=== PATIENT | male | born 1970 | race Caucasian/White ===

== ENCOUNTER → 2020-09-23 07:47 | Outpatient (BNVA) | payer SELFPAY | PROVIDERS: PCP Nurse Practitioner Family; Visit Provider Internal Medicine | DX: Z02.79 Encounter for issue of other medical certificate (principal) ==

== ENCOUNTER 2020-10-25 13:27 | Emergency (ER) | payer OTHER, SELFPAY ==
--- NOTE | ~2020-10-25 | CT_ITS ---
EXAMINATION: CT FACIAL BONES WITH CONTRAST CLINICAL INFORMATION: Right facial swelling. Evaluate for dental abscess. COMPARISON: None TECHNIQUE: Diffuse axial CT images of the facial bones were performed following the administration of 85 mL Omnipaque 350 contrast. Sagittal and coronal reformats were provided and reviewed. This CT examination was performed using dose optimization techniques as appropriate, variously including the following: *Automated exposure control. *Adjustment of mA and/or kV according to patient size (this includes techniques or standardized protocols for targeted exams where dose is matched to indication/reason for exam; i.e. extremities or head). *Use of iterative reconstruction technique. DLP: 421 mGy-cm FINDINGS: There is no acute maxillofacial fracture. The pterygoid plates are intact. The zygomatic arches are intact. The lamina papyracea are intact. The orbital rims are intact. Mucoperiosteal thickening of the right maxillary sinus, consistent with chronic sinusitis. No air-fluid levels are seen. There is no significant deviation of the nasal septum. The ostiomeatal complexes are clear. The lamina papyracea are intact. The ethmoid roofs are symmetric. The carotid canals are normally covered by bone. Adjacent to the roots of the right maxillary first premolar, there is mild lucency, which could indicate an early periapical abscess. There is mild adjacent soft tissue swelling/stranding within the overlying soft tissues which measures up to 1.3 cm in greatest axial dimension. This may represent a reactive lymph node versus phlegmonous change. No abscess formation. The mastoid air cells and visualized middle ear cavities are well aerated. The orbits are normal. The TMJs are unremarkable. The imaged portions of the brain demonstrate no acute abnormality. CT/CT facial bones w con IMPRESSION: 1. Lucency adjacent to the roots of the right maxillary first premolar which could indicate an early periapical abscess. Adjacent soft tissue swelling/stranding indicating phlegmonous change versus a reactive lymph node. No soft tissue abscess formation. 2. Mild chronic sinusitis of the right maxillary sinus.
[2020-10-25 14:11] VITALS: BP 143/98; PULSE 94; RESP 18; TEMP 37; O2SAT 96; BMI 31.4
[2020-10-25 16:42] LABS: MANUAL DIFF FLAG NO
[2020-10-25 16:43] LABS: Basophils Percent Auto 0.4 % (0-2); Eosinophils Absolute Auto 0.1 X10*3/uL (0.0-0.4); Eosinophils Percent Auto 0.8 % (0-4); Hematocrit 42.5 % (42-52); Hemoglobin 13.9 g/dl (14.0-18.0); Imm Gran Abs Auto 0.02 X10*3/uL (0.00-0.03); Imm Gran Pct Auto 0.2 % (0.0-0.4); Lymphocytes Absolute Auto 1.7 X10*3/uL (1.2-4.9); Lymphocytes Percent Auto 16.9 % (20-40); Mean Corpuscular HGB Conc 32.7 g/dl (31.0-36.0); Mean Corpuscular Hemoglobin 30.5 pg (27.0-33.0); Mean Corpuscular Volume 93.2 fL (80-98); Mean Platelet Volume 9.7 fL (9.4-12.4); Monocytes Absolute Auto 0.8 X10*3/uL (0.1-1.2); Monocytes Percent Auto 8.4 % (2-11); Neutrophils Absolute Auto 7.2 X10*3/uL (2.0-8.3); Neutrophils Percent Auto 73.3 % (45-73); Platelet Count 303 X10*3/uL (160-400); Red Blood Count 4.56 X10*6/uL (4.60-5.80); Red Cell Distribution Width 12.1 % (11.0-16.0); White Blood Count 9.8 X10*3/uL (4.8-10.8)
[2020-10-25 17:04] LABS: Lactic Acid 1.9 mmol/L (0.5-2.0)
[2020-10-25 17:07] LABS: Anion Gap 17 (12-20); Blood Urea Nitrogen 7 mg/dL (9-16); Calcium 9.9 mg/dL (8.4-10.2); Carbon Dioxide 29 mmol/L (22-29); Chloride 103 mmol/L (96-108); Creatinine Clr Calc Pharmacy 130.1; Estimated Glomerular Filt Rate > 60; Glucose Random 104 mg/dL (60-115); Potassium 4.6 mmol/L (3.3-5.1); Sodium 144 mmol/L (135-145)
[2020-10-25] MEDS: Clindamycin Phosphate/D5W 600 MG/50 ML PIGGYBACK 100 MG IV (17:10)
[2020-10-25] MEDS: Ketorolac Tromethamine 15 MG/ML VIAL IVPUSH (17:10)
[2020-10-25] MEDS: iohexoL 350 MG/ML 100 ML INFUS..BTL IV (17:55)
--- NOTE | 2020-10-25 17:59 | ED_ITS ---
HPI - Dental/Oral General Chief complaint: Dental/Oral Stated complaint: Abcess Time Seen by Provider: 10/25/20 16:13 Source: patient Mode of arrival: ambulatory History of Present Illness HPI Narrative: 50-year-old male with past medical history of hypertension presenting to the ED complaining of right-sided facial swelling and pain x2 d ays, concern for dental abscess. admits has had broken tooth times years. Denies drainage from area, fever, chills, ear pain, sore throat, swelling or pus drainage, dental trauma or injury Related Data Previous Rx's Medication Instructions Recorded clindamycin HCl 450 mg PO Q8H 7 Days #32 cap 10/25/20 hydrocodone-acetaminophen 1 tab PO Q8H PRN 3 Days #9 tab 10/25/20 ibuprofen 800 mg PO Q8H PRN #14 tab 10/25/20 Allergies Allergy/AdvReac Type Severity Reaction Status Date / Time No Known Allergies Allergy Verified 10/25/20 14:11 Review of Systems Review of Systems: Constitutional: No Fever, No Chills ENT/Mouth: No Ear Pain, No Nasal Congestion, No Sinus Pain, No sore throat, No Swallowing Difficulty, + Dental pain, +facial swelling Cardiovascular: No Chest Pain, No SOB Respiratory: No Cough Gastrointestinal: No Nausea, No Vomiting Musculoskeletal: No joint pain Skin: No Skin Lesions, No rash Yes all other systems are reviewed and are negative [facility] [place] Past Medical History Attestation statement: The following information was validated with the patient. Medical History (Updated 10/25/20 @ 18:06 by NEYDA Jose) HTN (hypertension) Social History Social History Advance Directives: No Advance Directives Information Provided: No Physical Exam Vital Signs: Vital Signs: Last Vital Signs Temp 98.6 F 10/25/20 14:11 Pulse 94 10/25/20 14:11 Resp 18 10/25/20 14:11 BP 143/98 H 10/25/20 14:11 Pulse Ox 96 10/25/20 14:11 Body Mass Index 31.4 Const: General: cooperative, healthy appearing and no acute distress Orientation/consciousness: patient oriented x3 Limitations: no limitations HENMT: Other: right-sided facial swelling noted with tenderness to palpation. No cellulitis. Right upper 5th tooth broken chronically with surrounding gingival swelling, no fluctuance, no drainage/ hospice. Tender to palpation. No appreciable intraoral abscess. Head: Yes normal to inspection Ears: hearing grossly normal bilaterally and TM's normal bilaterally General nose exam: Normal external nose present Mouth: Normal oral and palatal mucosa present Throat: Yes tonsils normal and Yes uvula midline Eyes: General: appearance normal, both eyes and all related structures EOM: EOMs intact bilaterally Neck: Neck: Yes normal visual inspection, Yes no lymphadenopathy and Yes no meningeal signs Resp: Effort & Inspection: normal respiratory effort, not labored, no nasal flaring and no stridor Cardio: Rate: regular rate Skin: Rashes: no rashes Wounds: no wounds Neuro: General: patient oriented x3 and no meningeal signs Gait exam (Neuro): Normal gait present Extrem: General: Yes normal to inspection Course Course Course Narrative: - no leukocytosis, labs otherwise unremarkable, lactic negative patient received 1st dose of IV clindamycin in the ED -1800-- ED care transferred to [facility] pending CT results MDM - Dental/Oral MDM Narrative Medical decision making narrative: 50-year-old male with past medical history of hypertension presenting to the ED complaining of right-sided facial swelling and pain x2 days, concern for dental abscess. admits has had broken tooth times years. On exam vital signs stable, NAD, physical exam as above. Concern for dental abscess. No appreciable intraoral or drainable collection at this time plan: Labs, CT, IV antibiotics, reassess Medical Records Attestation: I reviewed the patient's medical records. Lab Data Attestation: I reviewed the patient's lab results. Result diagrams: 10/25/20 16:35 10/25/20 16:35 Labs: Lab Results 10/25/20 10/25/20 10/25/20 Range/Units 16:35 16:35 16:35 WBC 9.8 (4.8-10.8) X10*3/uL RBC 4.56 L (4.60-5.80) X10*6/uL Hgb 13.9 L (14.0-18.0) g/dl Hct 42.5 (42-52) % MCV 93.2 (80-98) fL MCH 30.5 (27.0-33.0) pg MCHC 32.7 (31.0-36.0) g/dl RDW 12.1 (11.0-16.0) % Plt Count 303 (160-400) X10*3/uL MPV 9.7 (9.4-12.4) fL Immature Gran % (Auto) 0.2 (0.0-0.4) % Neut % (Auto) 73.3 H (45-73) % Lymph % (Auto) 16.9 L (20-40) % [place] % (Auto) 8.4 (2-11) % Eos % (Auto) 0.8 (0-4) % Baso % (Auto) 0.4 (0-2) % Lymph # (Auto) 1.7 (1.2-4.9) X10*3/uL [place] # (Auto) 0.8 (0.1-1.2) X10*3/uL Eos # (Auto) 0.1 (0.0-0.4) X10*3/uL Baso # (Auto) 0.0 (0.0-0.2) X10*3/uL Abs Immat Gran (auto) 0.02 (0.00-0.03) X10*3/uL Absolute Neuts (auto) 7.2 (2.0-8.3) X10*3/uL Absolute Nucleated RBC 0.000 (0.0-0.012) X10*3/uL Nucleated RBC % (auto) 0.0 (0.0-0.2) /100WBC Sodium 144 (135-145) mmol/L Potassium 4.6 (3.3-5.1) mmol/L Chloride 103 (96-108) mmol/L Carbon Dioxide 29 (22-29) mmol/L Anion Gap 17 (12-20) BUN 7 L (9-16) mg/dL Creatinine 0.77 (0.5-1.4) mg/dL Estim Creat Clear Calc 130.1 Estimated GFR > 60 Random Glucose 104 (60-115) mg/dL Lactic Acid 1.9 (0.5-2.0) mmol/L Calcium 9.9 (8.4-10.2) mg/dL Discharge Plan Discharge Clinical Impression: Dental abscess Additional Instructions: clindamycin as an antibiotic, take as prescribed [place] with no opiate pain medication, take only when pain is severe for the next 3 days, in addition take ibuprofen you need to follow-up with a dentist deidra Prescriptions: New clindamycin HCl 300 mg capsule 450 mg PO Q8H 7 Days Qty: 32 RF: 0 hydrocodone-acetaminophen 5-325 mg tablet 1 tab PO Q8H PRN (Reason: pain, severe) 3 Days Qty: 9 RF: 0 ibuprofen 800 mg tablet 800 mg PO Q8H PRN (Reason: pain) Qty: 14 RF: 0 Referrals: Anusha Morgan DMD [Dentist] - 2 days Arley Bond DDS [Physician] - 2 days
[2020-10-25] MEDS: 0.9 % Sodium Chloride 1,000 ML 999 ML IVCONT (18:14)
[2020-10-25] MEDS: Lidocaine HCl 2 % MPF 5 ML VIAL SUBCUT (19:46)
--- NOTE | 2020-10-25 20:54 | PC.NURSE ---
[facility] BOJORQUEZRICKY ATTEMPTED TO DRAIN ABSCESS WITH NO EFFECT LIDO APPLIED TO THE AREA.
== END 2020-10-25 20:55 | disposition home or self-care (01) ==
PROVIDERS: Physician Assistant; Emergency Provider Emergency Medicine Emergency Medical Services; PCP Nurse Practitioner Family
DX: K04.7 Periapical abscess without sinus (principal); I10 Essential (primary) hypertension
CPT/HCPCS: 36415; 70487; 80048; 83605; 85025; 87040; 96361; 96365; 96372; 96375; 99284; J1885; Q9967

== ENCOUNTER 2024-08-17 16:24 | Emergency (ER) | payer OTHER, SELFPAY ==
--- NOTE | ~2024-08-17 | CT_ITS ---
CLINICAL HISTORY: CP, SOB, tachycardia CT angiography chest with contrast. 3D Postprocessing. Comparison: CR - XR CHEST 2V - 08/17/24 16:56 EDT Findings: The heart size is normal. RV/LV ratio is normal. Unremarkable thoracic aorta and great vessels. No aneurysm. No pulmonary artery filling defects. The visualized thyroid and mediastinum are unremarkable. A 5.5 x 4.6 x 4.2 cm right hilar well-circumscribed lesion measuring simple fluid density. Lungs are clear. The upper abdomen is unremarkable. The bones are intact. IMPRESSION: 1. No pulmonary embolus. No acute aortic syndrome. Lungs are clear. 2. A 5.5 cm right hilar cystic lesion. Differentials include forgut duplication cyst, or cystic lymphadenopathy. Correlate with prior imaging if available or short-term follow-up is recommended. This document has been electronically signed by: Donna Toribio MD on 08/17/2024 22:42:17
--- NOTE | ~2024-08-17 | XR_ITS ---
CLINICAL HISTORY: chest pain 2 views of the chest. Findings: Heart size is normal. There is no consolidation. No pleural effusion is seen. Impression: No consolidation. There is mild prominence of the right hilum that is indeterminate. Recommend comparison to previous or consider follow-up CT to exclude an underlying abnormality. This document has been electronically signed by: Keanu Del Cid MD on 08/17/2024 17:18:56
--- NOTE | ~2024-08-17 | US_ITS ---
CLINICAL HISTORY: calf pain, SOB, CP Right lower extremity venous ultrasound. Findings: The deep venous system is normally compressible. There is color Doppler flow with augmentation. Impression: No DVT is identified. This document has been electronically signed by: Keanu Del Cid MD on 08/17/2024 21:08:09
--- NOTE | 2024-08-17 16:26 | ECG_ITS ---
Test Reason : chest pain Blood Pressure : */* mmHG Vent. Rate : 113 BPM Atrial Rate : 113 BPM P-R Int : 130 ms QRS Dur : 70 ms QT Int : 300 ms P-R-T Axes : 46 -9 31 degrees QTcB Int : 411 ms Sinus tachycardia Otherwise normal ECG No previous ECGs available Referred By: Nicole Gilbert Electronically Signed By: REYMUNDO RICKS
--- NOTE | 2024-08-17 16:31 | ED.GENADULT ---
HPI - General Adult General Chief complaint: Chest Pain Stated complaint: chest pain Time Seen by Provider: 08/17/24 19:44 Source: patient Mode of arrival: ambulatory Limitations: no limitations History of Present Illness ED Provider: jero longo np HPI narrative: Patient is a 54-year-old male who presents emergency department for evaluation. He reports 3 days ago; 08/15/2024 at 04:00 he awoke from sleep with a diffuse anterior chest pain described as a pressure. Since its onset the pain has been constant with a varying intensity. Feels it radiate down the bilateral arms. Pain is at times exacerbated when lying in a side-lying position. He also endorses having shortness of breath noticeably on exertion or when going upstairs which is atypical for him. When asked, he does admit to having right lateral calf pain over the past couple of months, gets worse with excessive walking, has noticed a mild increase in the pain recently. He denies history of VTE/malignancy. He previously was a cigarette smoker but has quit approximately 8 years ago. Related Data Previous Rx's ?Medication ?Instructions ?Recorded clindamycin HCl 300 mg capsule 450 mg (1.5 x 300 mg) PO Q8H 7 10/25/20 days #32 caps hydrocodone 5 mg-acetaminophen 325 1 tab PO Q8H PRN pain, severe 3 10/25/20 mg tablet days #9 tabs ibuprofen 800 mg tablet 800 mg PO Q8H PRN pain #14 tabs 10/25/20 Allergies Allergy/AdvReac Type Severity Reaction Status Date / Time No Known Allergies Allergy Verified 08/17/24 16:35 Review of Systems Review of Systems: Yes all other systems are reviewed and are negative PMFSH Past Medical History Attestation statement: The following information was validated with the patient. Source: old records reviewed Medical History HTN (hypertension) Social History Social History Smoked in Last 30 Days: No Use of substances other than those prescribed or required for medical reasons: No Advance Directives: No Advance Directives Information Provided: Yes Physical Exam ED Vital Signs: Vital Signs - 24 hr 08/17/24 16:32 08/17/24 18:00 08/17/24 20:00 Temperature 100.2 F 98.3 F 98.3 F Pulse Rate 113 H 96 96 Respiratory Rate 16 16 16 Blood Pressure 129/83 140/85 H 139/92 H Pulse Oximetry 97 100 99 Oxygen Delivery Method Room Air Room Air Room Air 08/17/24 21:11 08/17/24 22:00 Temperature 99.6 F 98.3 F Pulse Rate 93 76 Respiratory Rate 19 16 Blood Pressure 126/88 128/77 Pulse Oximetry 96 98 Oxygen Delivery Method Room Air Room Air BMI result Body Mass Index 28.5 Appearance: Alert.?Oriented to person, place and time. No acute distress.?Normal affect. Eyes: Pupils equal, round and reactive to light.? ENT: Pharynx normal.?? Neck: Normal inspection.? Neck supple.??No JVD. CVS: Heart sounds normal. Normal heart rate and rhythm.? Pulses normal.?? Respiratory: No respiratory distress.? Lung sounds clear to auscultation bilaterally?? Abdomen: Soft and non-tender. Normoactive bowel sounds. No pulsatile mass.?? Skin: Skin warm and dry.? Normal skin color.? ?? Extremities: No lower extremity edema.? No calf ttp? Neuro: Moves all extremities spontaneously. Sensation intact bilaterally. CN II-XII intact. No focal neuro deficits. Ambulates with normal steady gait. Course Course Course Narrative: This is a rapid medical exam performed by Rubina Gilbert NP: Additional HPI, ROS, PE not included below will be deferred to primary provider. Patient is a 54-year-old male presenting with complaint of chest pain since 4am Saturday, has been constant since that time. Rates 8/10. Associated dyspnea, worse with exertion. Pain radiates down both arms. Denies pmhx but has not been to a doctor in some time. Plan: EKG, labs, CXR Reevaluation(s) Reevaluation #1: CT angio of the chest is without evidence of pulmonary embolism, no consolidation reports rate to suggest pneumonia. There is a 5.5 cm right hilar cystic lesion, reviewed this finding with patient, recommend outpatient follow-up with pulmonology I provided contact information. Delta troponin is flat not consistent with ACS. Reviewed possibly musculoskeletal etiology versus viral inflammatory condition. Conservative treatment, outpatient follow-up with PCP and strict return precautions. IMPRESSION: 1. No pulmonary embolus. No acute aortic syndrome. Lungs are clear. 2. A 5.5 cm right hilar cystic lesion. Differentials include forgut duplication cyst, or cystic lymphadenopathy. Correlate with prior imaging if available or short-term follow-up is recommended. Medications Administered Discontinued Medications Generic Name Dose Route Start Last Admin Trade Name Ellen PRN Reason Stop Dose Admin Acetaminophen 975 mg 08/17/24 21:41 08/17/24 21:57 Acetaminophen 325 Mg Tablet PO 08/17/24 21:42 975 mg ONCE ONE Administration Sodium Chloride 1,000 mls @ 999 mls/hr 08/17/24 20:00 08/17/24 20:16 Ns IV 08/17/24 21:00 999 mls/hr .Q1H1M JEB Administration Iohexol 65 ml 08/17/24 22:02 08/17/24 22:03 Iohexol 350 Mg/Ml 100 Ml Infus..Btl IV 08/17/24 22:03 65 ml ONCE ONE Administration Medical Decision Making Medical Decision Making [facility] Narrative: Patient is a 54 year past medical history of hypertension not currently medicated as blood pressure was maintained s/p weight loss 2 years ago who presents to the emergency department for evaluation with complaint of chest pain, shortness of breath constant in nature and varying intensity over the past 3 days as per HPI in addition to right lateral calf pain over the past few months. No evidence of volume overload or shock on exam. EKG without signs of acute ischemia, without evidence of STEMI revealing a sinus tachycardia with ventricular rate of 113, QTC 411. Low suspicion for pneumothorax, thoracic aortic dissection, cardiac effusion / tamponade. No recent trauma or injury, no tracheal deviation, unlikely tension pneumothorax. No recent URI symptoms to suggest viral illness, pneumonia, costochondritis. Given his associated right calf pain, will obtain CT angio of the chest to exclude pulmonary embolism in addition to venous duplex ultrasound of the right lower extremity. No abdominal tenderness upon palpation, negative Kidd sign, unlikely acute cholecystitis, choledocholithiasis, no fever or jaundice to suggest acute cholangitis, may possibly be biliary colic secondary to cholelithiasis. Denies associated acid reflux, no tenderness upon palpation over the epigastrium or left upper quadrant to suggest gastritis, no recent hematemesis history less likely to suggest PUD. Denies excessive alcohol consumption, history of diabetes, lower suspicion acute pancreatitis. Differential Diagnosis Differential Diagnoses: The differential diagnosis associated with the presentation includes (See narrative above) Admission/Observation Consideration of admission/observation: Escalation of care including admission/observation considered (See narrative above and course narrative for further detail) Lab Data MDM Lab Attestation statement: I reviewed the patient's lab results. CBC reveals a mild leukocytosis 11,600, mild normocytic anemia that does not meet transfusion criteria, no thrombocytopenia. No electrolyte derangement. No NATAN. LFTs unremarkable. High sensitive troponin negative x2. Viral serologies are negative. 08/17/24 16:37 08/17/24 16:37 Labs: Lab Results 08/17/24 Range/Units 16:37 WBC 11.6 H (4.8-10.8) X10*3/uL RBC 4.24 L (4.60-5.80) X10*6/uL Hgb 13.3 L (14.0-18.0) g/dl Hct 38.3 L (42.0-52.0) % MCV 90.3 (80.0-98.0) fL MCH 31.4 (27.0-33.0) pg MCHC 34.7 (31.0-36.0) g/dl RDW 11.7 (11.0-16.0) % Plt Count 297 (160-400) X10*3/uL MPV 9.7 (9.4-12.4) fL Immature Gran % (Auto) 0.3 (0.0-0.4) % Neut % (Auto) 83.2 H (45-73) % Lymph % (Auto) 6.8 L (20-40) % [place] % (Auto) 8.9 (2-11) % Eos % (Auto) 0.3 (0-4) % Baso % (Auto) 0.5 (0-2) % Lymph # (Auto) 0.8 L (1.2-4.9) X10*3/uL [place] # (Auto) 1.0 (0.1-1.2) X10*3/uL Eos # (Auto) 0.0 (0.0-0.4) X10*3/uL Baso # (Auto) 0.1 (0.0-0.2) X10*3/uL Abs Immat Gran (auto) 0.04 H (0.00-0.03) X10*3/uL Absolute Neuts (auto) 9.6 H (2.0-8.3) x10*3/uL Absolute Nucleated RBC 0.000 (0.0-0.012) X10*3/uL Nucleated RBC % (auto) 0.0 (0.0-0.2) /100WBC Sodium 137 (135-145) mmol/L Potassium 3.8 (3.3-5.1) mmol/L Chloride 101 (96-108) mmol/L Carbon Dioxide 24 (22-29) mmol/L Anion Gap 16 (12-20) BUN 10 (9-16) mg/dL Creatinine 0.81 (0.5-1.4) mg/dL Estim Creat Clear Calc 112.7 Estimated GFR > 60 Random Glucose 115 (60-115) mg/dL Calcium 9.7 (8.4-10.2) mg/dL Magnesium 2.1 (1.6-2.6) mg/dL Total Bilirubin 0.4 (0.0-1.0) mg/dL AST 36 (5-37) U/L ALT 19 (0-40) U/L Alkaline Phosphatase 75 (39-117) U/L Troponin I High Sens < 2.7 (<3.5-35.0) ng/L Total Protein 7.7 (6.5-8.0) g/dL Albumin 4.2 (3.5-5.0) g/dL Influenza Type A (PCR) NEGATIVE (Negative) Influenza Type B (PCR) NEGATIVE (Negative) RSV RNA Qual (PCR) NEGATIVE (Negative) SARS-CoV-2 RNA (RT-PCR) NEGATIVE (Negative) Independent Interpretation I performed an independent interpretation of an: EKG (See narrative above) and Plain X-Ray (No notable consolidation or infiltrate) Radiology Impression Discussion of test interpretation with radiology: I have reviewed the radiologist's reading. Radiologist Impression: 2 views of the chest. Findings: Heart size is normal. There is no consolidation. No pleural effusion is seen. Impression: No consolidation. There is mild prominence of the right hilum that is indeterminate. Recommend comparison to previous or consider follow-up CT to exclude an underlying abnormality. CT angiography chest with contrast. 3D Postprocessing. Comparison: CR - XR CHEST 2V - 08/17/24 16:56 EDT Findings: The heart size is normal. RV/LV ratio is normal. Unremarkable thoracic aorta and great vessels. No aneurysm. No pulmonary artery filling defects. The visualized thyroid and mediastinum are unremarkable. A 5.5 x 4.6 x 4.2 cm right hilar well-circumscribed lesion measuring simple fluid density. Lungs are clear. The upper abdomen is unremarkable. The bones are intact. IMPRESSION: 1. No pulmonary embolus. No acute aortic syndrome. Lungs are clear. 2. A 5.5 cm right hilar cystic lesion. Differentials include forgut duplication cyst, or cystic lymphadenopathy. Correlate with prior imaging if available or short-term follow-up is recommended. Independent Historian Clinical information obtained from an independent historian. History obtained from or confirmed by: Spouse Chronic Conditions Patient?s care impacted by: Other (See narrative above) Discharge Plan Discharge Clinical Impression: Chest pain, Lesion of lung Patient Disposition: Home, Self-Care Instructions: Chest Pain (ED) Additional Instructions: Ultrasound of your right leg today does not show evidence of a blood clot which is very reassuring. The CT scan obtained of your chest does not show evidence of pneumonia, or a blood clot in the lungs. There was an incidental finding of a cystic lesion in the right lung. This is nonspecific and likely not the reason for your symptoms today. However it should be followed up outpatient with pulmonology. I provided contact information for the pulmonology office associated with our hospital. EKG and blood work does not favor a heart attack as the cause for your symptoms. Your pain may be secondary to an inflammatory viral condition versus musculoskeletal pain Be sure to rest over the next few days, You can take ibuprofen 200 mg, 3 tablets (600mg) every 6-8 hours as needed for pain, in addition to Tylenol 500 mg, 2 tablets (1,000mg) every 4-6 hours as needed for pain, but not to exceed 3 doses daily (3,000mg).? I have sent an albuterol inhaler prescription to your pharmacy to use as needed for shortness of breath 2 puffs every 4-6 hours. IMPRESSION: CT angio chest 1. No pulmonary embolus. No acute aortic syndrome. Lungs are clear. 2. A 5.5 cm right hilar cystic lesion. Differentials include forgut duplication cyst, or cystic lymphadenopathy. Correlate with prior imaging if available or short-term follow-up is recommended. Prescriptions: No Action clindamycin HCl 300 mg capsule 450 mg PO Q8H 7 Days Qty: 32 0RF hydrocodone-acetaminophen 5-325 mg tablet 1 tab PO Q8H PRN (Reason: pain, severe) 3 Days Qty: 9 0RF ibuprofen 800 mg tablet 800 mg PO Q8H PRN (Reason: pain) Qty: 14 0RF Referrals: Jp Grider MD [Physician] - Cruzito Keller MD [Physician] - Print Language: Armenian
[2024-08-17 16:32] VITALS: BP 129/83; PULSE 113; RESP 16; TEMP 37.9; O2SAT 97; BMI 28.5
[2024-08-17 16:49] LABS: MANUAL DIFF FLAG NO
[2024-08-17 16:53] LABS: Basophils Absolute Auto 0.1 X10*3/uL (0.0-0.2); Basophils Percent Auto 0.5 % (0-2); Eosinophils Percent Auto 0.3 % (0-4); Hematocrit 38.3 % (42.0-52.0); Hemoglobin 13.3 g/dl (14.0-18.0); Imm Gran Abs Auto 0.04 X10*3/uL (0.00-0.03); Imm Gran Pct Auto 0.3 % (0.0-0.4); Lymphocytes Absolute Auto 0.8 X10*3/uL (1.2-4.9); Lymphocytes Percent Auto 6.8 % (20-40); Mean Corpuscular HGB Conc 34.7 g/dl (31.0-36.0); Mean Corpuscular Hemoglobin 31.4 pg (27.0-33.0); Mean Corpuscular Volume 90.3 fL (80.0-98.0); Mean Platelet Volume 9.7 fL (9.4-12.4); Monocytes Percent Auto 8.9 % (2-11); Neutrophils Absolute Auto 9.6 x10*3/uL (2.0-8.3); Neutrophils Percent Auto 83.2 % (45-73); Platelet Count 297 X10*3/uL (160-400); Red Blood Count 4.24 X10*6/uL (4.60-5.80); Red Cell Distribution Width 11.7 % (11.0-16.0); White Blood Count 11.6 X10*3/uL (4.8-10.8)
[2024-08-17 17:07] LABS: Alanine Aminotransferase 19 U/L (0-40); Albumin Level 4.2 g/dL (3.5-5.0); Alkaline Phosphatase 75 U/L (39-117); Anion Gap 16 (12-20); Aspartate Amino Transferase 36 U/L (5-37); Bilirubin Total 0.4 mg/dL (0.0-1.0); Blood Urea Nitrogen 10 mg/dL (9-16); Calcium 9.7 mg/dL (8.4-10.2); Carbon Dioxide 24 mmol/L (22-29); Chloride 101 mmol/L (96-108); Creatinine Clr Calc Pharmacy 112.7; Estimated Glomerular Filt Rate > 60; Glucose Random 115 mg/dL (60-115); Magnesium 2.1 mg/dL (1.6-2.6); Potassium 3.8 mmol/L (3.3-5.1); Sodium 137 mmol/L (135-145); Total Protein 7.7 g/dL (6.5-8.0)
[2024-08-17 17:14] LABS: Troponin-I High Sensitivity < 2.7 ng/L (<3.5-35.0)
[2024-08-17 17:31] LABS: Influenza A PCR NEGATIVE (Negative); Influenza B PCR NEGATIVE (Negative); Resp Syncy Virus RNA Qual PCR NEGATIVE (Negative); SARS COV2 PCR INHOUSE NEGATIVE (Negative)
[2024-08-17 18:00] VITALS: BP 140/85; PULSE 96; RESP 16; TEMP 36.8; O2SAT 100
[2024-08-17 20:00] VITALS: BP 139/92; PULSE 96; RESP 16; TEMP 36.8; O2SAT 99
[2024-08-17] MEDS: 0.9 % Sodium Chloride 1,000 ML 999 ML IV (20:16)
[2024-08-17 21:11] VITALS: BP 126/88; PULSE 93; RESP 19; TEMP 37.6; O2SAT 96
[2024-08-17] MEDS: Acetaminophen 325 MG TABLET 975 MG PO (21:57)
[2024-08-17 22:00] VITALS: BP 128/77; PULSE 76; RESP 16; TEMP 36.8; O2SAT 98
[2024-08-17] MEDS: iohexoL 350 MG/ML 100 ML INFUS..BTL 65 ML IV (22:03)
[2024-08-18 00:05] LABS: Troponin-I High Sensitivity < 2.7 ng/L (<3.5-35.0)
[2024-08-18 00:28] VITALS: BP 128/77; PULSE 76; RESP 16; TEMP 36.8; O2SAT 98
== END 2024-08-18 00:28 | disposition home or self-care (01) ==
PROVIDERS: Registered Nurse Emergency; Emergency Provider Emergency Medicine Emergency Medical Services
DX: R07.89 Other chest pain (principal); R60.0 Localized edema; R06.02 Shortness of breath; R00.0 Tachycardia, unspecified; Z79.899 Other long term (current) drug therapy; Z03.818 Encounter for observation for suspected exposure to other biological agents ruled out
CPT/HCPCS: 0241U; 36415; 71046; 71275; 80053; 83735; 84484; 85025; 93005; 93971; 99284; 99285; Q9967

== ENCOUNTER → 2024-08-17 16:26 | Outpatient (BNV) | payer OTHER, SELFPAY | PROVIDERS: Emergency Provider Emergency Medicine Emergency Medical Services; Visit Provider Internal Medicine | DX: R00.0 Tachycardia, unspecified (principal) | CPT/HCPCS: 93010 ==

== ENCOUNTER → 2024-08-17 16:34 | Outpatient (BNV) | payer OTHER, SELFPAY | PROVIDERS: PCP Surgery Plastic and Reconstructive Surgery; Visit Provider Radiology Diagnostic Radiology | DX: R07.9 Chest pain, unspecified (principal); M79.661 Pain in right lower leg | CPT/HCPCS: 71046; 71275; 93971 ==

== ENCOUNTER 2024-08-27 14:34 | Outpatient (AMB) | payer OTHER, SELFPAY ==
[2024-08-27 14:35] VITALS: BP 114/70; PULSE 88; O2SAT 97; BMI 28.3
--- NOTE | 2024-08-27 14:35 | MHC.OFFVIS ---
Vital Signs 08/27/24 14:35 Height 5 ft 9 in Weight 191 lb 12.835 oz BMI 28.3 BP 114/70 Blood Pressure Location Lt brachial Position Sitting Pulse 88 Pulse Oximetry (%) 97 Oxygen Delivery Method Room Air Intake Visit Reasons: Abnormal CT scan Customer Greeter Required: No Accompanied by: Self / Same As Patient Allergies No Known Allergies Allergy (Verified 08/27/24 14:39) HPI Comments Details: The patient is here for pulmonary evaluation. The patient is a 54-year-old gentleman found to have an abnormal hilar masslike density CAT scan. Apparently the patient was in his usual state health until back around [facility] when he started developing sudden onset chest discomfort. It was severe in nature. He has never had anything like this before. He was taken to the [facility] ED for further evaluation. He had blood work. He had a slight elevation in the white count. Viral testing was negative. He did undergo a CTA to rule out blood clots. No evidence of any thromboembolic disease. Although he appeared to have a masslike density. Based on the Hounsfield units seems to be more like fluid filled although is not 100% it looks irregular hilar and is pressing on the right upper airway airway causing some narrowing and also of the bronchus intermedius. The areas large which is involved. No other involvement in the lungs. We did personally review the images together. The patient does not have any previous imaging to compare. We did talk about the options. One option would be to do an endobronchial ultrasound with transbronchial needle aspirations which I believe will be the best option to see what this density is all about. CAT scans are not so good at looking at fluid densities was hard to know if is necrotic mass or if is actually fluid filled. In addition to that a PET scan would be reasonable. Although would not differentiate so much from an infectious versus malignant process. The patient is agreeable to undergoing the endobronchial ultrasound bronchoscopy. In view of the size in the concerns will go ahead and plan for the procedure next week. The patient is aware he is going to be NPO after midnight and he does not take any blood thinners or any GLP inhibitors. [facility] Medical History (Updated 08/27/24 @ 21:50 by Dutch Rm MD) Hilar mass HTN (hypertension) Social History (Updated 08/27/24 @ 14:40 by Luann Sky CMA) Alcohol intake: current Alcohol intake frequency: a few times a week Alcohol type: beer Patient Tobacco Use Status: Former Tobacco user Review of Systems Const Denies chills, Denies daytime sleepiness, Denies fatigue, Denies fever(s), Denies poor appetite, Denies snoring, Denies stops breathing during sleep, Denies weakness and Reports weight loss Eyes Denies loss of vision ENT Denies dizziness and Denies hearing loss Card Denies chest pain, Denies irregular heart rhythm, Denies claudication, Denies leg edema, Denies lightheadedness, Denies palpitations, Denies dyspnea on exertion and Denies orthopnea Resp Denies cough, Denies excessive phlegm production, Denies dyspnea on exertion, Denies snoring and Denies wheezing GI Denies abdominal pain, Denies hematochezia, Denies change in bowel habits, Denies nausea and Denies vomiting Denies dysuria and Denies urinary frequency Musc Denies arthralgias, Denies muscle weakness, Denies numbness and Denies other Skin/Breast Denies nail changes and Denies rash Neuro Denies Abnormal speech present, Denies dizziness, Denies loss of vision, Denies memory loss, Denies numbness and Denies weakness Psych Denies depression and Denies memory loss Endo Denies fatigue and Denies palpitations Lester/Lymph Denies easy bruising Aller/Immun Denies wheezing Physical Exam Vital Signs: Last Vital Signs Pulse 88 08/27/24 14:35 BP 114/70 08/27/24 14:35 Pulse Ox 97 08/27/24 14:35 Oxygen Delivery Method Room Air 08/27/24 14:35 BMI result Body Mass Index 28.3 Const General: comfortable HEENT Head: Yes normocephalic Neck Neck: Yes no lymphadenopathy and Yes supple Chest Chest palpation & inspection: normal inspection of the chest Breast/axilla inspection: normal inspection of the axillae Resp Effort & Inspection: normal respiratory effort Auscultation: clear to auscultation bilaterally Cardio Rate: regular rate Heart sounds: S1 normal heart sound present and S2 normal heart sound present GI Palpation (GI): Soft to palpation Skin General skin exam: no rashes or lesions noted Neuro Speech: No Abnormal speech present Extrem General: Yes no clubbing, cyanosis or edema Assessment & Plan Assessment & Plan (1) Hilar mass: Code(s): R91.8 - Other nonspecific abnormal finding of lung field Category: Medical Plan EBUS bronchoscopy to assess right hilar mass/cystic lesion. Scheduled for 09/03 at 11am Medications: Discontinued clindamycin HCl Discontinued Reason: Patient no longer taking 450 mg (1.5 x 300 mg) PO Q8H 7 days 32 caps 0RF hydrocodone-acetaminophen 5-325 mg Discontinued Reason: Patient no longer taking 1 tab PO Q8H 3 days PRN 9 tabs 0RF pain, severe ibuprofen Discontinued Reason: Patient no longer taking 800 mg PO Q8H PRN 14 tabs 0RF pain Coding Level of Care Code New Pt Level 5 (27984) Diagnoses Hilar mass R91.8 Time Spent (min) 60
--- OUTSIDE RECORDS SUMMARY | 2024-08-27 16:37 | XMS_ITS | Clinical Summary ---
Author Organization [facility] it Address [address] [place] [address] Care Team Providers Care Presser Hand Name Role Phone Unavailable Primary Care Provider Unavailabl e Social History Tobacco Use Types Packs/Day Years Used Date Smoking Tobacco: Never Assessed Sex and Gender Information Value Date Recorded Sex Assigned at Not on file Legal Sex Male 4:57 PM EST Gender Identity Not on file Sexual Orientation Not on file Plan of Treatment Health Maintenance Due Date Last Done Comments DTaP,Tdap,and Td Vaccines (1 - Tdap) 1988 Hepatitis B Vaccines (1 of 3 - 19+ 3-dose series) 1988 Pneumococcal Vaccine: 50+ Ye ars (1 of 1 - PCV) 07/30/2019 Zoster Vaccines (1 of 2) 07/30/2019 COVID-19 Vaccine (1 - 2023-2 5 season) 2023 Influenza Vaccine (Season Ended) 2024 HIB Vaccines Aged Out No longer eligi ble based on patient's age to complete this topic HPV Vaccines Aged Out No longer eligi ble based on patient's age to complete this topic Hepatitis A Vaccines Aged Out No long er eligible based on patient's age to complete this topic IPV Vaccines Aged Out No longer eligi ble based on patient's age to complete this topic MMR Vaccines Aged Out No longer eligi ble based on patient's age to complete this topic Meningococcal ACWY Vaccine Aged Out N o longer eligible based on patient's age to complete this topic Meningococcal B Vaccine Aged Out No l onger eligible based on patient's age to complete this topic Pneumococcal Vaccine: Pediat rics (0 to 5 Years) and At-Risk Patients (6 to 64 Years) Aged Out No longer eligible b ased on patient's age to complete this topic RSV Immunization Patients Un julito 20 months Aged Out No longer eligible b ased on patient's age to complete this topic Varicella Vaccines Aged Out No longer eligible based on patient's age to complete this topic
== END 2024-08-27 15:23 | disposition home or self-care (01) ==
LOC: HO.HPS 14:34
PROVIDERS: PCP Nurse Practitioner Primary Care; Referring Provider Registered Nurse Emergency; Visit Provider Hospitalist
DX: R91.8 Other nonspecific abnormal finding of lung field (principal)
CPT/HCPCS: 99205

== ENCOUNTER → 2024-08-27 14:34 | Outpatient (BNVA) | payer OTHER, SELFPAY | PROVIDERS: PCP Nurse Practitioner Primary Care; Referring Provider Registered Nurse Emergency; Visit Provider Hospitalist ==

== ENCOUNTER 2024-09-03 09:21 | Day surgery (SDC) | payer OTHER, SELFPAY ==
--- NOTE | 2024-09-01 13:57 | P.CONAN_ITS ---
Documented by User: Daniela Muniz NP 09/01/24 13:59 HPI - Anesthesia Eval Consult details Narrative: 54yo M for Endoscopic Bronchial Ultrasound PMFSH Active Problems Active Problems: All Active Problems Hilar mass (Acute) Past Medical History Medical History Hilar mass HTN (hypertension) Social History Social History Alcohol intake: current Alcohol intake frequency: a few times a week Alcohol type: beer Patient Tobacco Use Status: Former Tobacco user Use of substances other than those prescribed or required for medical reasons: No Are you DNR?: No Advance Directives: No Advance Directives Information Provided: Yes Meds Allergies Allergy/AdvReac Type Severity Reaction Status Date / Time No Known Allergies Allergy Verified 08/27/24 14:39 Home Medications ?Medication ?Instructions ?Recorded ?Confirmed ?Last Taken ?Type tadalafil 20 mg tablet 20 mg PO PRN erectile disfunction 09/03/24 09/03/24 Unknown History Exam Pertinent Lab Results Pertinent Lab Results: Laboratory Tests 08/17/24 16:37 WBC 11.6 H Hgb 13.3 L Hct 38.3 L Plt Count 297 Sodium 137 Potassium 3.8 Chloride 101 Carbon Dioxide 24 BUN 10 Creatinine 0.81 Narrative Narrative: EKG 07/2024 Vent. Rate : 113 BPM Atrial Rate : 113 BPM P-R Int : 130 ms QRS Dur : 70 ms QT Int : 300 ms P-R-T Axes : 46 -9 31 degrees QTcB Int : 411 ms Sinus tachycardia Otherwise normal ECG No previous ECGs available Chest CTA 07/2024 IMPRESSION: 1. No pulmonary embolus. No acute aortic syndrome. Lungs are clear. 2. A 5.5 cm right hilar cystic lesion. Differentials include forgut duplication cyst, or cystic lymphadenopathy. Correlate with prior imaging if available or short-term follow-up is recommended. Assessment and Plan Assessment Anesthesia Assessment: Chart Reviewed Documented by User: Vaishali Koroma MD 09/03/24 13:02 [facility] Past Medical History Medical History Hilar mass HTN (hypertension) Surgical History History of Problems with Anesthesia: No Social History Social History Alcohol intake: current Alcohol intake frequency: a few times a week Alcohol type: beer Patient Tobacco Use Status: Former Tobacco user Use of substances other than those prescribed or required for medical reasons: No Are you DNR?: No Advance Directives: No Advance Directives Information Provided: Yes Meds Allergies Allergy/AdvReac Type Severity Reaction Status Date / Time No Known Allergies Allergy Verified 08/27/24 14:39 Home Medications ?Medication ?Instructions ?Recorded ?Confirmed ?Last Taken ?Type tadalafil 20 mg tablet 20 mg PO PRN erectile disfunction 09/03/24 09/03/24 Unknown History Exam Airway Mallampati Class: II TM Dist: >3cm Neck ROM: Full Loose/Missing/Broken Teeth: No Heart: RRR Lungs: CTA Assessment and Plan Assessment Anesthesia Assessment: Anesthesia Plan Discussed Final Anesthetic Review History of Problems with Anesthesia: No NPO: Yes ASA Class: II and III Final Preanesthetic Review: Meds/Allgs Chart Reviewed, Consent Obtained/Reviewed and Anes Risks/Benef Reviewed Patient Risk: Low Procedure Risk: Intermediate Anesthetic Plan Anesthetic Plan: GA Disposition: Standard PACU
--- NOTE | ~2024-09-03 | XR_ITS ---
EXAMINATION: XR CHEST CLINICAL INFORMATION: post bronch COMPARISON: August 17, 2024 TECHNIQUE: Frontal view of the chest was obtained. FINDINGS: Soft tissue opacity superior aspect of the right pulmonary hilum. No pleural effusion. No pneumothorax. Heart silhouette size is normal. Multilevel thoracic spondylosis. XR/XR chest 1V IMPRESSION: Stable chest without gross pneumothorax. Mass, right pulmonary hilum. Electronically signed by: Paulino Mehta MD 09/03/2024 01:36 PM EDT
[2024-09-03 09:25] VITALS: BMI 27.9
[2024-09-03 09:37] VITALS: BP 126/85; PULSE 74; RESP 16; TEMP 36.8; O2SAT 97
--- NOTE | 2024-09-03 11:22 | MHC.SHP ---
Pre-Procedural Eval Section A - 24 Hr Update-Section A only Date of Service: 09/03/24 The patient is an INPATIENT: No Changes since office visit: No Cold of Flu in the past 2 weeks, No New Medical Problems, No Changes in Medication and No Patient answered all questions The patient has been examined within 24 hours of the surgical procedure. The History & Physical has been completed within 30 days and I have reviewed it.: Yes Section B - Complete if H&P > 30 days Chief Complaint: Other nonspecific abnormal finding of lung field Allergies: Allergies Allergy/AdvReac Type Severity Reaction Status Date / Time No Known Allergies Allergy Verified 08/27/24 14:39 Plan I have reviewed the history and physical and performed a pertinent physical examination on my patient. No changes have occurred unless specified. Time Spent With Patient Time: Total time managing care of this patient today ____ minutes.
[2024-09-03 12:42] VITALS: BP 122/87; PULSE 91; RESP 18; TEMP 36.1; O2SAT 99
[2024-09-03 12:47] VITALS: BP 119/84; PULSE 78; RESP 18; O2SAT 96
[2024-09-03 12:52] VITALS: BP 124/89; PULSE 69; RESP 16; O2SAT 96
[2024-09-03 12:57] VITALS: BP 121/83; PULSE 70; RESP 16; O2SAT 96
[2024-09-03 13:12] VITALS: BP 125/84; PULSE 68; RESP 16; TEMP 36.1; O2SAT 97
--- NOTE | 2024-09-03 16:18 | P.BOP_ITS ---
Brief Operative Note Date of Service: 09/03/24 Pre-op diagnosis: hilar mass Post-op diagnosis: same Procedure: EBUS with TBNA of hilar mass, bronchosopcy with brushings Implants: Surgeon: Dutch Rm MD Anesthesia: GETA Was an Software Development Specialist used for this Procedure?: No Estimated blood loss (mL): 0 Pathology: other (right hilar mass TBNA) Condition: stable Disposition: same day
--- NOTE | 2024-09-03 21:52 | OP_ITS ---
DATE OF SERVICE: 09/03/2024 SURGEON: Dutch Rm MD PREOPERATIVE DIAGNOSIS: Hilar mass. POSTOPERATIVE DIAGNOSIS: Hilar mass. PROCEDURE PERFORMED: ESTIMATED BLOOD LOSS: COMPLICATIONS: ANESTHESIA: General endotracheal anesthesia was provided. ASSISTANTS: SPECIMENS: PROCEDURES PERFORMED: Endobronchial ultrasound bronchoscopy with transbronchial needle aspiration of right hilar mass and bronchoscopy with washings and brushings. BILINGUAL TEACHER AIDE: None. DESCRIPTION OF PROCEDURE: After the patient was adequately sedated and intubated, the flexible digital bronchoscope with endobronchial ultrasound bronchoscopy (EBUS) was introduced via the ET tube to the level of main michael. Vocal cords appeared normal. Using the ultrasound guidance, the right hilar mass like density was appreciated, measuring in width at least 3 cm in size. Using the ultrasound guidance, transbronchial needle aspirations were collected and given to the pathologist on site and she was able to confirm that indeed there were some atypical cells, difficult to give additional information at this time. No evidence of any lymphoid tissue on this mass. Seven passes were done, collected, and given to cytology and also placing cell block because it did not have any lymphocyte tissue, flow cytometry was not done. The bronchoscope was then removed and replaced with regular bronchoscopy. The bronchoscope was then navigated via the ET tube to level of the main michael. Tracheobronchial tree was extended up to the segmental level. No evidence of any endobronchial disease. The patient did have some frothy secretions which were suctioned. No evidence of any active bleeding at the end of the procedure. Bronchial washings were collected, sent for Gram stain culture and cytology and also a cytologic brush was also introduced from the right upper lobe and sent to the appropriate location. The bronchoscope was then removed. The total endoscopic time approximately 45 minutes. The patient tolerated the procedure well. Vital signs were stable and chest x-ray postprocedure without any evidence of any complications, just the suprahilar mass like opacity noted. Dutch Rm MD MR/MARY / [id number]
== END 2024-09-03 13:36 | disposition home or self-care (01) ==
PROVIDERS: Visit Provider Hospitalist
PROC: (CPT 31652; principal; 2024-09-03 11:00)
DX: C34.31 Malignant neoplasm of lower lobe, right bronchus or lung (principal); I10 Essential (primary) hypertension; Z87.891 Personal history of nicotine dependence
CPT/HCPCS: 31652; 31623; 71045; 87070; 87205; 88112; 88172; 88173; 88177; 88305; 88341; 88342; J0171; J2003; J2250; J2704; J3010

== ENCOUNTER → 2024-09-03 09:21 | Outpatient (BNV) | payer OTHER, SELFPAY | PROVIDERS: Visit Provider Hospitalist | DX: R91.8 Other nonspecific abnormal finding of lung field (principal) | CPT/HCPCS: 31623; 31652 ==

== ENCOUNTER → 2024-09-03 13:09 | Outpatient (BNV) | payer OTHER, SELFPAY | PROVIDERS: Visit Provider Radiology Diagnostic Radiology | DX: R91.8 Other nonspecific abnormal finding of lung field (principal) | CPT/HCPCS: 71045 ==

== ENCOUNTER → 2024-09-11 10:00 | Outpatient (BNV) | payer OTHER, SELFPAY | PROVIDERS: PCP Nurse Practitioner Primary Care; Referring Provider Hospitalist; Visit Provider Internal Medicine | DX: C34.90 Malignant neoplasm of unspecified part of unspecified bronchus or lung (principal) | CPT/HCPCS: 99205 ==

== ENCOUNTER 2024-09-15 07:51 | Outpatient (REF) | payer OTHER, SELFPAY ==
--- NOTE | ~2024-09-15 | PE_ITS ---
CLINICAL HISTORY: R91.8 - Other nonspecific abnormal finding of lung field WHOLE-BODY PET/CT Comparison: CT/SR - CT ANGIO CHEST PE PROTOCOL - 08/17/24 21:44 EDT Technique: For the purposes of this examination, noncontrast CT was performed from skull base to mid thigh level followed by PET imaging utilizing 17.1 mCi F-18 FDG intravenously. Patient's fasting glucose level at the time of scanning was 113 mg/dL. Patient circulation time was 75 minutes. Findings: Neck: No hypermetabolic mass or lymphadenopathy. Chest: Mediastinal blood pool uptake with maximum SUV = 2.28. Limited assessment of lesions size in the right hilum and perihilar regions on noncontrast CT. There is heterogeneous peripheral uptake involving the right hilar cystic lesion with maximum SUV = 3.66. There is right perihilar uptake with maximum SUV = 4.27. No hypermetabolic mediastinal lymphadenopathy. No hypermetabolic pulmonary mass or nodule. No hypermetabolic pleural abnormality. No significant pericardial effusion. Normal caliber aorta. Small hiatal hernia. Abdomen/pelvis: Background liver uptake with maximum SUV = 2.98. No hypermetabolic solid organ, irina region or peritoneal lesion. The gallbladder is partly contracted. The prostate is not enlarged. Physiologic uptake in the GI and tracts with no obstructive or acute inflammatory changes. Diverticulosis coli. Musculoskeletal: No hypermetabolic lytic or blastic lesion. Impression: 1. Findings are suggestive of a partly necrotic right hilar mass and/or irina conglomeration with a small hypermetabolic perihilar lymph node. 2. No hypermetabolic pulmonary lesion. 3. No hypermetabolic metastatic disease in the neck, below the diaphragm or in the osseous structures. This document has been electronically signed by: Gina Estrada DO on 09/16/2024 16:55:04
--- OUTSIDE RECORDS SUMMARY | 2024-09-15 07:55 | XMS_ITS | Clinical Summary ---
Author Organization [facility] it Address [address] [place] [address] Care Team Providers Care Health And Wellness Instructor Name Role Phone Unavailable Primary Care Provider [...]
== END 2024-09-15 07:52 | disposition home or self-care (01) ==
LOC: HO.PET 07:51
PROVIDERS: Visit Provider Hospitalist
DX: Z13.89 Encounter for screening for other disorder (principal)

== ENCOUNTER → 2024-09-18 12:45 | Outpatient (BNV) | payer OTHER, SELFPAY | PROVIDERS: Visit Provider Radiology Diagnostic Radiology | DX: C34.90 Malignant neoplasm of unspecified part of unspecified bronchus or lung (principal) | CPT/HCPCS: 70553 ==

== ENCOUNTER 2024-09-18 12:50 | Outpatient (REF) | payer OTHER, SELFPAY ==
--- NOTE | ~2024-09-18 | MR_ITS ---
EXAMINATION: MR BRAIN WITHOUT AND WITH CONTRAST CLINICAL INFORMATION: Staging lung cancer. COMPARISON: None available. TECHNIQUE: Multiplanar, multisequence MRI of the brain was obtained before and after the intravenous administration of 9 mL gadolinium based (Gadavist) without reported immediate complications.. FINDINGS: No enhancing lesion and or mass in the intra-axial or extra-axial compartment of the cranium. No restricted diffusion. No acute intracranial hemorrhage, mass effect, midline shift, hydrocephalus or herniation. Mabry-white matter differentiation is normal. Posterior cranial fossa contents demonstrated no signal abnormality or enhancing lesion. Sellar/suprasellar region demonstrated a small, 3 mm focal nonenhancing signal within the pituitary gland. Craniocervical junction demonstrates normal position of the cerebellar tonsils. Flow-void signal within the main cerebral vessels is normal. No abnormal enhancement within the bony calvarium. Limited evaluation of the orbits. MR/MR head/brain wo/w con IMPRESSION: No metastatic disease. No acute brain abnormality. Questionable 3 mm pituitary microadenoma. Electronically signed by: Paulino Mehta MD 09/18/2024 03:02 PM EDT
--- OUTSIDE RECORDS SUMMARY | 2024-09-18 12:53 | XMS_ITS | Clinical Summary ---
Author Organization [facility] it Address [address] [place] [address] Care Team Providers Care Director Of Agriculture Name Role Phone Unavailable Primary Care Provider [...]
[2024-09-18] MEDS: gadobutroL 10 ML VIAL IVPUSH (13:50)
== END 2024-09-18 12:51 | disposition home or self-care (01) ==
LOC: HO.MRI 12:50
PROVIDERS: Visit Provider Internal Medicine
DX: C34.90 Malignant neoplasm of unspecified part of unspecified bronchus or lung (principal)
CPT/HCPCS: 70553; A9585

== ENCOUNTER 2024-09-23 07:29 | Outpatient (REF) | payer OTHER, SELFPAY ==
--- NOTE | 2024-09-23 07:31 | PFT_ITS ---
Indication: Lung cancer Spirometry [FEV1 to FVC 68%; FEV1 2.56 L; FVC 3.73L. No significant response to bronchodilators noted.] Lung Volumes [Total lung capacity 85% predicted; residual volume 101% predicted] Comparisons [none] Interpretation [There is an obstructive ventilatory defect consistent with moderate COPD. The trend response to bronchodilators noted. Lung volumes are within normal limits and diffusing capacity also within normal limits. Based on the PFTs the patient is able to undergo a complete pneumonectomy if required for a curative intent.] MTDD
[2024-09-23 08:03] VITALS: PULSE 75; O2SAT 98
== END 2024-09-23 07:30 | disposition home or self-care (01) ==
LOC: HO.RESP 07:29
PROVIDERS: Visit Provider Hospitalist
DX: C34.90 Malignant neoplasm of unspecified part of unspecified bronchus or lung (principal)
CPT/HCPCS: 94010; 94640; 94727; 94729

== ENCOUNTER → 2024-09-23 07:31 | Outpatient (BNV) | payer OTHER, SELFPAY | PROVIDERS: Visit Provider Hospitalist | DX: J44.9 Chronic obstructive pulmonary disease, unspecified (principal) | CPT/HCPCS: 94060; 94727; 94729 ==

== ENCOUNTER 2024-09-25 09:26 | Day surgery (SDC) | payer OTHER, SELFPAY ==
--- OUTSIDE RECORDS SUMMARY | 2024-09-14 13:29 | XMS_ITS | Clinical Summary ---
Author Organization [facility] it Address [address] [place] [address] Care Team Providers Care Floor Coverer Name Role Phone Unavailable Primary Care Provider [...]
[2024-09-25] VITALS (12 sets, daily range): BP systolic 106–142; BP diastolic 66–88; PULSE 62–71; RESP 10–20; TEMP 36.3–37.1; O2SAT 98–100; BMI 29.5
--- NOTE | ~2024-09-25 | IR_ITS ---
CLINICAL HISTORY: Right lung cancer. The patient presents to interventional radiology for placement of a port for chemotherapy. PROCEDURES: 1. Real-time ultrasound-guided access into the left internal jugular vein after documentation of selected vessel patency, and permanent image storing in the patient records. 2. Placement of a 6.6 R[place] single-lumen power port. CLINICIAN: Lobito Lau PA-C MEDICATIONS: - Versed 2 mg, Fentanyl 100 mcg, Lidocaine 1% 10 mL SQ -Antibiotics: Ancef 2g -For additional details, please see nursing flowsheet. Complications: None. Estimated blood loss: <5 ml Specimens: None. Contrast: None. Fluoroscopy time: 1.1 min MODERATE SEDATION TIME: 35 min PROCEDURE NOTE: The procedure, risks, benefits, and alternatives were carefully explained to the patient and written informed consent was obtained. The patient was placed supine on the fluoroscopy table. A timeout was performed. The left neck and chest was prepped and draped in usual sterile fashion. Maximum barrier technique was utilized. Local anesthesia was administered to the access site with 1% lidocaine. Under ultrasound guidance, the left internal jugular vein was accessed with a 5 fr micropuncture set. A 0.035 in wire was advanced into the IVC. A peel-away sheath was advanced over the wire and into the SVC, and the wire was removed. Next, subcutaneous lidocaine was administered to the chest. The port pocket was created after the skin incision, utilizing blunt dissection. Using blunt dissection, a subcutaneous tunnel was created that connects from the port pocket to the venotomy site. Through the peel-away sheath, the 6.6 R[place]an port catheter was placed. The catheter position was verified with fluoroscopy to be at the superior vena cava/right atrial junction. The port was connected to the catheter and was placed in the pocket. The venotomy site was closed with a 3-0 Vicryl subcutaneous suture. The port incision site was closed with interrupted 3-0 Vicryl subcutaneous sutures and surgical glue. Prior to closing the skin, 1 g of Ancef solution was placed in the pocket. The port was tested, flushed, and packed with heparin per routine protocol. The patient tolerated the procedure well. The patient was stable after the procedure and was transferred to the PACU. The procedure was performed under moderate sedation and with a dedicated nurse with continuous monitoring of vital signs. A permanent image of the ultrasound the neck and fluoroscopic image of the chest was saved and sent to PACS. FINDINGS: 1. Patent left internal jugular vein 2. Placement of a 6.6 [place] single lumen power port. 3. Port flushes and aspirates very well with a 10 mL syringe. No pneumothorax. IR/IR cvc insert tunnel w prt/mortgage loan assistant IMPRESSION: Placement of a 6.6 [place] single-lumen power port. PLAN: - The patient will be discharged home when stable by sedation protocol. - Port may be used immediately. This procedure was performed by Lobito Lau PA-C, and directly supervised by Dr. Fuller Electronically signed by: Alex Fuller MD 09/29/2024 08:06 AM EDT
--- NOTE | 2024-09-25 10:33 | MHC.SHP ---
Pre-Procedural Eval Section A - 24 Hr Update-Section A only Date of Service: 09/25/24 Section B - Complete if H&P > 30 days Chief Complaint: MALIGNANT NEOPLASM OF LUNG Details of Present Illness: 54 y/o man with Right lung cancer and poor iv access Relevant Social History: Tobacco Use (quit 8 yr ago) Present Medications: see Short Stay Collaborative assessment Medical History: Significant History History of Previous Operations: No relevant previous surgery Allergies: Allergies Allergy/AdvReac Type Severity Reaction Status Date / Time No Known Allergies Allergy Verified 09/24/24 08:48 Review of Systems Sugical H&P ROS: Negative: Constitution, Cardiovascular and Respiratory Exam Surgical H&P Exam: Normal: Heart, Normal: Lungs, Normal: Skin and Normal: Neurological Plan 54 y/o man with right lung cancer and poor iv access -Left port Time Spent With Patient Time: Total time managing care of this patient today ____ minutes.
[2024-09-25] MEDS: ceFAZolin Sodium/Dextrose,Iso 2 GM/50 ML PIGGYBACK IV (10:57)
[2024-09-25] MEDS: Acetaminophen 1,000 MG/100 ML PIGGYBACK 400 MG IV (11:05)
[2024-09-25] MEDS: Midazolam HCl 2 MG/2 ML VIAL 0.5 MG IVPUSH ×4 (11:23→11:43)
[2024-09-25] MEDS: fentaNYL citrate/PF 100 MCG/2 ML VIAL 50 MCG IVPUSH ×2 (11:23→11:43)
[2024-09-25] MEDS: fentaNYL citrate/PF 100 MCG/2 ML VIAL 25 MCG IVPUSH (11:30)
== END 2024-09-25 12:40 | disposition home or self-care (01) ==
PROVIDERS: Physician Assistant Surgical; Visit Provider Internal Medicine
DX: Z45.2 Encounter for adjustment and management of vascular access device (principal); C34.91 Malignant neoplasm of unspecified part of right bronchus or lung; I10 Essential (primary) hypertension; Z79.899 Other long term (current) drug therapy; Z87.891 Personal history of nicotine dependence
CPT/HCPCS: 36561; 99152; 99153; J0131; J0690; J1642; J1644; J2003; J2250; J3010

== ENCOUNTER → 2024-09-25 10:16 | Outpatient (BNV) | payer OTHER, SELFPAY | PROVIDERS: Visit Provider Physician Assistant Surgical | DX: C34.91 Malignant neoplasm of unspecified part of right bronchus or lung (principal); Z45.2 Encounter for adjustment and management of vascular access device | CPT/HCPCS: 36561; 76937; 77001; 99152 ==

== ENCOUNTER 2024-12-04 14:16 | Outpatient (REF) | payer OTHER, SELFPAY ==
--- NOTE | ~2024-12-04 | CT_ITS ---
CLINICAL HISTORY: Assess response to chemo CT chest with contrast Comparison: CT chest 08/17/2024. PET-CT report 09/15/2024 Findings: Right hilar mass measures 2.4 x 2.0 cm, previously 5.5 x 4.6 cm The heart is normal size. The visualized thyroid and mediastinum are otherwise unremarkable. No consolidation or effusion. The visualized upper abdomen is unremarkable. No acute fractures. IMPRESSION: 1. Findings suggesting positive response to therapy. This document has been electronically signed by: Alan Wallis MD on 12/07/2024 08:53:54
--- OUTSIDE RECORDS SUMMARY | 2024-12-04 14:18 | XMS_ITS | Clinical Summary ---
Author Organization [facility] [address] [facility] Address [address] [place] [address] Phone Care Team Providers Care Top Icer Name Role Phone Unavailable Primary Care Provider Unavailabl e Allergies No known active allergies Medications dexAMETHasone (DECADRON) 4 mg tablet Take 1 tablet (4 mg total) by mouth 2 (two) times a day. 5 Active folic acid (FOLVITE) 1 mg tablet Take 1 tablet (1 mg total) by mouth 1 (one) time each day. 5 Active ondansetron ODT (ZOFRAN-ODT) 8 mg disintegrating tablet 1 tablet (8 mg total) every 8 (eight) hours if needed. 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 (CMS/HCC V24, CMS/HCC V28) 10/12/2024 Encounters Date Type Department Care Team Description 10/12/2024 2:30 PM EDT Consult Thoracic Surgery - [address] [address] Bertha Garza MD Primary cancer of right upper lobe of lung (CMS/HCC V24, CMS/[facility] V28) (Primary Dx) from Last 3 Months Social History Tobacco Use Types Packs/Day Years Used Date Smoking Tobacco: Never Assessed Sex and Gender Information Value Date Recorded Sex Assigned at Not on file Legal Sex Male 4:57 PM EST Gender Identity Not on file Sexual Orientation Not on file Last Filed Vital Signs Vital Sign Reading Time Taken Comments Blood Pressure 120/82 10/12/2024 2:26 PM EDT Pulse 78 10/12/2024 2:26 PM EDT Temperature 36.5 C (97.7 F) 10/12/2024 2:26 PM EDT Respiratory Rate - - Oxygen Saturation 98% 10/12/2024 2:26 PM EDT Inhaled Oxygen Concentration - - Weight 92.9 kg (204 lb 12.8 oz) 10/12/2024 2:26 PM EDT Height 177.8 cm (5' 10 ) 10/12/2024 2:26 PM EDT Body Mass Index 29.39 10/12/2024 2:26 PM EDT Plan of Treatment Health Maintenance Due Date Last Done Comments Hepatitis B Vaccines (1 of 3 - 19+ 3-dose series) 1988 Pneumococcal Vaccine: 50+ Years (1 of 2 - PCV) 1988 Zoster Vaccines (1 of 2) 1988 Depression Screening 04/29/2024 COVID-19 Vaccine (4 - Moderna risk ) 06/23/2024 12/22/2023, 11/14/2020, 10/17/2020 Cholesterol Screening (Lipid Panel) 09/30/2024 Colorectal Cancer Screening: Colonoscopy 09/30/2024 HIV Screening 09/30/2024 Hepatitis C Screening 09/30/2024 Social Influencers of Health Screening 09/30/2024 Influenza Vaccine (#1) 2024 , 01/09/2023, 05/29/2018, Additional history exists DTaP,Tdap,and Td Vaccines (3 - Td or Tdap) 08/28/2034 08/28/2024, 06/15/2014 HIB Vaccines Aged Out No longer eligi [...] to complete this topic RSV Immunization Patients Under 20 months Aged Out No longer eligible based on patient's age to complete this topic Varicella Vaccines Aged Out No longer eligible based on patient's age to complete this topic Insurance [facility]
[2024-12-04] MEDS: iohexoL 350 MG/ML 100 ML INFUS..BTL 65 ML IV (15:59)
== END 2024-12-04 14:17 | disposition home or self-care (01) ==
LOC: HO.CT 14:16
PROVIDERS: PCP Nurse Practitioner Primary Care; Visit Provider Internal Medicine
DX: C34.90 Malignant neoplasm of unspecified part of unspecified bronchus or lung (principal)
CPT/HCPCS: 71260; Q9967

== ENCOUNTER → 2024-12-04 14:17 | Outpatient (BNV) | payer OTHER, SELFPAY | PROVIDERS: PCP Nurse Practitioner Primary Care; Visit Provider Specialist | DX: C34.90 Malignant neoplasm of unspecified part of unspecified bronchus or lung (principal) | CPT/HCPCS: 71260 ==

== ENCOUNTER 2025-01-20 08:37 | Outpatient (AMB) | payer OTHER, SELFPAY ==
--- OUTSIDE RECORDS SUMMARY | 2025-01-19 14:30 | XMS_ITS | Encounter Summary ---
Author Organization [facility] Address [address] [place] [address] Care Team Providers Care Electrical Superintendent Name Role Phone DeannaMilagros healy Primary Care Provider +1- [phone] Reason for Visit * Reason Comments Post-op Lung Surgery S/p 12/30/24 RUL Lobe ctomy Encounter Details Date Type Department Care Team ([facility] st Contact Info) Description 01/19/2025 2:30 PM EDT Office Visit Thoracic Surgery - [place] [address] [facility] [address] [place] [phone] Kennedy Cunningham PA [address] [address] Social History Tobacco Use Types Packs/Day Years Used Date Smoking Tobacco: Former Cigarettes S tarted: 1985 Smokeless Tobacco: Never Alcohol Use Standard Drinks/Week Comments Not Currently 0 (1 standard drink = 0.6 oz pur e alcohol) Interpersonal Safety Answer Date Record ed Physical Abuse 12/31/2024 Verbal Abuse 12/31/2024 Sex and Gender Information Value Date Recorded Sex Assigned at Male 12/21/2024 4:06 PM EDT Legal Sex Male 4:57 PM EST Gender Identity Not on file Sexual Orientation Not on file documented as of this encounter Last Filed Vital Signs Vital Sign Reading Time Taken Comments Blood Pressure 129/86 01/19/2025 2:21 PM EDT Pulse 84 01/19/2025 2:21 PM EDT Temperature 36.8 C (98.2 F) 01/19/2025 2:21 PM EDT Respiratory Rate 14 01/19/2025 2:21 PM EDT Oxygen Saturation 97% 01/19/2025 2:21 PM EDT Inhaled Oxygen Concentration - - Weight 102 kg (223 lb 12.8 oz) 01/19/2025 2:21 P M EDT Height 177.8 cm (5' 10 ) 01/19/2025 2:21 PM EDT Body Mass Index 32.11 01/19/2025 2:21 PM EDT documented in this encounter Ordered Prescriptions Prescription Sig Dispense Quantity Refills Last Filled Start Date End Date oxyCODONE (OXY-IR) 5 mg immediate release capsule Take 1 capsule (5 mg total) by mouth every 6 (six) hours if needed for moderate pain for up to 7 days. Take 2 tablets every 6 hrs as needed for severe pain Max Daily Amount: 20 mg 28 capsule 01/19/2025 documented in this encounter Plan of Treatment Not on file documented as of this encounter Visit Diagnoses Not on filedocumented in this encounter Discontinued Medications Medication Sig Discontinue Reason Start Date End Da te oxyCODONE (ROXICODONE) 5 mg immediate release tablet Take 1 tablet (5 mg total) by mouth every 6 (six) hours if needed (take 1 tablet (5mg) for moderate pain (4-6), or 2 tablets (10mg) for severe pain (7-10)). Max Daily Amount: 20 mg 01/04/2025 01/19/2025 documented as of this encounter Care Teams Electrical Superintendent Relationship Specialty Start Date End Date Milagros Mejia [address] [place] [phone] PCP - General Family Medicine 12/14/24 documented as of this encounter
[2025-01-20 08:48] VITALS: BP 118/70; PULSE 82; O2SAT 98; BMI 32.9
--- NOTE | 2025-01-20 08:48 | MHC.OFFVIS ---
Vital Signs 01/20/25 08:48 Height 5 ft 9 in Weight 222 lb 10.67 oz BMI 32.9 BP 118/70 Blood Pressure Location Lt brachial Position Sitting Pulse 82 Pulse Source Pulse Oximeter Pulse Oximetry (%) 98 Oxygen Delivery Method Room Air Intake Visit Reasons: Lung CA Operations Research Manager Required: No Accompanied by: Self / Same As Patient Allergies No Known Allergies Allergy (Verified 01/20/25 08:51) HPI Comments Details: The patient is a 54-year-old gentleman found to have an abnormal hilar masslike density CAT scan. Apparently the patient was in his usual state health until back around [facility] when he started developing sudden onset chest discomfort. It was severe in nature. He has never had anything like this before. He was taken to the [facility] ED for further evaluation. He had blood work. He had a slight elevation in the white count. Viral testing was negative. He did undergo a CTA to rule out blood clots. No evidence of any thromboembolic disease. Although he appeared to have a masslike density. Based on the Hounsfield units seems to be more like fluid filled although is not 100% it looks irregular hilar and is pressing on the right upper airway airway causing some narrowing and also of the bronchus intermedius. The areas large which is involved. No other involvement in the lungs. We did personally review the images together. The patient does not have any previous imaging to compare. We did talk about the options. One option would be to do an endobronchial ultrasound with transbronchial needle aspirations which I believe will be the best option to see what this density is all about. CAT scans are not so good at looking at fluid densities was hard to know if is necrotic mass or if is actually fluid filled. In addition to that a PET scan would be reasonable. Although would not differentiate so much from an infectious versus malignant process. The patient is agreeable to undergoing the endobronchial ultrasound bronchoscopy. In view of the size in the concerns will go ahead and plan for the procedure next week. The patient is aware he is going to be NPO after midnight and he does not take any blood thinners or any GLP inhibitors. 01/20/2025 the patient is here for a pulmonary sick visit. He has been having worsening shortness of breath after his lobectomy. The patient did tolerate the chemo and radiation in the ultimately responded very well and tolerated the right upper lobe lobectomy. Unfortunately because of the nature of the disease he had to have an open procedure. He recovered well and he was doing well. But the last several days he has been having worsening shortness of breath. He did have a CTA I believe at [facility] and also a chest x-ray. They did an ultrasound demonstrating some amount of fluid but not enough to consider thoracentesis. He has been short of breath even with minimal activity moderate severity. We did go for a walking oximetry in the office and he did desaturate down to about 91% briefly the most part did not qualify for oxygen. The patient has heart rate was indeed elevated 115 beats per minute. Chest x-ray demonstrated a moderate-size pleural effusion. Appears to be larger than his previous x-ray last week. This could be resulting in worsening shortness of breath. However, more concerning is the blood work demonstrated a D-dimer of 3411 which is significantly elevated and concerning. The patient is high risk for thromboembolic disease. Will go ahead and request a urgent stat CT scan at this time to rule out PE. [facility] Medical History (Updated 01/20/25 @ 12:41 by Dutch Rm MD) Dyspnea Lung cancer Hilar mass HTN (hypertension) Social History Household Members: Spouse and Family Are you a primary care support representative to a significant other at home: No Do you presently have visiting nurse or other home services: No Alcohol intake: current Alcohol intake frequency: a few times a week Alcohol type: beer Patient Tobacco Use Status: Former Tobacco user Tobacco use type: Cigarette Second Hand Smoke Exposure: No service: No Current occupational status: employed Review of Systems Const Denies chills, Denies daytime sleepiness, Denies fatigue, Denies fever(s), Denies poor appetite, Denies snoring, Denies stops breathing during sleep, Denies weakness and Reports weight loss Eyes Denies loss of vision ENT Denies dizziness and Denies hearing loss Card Denies chest pain, Denies irregular heart rhythm, Denies claudication, Denies leg edema, Denies lightheadedness, Denies palpitations, Reports dyspnea, Reports dyspnea on exertion and Denies orthopnea Resp Denies cough, Denies excessive phlegm production, Reports dyspnea, Reports dyspnea on exertion, Denies snoring and Denies wheezing GI Denies abdominal pain, Denies hematochezia, Denies change in bowel habits, Denies nausea and Denies vomiting Denies dysuria and Denies urinary frequency Musc Denies arthralgias, Denies muscle weakness, Denies numbness and Denies other Skin/Breast Denies nail changes and Denies rash Neuro Denies Abnormal speech present, Denies dizziness, Denies loss of vision, Denies memory loss, Denies numbness and Denies weakness Psych Denies depression and Denies memory loss Endo Denies fatigue and Denies palpitations Lester/Lymph Denies easy bruising Aller/Immun Denies wheezing Physical Exam Vital Signs: Last Vital Signs Pulse 82 01/20/25 08:48 BP 118/70 01/20/25 08:48 Pulse Ox 98 01/20/25 08:48 Oxygen Delivery Method Room Air 01/20/25 08:48 BMI result Body Mass Index 32.9 Const General: comfortable HEENT Head: Yes normocephalic Neck Neck: Yes no lymphadenopathy and Yes supple Chest Chest palpation & inspection: normal inspection of the chest Breast/axilla inspection: normal inspection of the axillae Resp Effort & Inspection: normal respiratory effort Auscultation: breath sounds absent and diminished lung sounds Percussion: dullness Mid: right and Lower: right Cardio Rate: regular rate Heart sounds: S1 normal heart sound present and S2 normal heart sound present GI Palpation (GI): Soft to palpation Skin General skin exam: no rashes or lesions noted Neuro Speech: No Abnormal speech present Extrem General: Yes no clubbing, cyanosis or edema Assessment & Plan Assessment & Plan (1) Dyspnea: Code(s): R06.00 - Dyspnea, unspecified Category: Medical Qualifiers: Dyspnea type: shortness of breath Qualified Code(s): R06.02 - Shortness of breath (2) Lung cancer: Code(s): C34.90 - Malignant neoplasm of unspecified part of unspecified bronchus or lung Category: Medical Qualifiers: Laterality: right Lung location: upper lobe of lung Qualified Code(s): C34.11 - Malignant neoplasm of upper lobe, right bronchus or lung (3) Blood D-dimer assay positive: Code(s): R78.89 - Finding of other specified substances, not normally found in blood Category: Medical Plan CTA stat Consider Thoracenetesis, we will d/w Thoracic surgery labs+critically high ddimer Orders: Orders XR chest 2V Today R06.00 - Dyspnea, unspecified Erythrocyte Sedimentation Rate Today R06.00 - Dyspnea, unspecified D Dimer High Sensitivity Today R06.00 - Dyspnea, unspecified Complete Blood Count Auto Diff Today R06.00 - Dyspnea, unspecified Basic Metabolic Panel Today R06.00 - Dyspnea, unspecified Coding Level of Care Code Est Pt Level 5 (50062) Diagnoses Shortness of breath R06.02 Dyspnea type: shortness of breath Malignant neoplasm of upper lobe of right lung C34.11 Laterality: right Lung location: upper lobe of lung Blood D-dimer assay positive R78.89 Time Spent (min) 60
--- OUTSIDE RECORDS SUMMARY | 2025-01-20 09:41 | XMS_ITS | Clinical Summary ---
Author Organization [facility] Address [address] [facility] [address] [place], [place] [phone] Phone Care Team Providers Care Child Development Professor Name Role Phone Milagros Mejia ORACLE APPLICATIONS ANALYST Primary Care Provider Self-Referred, Patient Unavailable Unavailab le Social History Tobacco Use Types Packs/Day Years Used Date Smoking Tobacco: Never Assessed Education Answer Date Recorded Are you interested in more education? Not on agnieszka e 08/25/2022 Are you concerned about learning? Not on file 08/25/2022 No 08/25/2022 No 08/25/2022 Digital Access Answer Date Recorded No 09/25/2022 No 09/25/2022 Reliable internet access at home? Not on file 09/25/2022 Device with a working camera? Not on file Sex and Gender Information Value Date Recorded Sex Assigned at Male 11/03/2024 2:55 PM EDT Legal Sex Male 1:09 PM EDT Gender Identity Male 11/03/2024 2:55 PM EDT Sexual Orientation Straight 11/03/2024 2: 55 PM EDT Plan of Treatment Not on file Medical Devices Not on file Insurance [facility] Care Teams Child Development Professor Relationship Specialty Start Date End Date Milagros Mejia NP [address] [place] [address] PCP - General Nurse Practitioner 11/03/24 Self-Referred, Patient 11/03/24 Additional Source Comments The information contained in this document represents components of the legal health record. It is not the complete legal health record.[facility]
--- OUTSIDE RECORDS SUMMARY | 2025-01-20 09:41 | XMS_ITS | Clinical Summary ---
Author Organization [facility] [address] [facility] Address [address] [place] [address] Phone Care Team Providers Care Publishing Editor Name Role Phone EmytaylormarielaMilagros Nathan Primary Care Provider [phone] Allergies No known active allergies Medications folic acid (FOLVITE) 1 mg tablet Take 1 tablet (1 mg total) by mouth 1 (one) time each day. 09/30/19 25 Active ondansetron ODT (ZOFRAN-ODT) 8 mg disintegrating tablet 1 tablet (8 mg total) every 8 (eight) hours if needed. 10/01/19 25 Active tadalafiL (CIALIS) 20 mg tablet Take 1 tablet (20 mg total) by mouth 1 (one) time each day if needed for erectile dysfunction . 12/04/19 25 Active amoxicillin-clavu lanate XR (Augmentin XR) 1,000-62.5 mg per 12 hr tablet Take 1 tablet by mouth 2 (two) times a day for 7 days. 14 each 01/14/20 25 025 Active oxyCODONE (OXY-IR) 5 mg immediate release capsule Take 1 capsule (5 mg total) by mouth every 6 (six) hours if needed for moderate pain for up to 7 days. Take 2 tablets every 6 hrs as needed for severe pain Max Daily Amount: 20 mg 28 capsule 01/20/20 25 025 Active predniSONE (DELTASONE) 20 mg tablet Take 1 tablet (20 mg total) by mouth 1 (one) time each day. 12/22/19 25 025 Discontinued(S top Taking at Discharge) oxyCODONE (ROXICODONE) 5 mg immediate release tablet Take 1 tablet (5 mg total) by mouth every 6 (six) hours if needed (take 1 tablet (5mg) for moderate pain (4-6), or 2 tablets (10mg) for severe pain (7-10)). Max Daily Amount: 20 mg 40 tablet 01/05/20 25 025 Discontinued amoxicillin-clavu lanate XR (Augmentin XR) 1,000-62.5 mg per 12 hr tablet Take 1 tablet by mouth 2 (two) times a day for 7 days. 14 each 01/13/20 25 025 Discontinued amoxicillin-clavu lanate XR (Augmentin XR) 1,000-62.5 mg per 12 hr tablet Take 1 tablet by mouth 2 (two) times a day for 7 days. 14 each 01/14/20 25 025 Discontinued Active Problems Problem Noted Date Diagnosed Date Primary cancer of right uppe r lobe of lung (CMS/[facility] V24, CMS/[facility] V28) 10/12/2024 Assessment & Plan (01/13/2025 12:15 PM EDT): Mr. Boo is a 54 y.o. male who was found several months back to have a hilar mass measuring 5.5 cm encroaching on the main pulmonary artery. This was biopsy- proven lung cancer and he did receive neoadjuvant chemotherapy and immunotherapy with Keytruda. Repeat CT scan of the chest with IV contrast did show quite remarkable response with the tumor now measuring 2.5 cm. On December 30, 2024, patient underwent a robotic converted to thoracotomy right upper lobectomy, mediastinal lymphadenectomy, bronchoscopy with aspiration, with intercostal paravertebral nerve blocks. 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 pN1 (pT cannont be determined based on pathology results). Patient presented to the office today for increased shortness of breath at rest, which he says started overnight. He denies chest pain or palpitations. He has been able to speak full sentences while in office. Vitals WNL. Stat CTA chest ordered to rule out PE as an outpatient. He was instructed he would be called with results. Chest xray prior to today's visit shows stable results with right pleural effusion. Pathology was discussed at length at the time of his visit. His case was reviewed at the tumor board meeting 01/11/25 and decision was made for routine surveillance screening and for him to continue following up with Dr. Gamez from [facility]. His next chest CT surveillance screening will be due in June 2025. He will follow up with [facility]OM[facility] following that scan to review results and perform physical exam. He does appear to have a superficial skin infection around his surgical incisions, a prescription for Augmentin will be called into his pharmacy. Patient will follow up in 1 week to re-evaluate his incisions and recheck a chest xray at that time. Addendum CTA chest showing no pulmonary embolisms or any other acute findings. Patient encouraged to continue to monitor his symptoms and to continue use of the incentive spirometry. He will call the office if his symptoms of shortness of breath worsen or he will seek emergent care. He has an outpatient follow up next week Saturday01/19/25. Patient is instructed to call the office with any questions or concerns. Encounters Date Type Department Care Team Description 01/19/2025 2:30 PM EDT Office Visit Thoracic Surgery - [address] [phone] Kennedy Cunningham PA 01/12/2025 2:17 PM EDT - 01/12/2025 11:59 PM EDT Hospital Encounter [facility] CT Scan [address] [place] [phone] Primary cancer of right upper lobe of lung (CMS/HCC V24, CMS/HCC V28) Discharge Disposition: Home or Self Care 01/12/2025 1:30 PM EDT Consult Pulmonology - [address] [phone] Amina Cuevas MD Shortness of breath (Primary Dx); Abnormal chest x-ray; Primary adenocarcinoma of right lung (CMS/HCC V24, CMS/HCC V28) 01/12/2025 1:00 PM EDT Office Visit Thoracic Surgery - [address] [phone] Brianna Barrett, [place] Primary cancer of right upper lobe of lung (CMS/HCC V24, CMS/HCC V28) 01/12/2025 12:26 PM EDT - 01/12/2025 11:59 PM EDT Hospital Encounter [facility] Xray [address] [place] [phone] Primary cancer of right upper lobe of lung ([facility] V24, [facility] V28) Discharge Disposition: Home or Self Care 01/12/2025 Telephone Thoracic Surgery - [place] [address] [phone] Ynes Armendariz RN 12/30/2024 8:34 AM EDT Anesthesia Event [facility] Main OR [address] [place] [phone] Chapito Woodward MD Walsh, Michael, DO 12/30/2024 8:30 AM EDT - 12/30/2024 1:30 PM EDT Surgery [facility] Main OR [address] [place] [phone] Bertha Garza MD Davjoseph XI converted to thoracotomy right upper lobectomy, Davvanii XI mediastinal lymphadenectomy, cryo nerve block [24948 (CPT ) +3 more] 12/30/2024 7:02 AM EDT - 01/04/2025 11:53 AM EDT Hospital Encounter [facility] Intermediate Care Unit B [address] [place] [phone] Bertha Garza MD Surendran, Anupama, MD Mohani, Priya, MD Bell, Alistair A, MD Primary cancer of right upper lobe of lung ([facility] [place], [facility] V28) Discharge Disposition: Home or Self Care 12/15/2024 Telephone Thoracic Surgery - [address] [phone] Daniela Rodriguez MA 12/14/2024 11:30 AM EDT Office Visit Thoracic Surgery [address] [phone] Bertha Garza MD Primary cancer of right upper lobe of lung ([facility] V24, [facility] V28) (Primary Dx) 12/10/2024 Telephone Thoracic Surgery - [address] [place] [address] Shantel Costello MA from Last 3 Months Surgical History Surgery Date Site/Laterality Comments BRONCHOSCOPY LUNG LOBECTOMY 12/30/2024 Right RUL Medical History Medical History Date Comments Lung cancer (CMS/HCC V24, CMS/HCC V28) RUL Family History Medical History Relation Name Comments Heart attack Mother Relation Name Status Comments Mother Social History Tobacco Use Types Packs/Day Years Used Date Smoking Tobacco: Former Cigarettes S tarted: 1985 Smokeless Tobacco: Never Tobacco Cessation:Counseling Given: Not Answered Alcohol Use Standard Drinks/Week Comments Not Currently 0 (1 standard drink = 0.6 oz pur e alcohol) Interpersonal Safety Answer Date Record ed Physical Abuse 12/31/2024 Verbal Abuse 12/31/2024 Sex and Gender Information Value Date Recorded Sex Assigned at Male 12/21/2024 4:06 PM EDT Legal Sex Male 4:57 PM EST Gender Identity Not on file Sexual Orientation Not on file Obstetrics History Last Filed Vital Signs Vital Sign Reading [...] Mass Index 32.11 01/19/2025 2:21 PM EDT Plan of Treatment Health Maintenance Due Date Last Done Comments Hepatitis B Vaccines (1 of 3 - 19+ 3-dose series) 1988 Pneumococcal Vaccine: 50+ Years (1 of 2 - PCV) 1988 Zoster Vaccines (1 of 2) 1988 Depression Screening 04/29/2024 Cholesterol Screening (Lipid Panel) 09/30/2024 Colorectal Cancer Screening: Colonoscopy 09/30/2024 HIV Screening 09/30/2024 Hepatitis C Screening 09/30/2024 Social Influencers of Health Screening 09/30/2024 COVID-19 Vaccine (4 - Moderna risk season) 2024 12/22/2023, 11/14/2020, 10/17/2020 Influenza Vaccine (#1) 2024 , 01/09/2023, 05/29/2018, Additional history exists DTaP,Tdap,and Td Vaccines (3 - Td or Tdap) 08/28/2034 08/28/2024, 06/15/2014 RSV Immunization Adult Patients (1 - 1-dose 75+ series) 2044 HIB Vaccines Aged Out No longer eligi [...] on patient's age to complete this topic Medical Devices Implanted Type Area Paper Bags Sewing Machine Operator Device Identifier Shelf Expiration Date Model / Serial / Lot Central/Perip heral Catheters And Ports Central/Peripher al Catheters and Ports Left: Chest Wall Hemostat Absorb Surgicel Nu-Knit 3x4in - Sn/A - [id number] Implanted:Qty : 1 on 12/30/2024 by Bertha Garza MD at [facility] Hemostasis Right: Chest [employer] [id number] 04/28/2029 [id number] / N/A / [id number] Sealant Fibrin Vistaseal 10ml - [id number] - [id number] Implanted:Qty : 1 on 12/30/2024 by Bertha Garza MD at [facility] Hemostasis Right: Chest [employer] [id number] 06/09/2026 [facility] / [id number] / [id number] Sealant Progel Air Pleural 4ml - Sn/A - [id number] Implanted:Qty : 1 on 12/30/2024 by Bertha Garza MD at [facility] [employer] Right: Chest CR BARD - DAVOL DIV [id number] 01/27/2026 [id number] / N/A / [id number] Procedures Procedure Name Priority Date/Time Associated Diagnosis Comments CT ANGIO CHEST WO AND/OR W CONTRAST STAT 01/12/2025 2:49 PM EDT Primary cancer of right upper lobe of lung (CMS/HCC V24, CMS/HCC V28) XR CHEST 2 VIEWS Routine 01/12/2025 12:3 3 PM EDT Primary cancer of right upper lobe of lung (CMS/HCC V24, CMS/HCC V28) XR CHEST 1 VIEW Routine 01/04/2025 6:12 AM EDT COMPLETE BLOOD COUNT Timed 01/04/2025 5:41 AM EDT PEP THERAPY Routine 01/03/2025 8:00 AM EDT XR CHEST 1 VIEW Routine 01/03/2025 5:34 AM EDT PEP THERAPY Routine 01/02/2025 10:00 PM EDT PEP THERAPY Routine 01/02/2025 6:00 PM EDT PEP THERAPY Routine 01/02/2025 1:00 PM EDT PEP THERAPY Routine 01/02/2025 8:00 AM EDT XR CHEST 1 VIEW Routine 01/02/2025 5:35 AM EDT PEP THERAPY Routine 01/01/2025 10:00 PM EDT PEP THERAPY Routine 01/01/2025 6:00 PM EDT PEP THERAPY Routine 01/01/2025 1:01 PM EDT PEP THERAPY Routine 01/01/2025 8:02 AM EDT COMPLETE BLOOD COUNT Timed 01/01/2025 6:45 AM EDT BASIC METABOLIC PANEL Routine 01/01/2025 6:45 AM EDT XR CHEST 1 VIEW Routine 01/01/2025 5:20 AM EDT PEP THERAPY Routine 12/31/2024 10:00 PM EDT PEP THERAPY Routine 12/31/2024 6:00 PM EDT PEP THERAPY Routine 12/31/2024 1:01 PM EDT PEP THERAPY Routine 12/31/2024 8:02 AM EDT XR CHEST 1 VIEW Routine 12/31/2024 5:50 AM EDT MAGNESIUM Routine 12/31/2024 5:47 AM EDT PHOSPHORUS Routine 12/31/2024 5:47 AM EDT BASIC METABOLIC PANEL Routine 12/31/2024 5:47 AM EDT COMPLETE BLOOD COUNT Routine 12/31/2024 5:47 AM EDT PEP THERAPY Routine 12/30/2024 10:00 PM EDT MAGNESIUM STAT 12/30/2024 8:19 PM EDT PHOSPHORUS STAT 12/30/2024 8:19 PM EDT BASIC METABOLIC PANEL STAT 12/30/2024 8:19 PM EDT COMPLETE BLOOD COUNT STAT 12/30/2024 8:19 PM EDT XR CHEST 1 VIEW STAT 12/30/2024 8:14 PM EDT PEP THERAPY Routine 12/30/2024 7:57 PM EDT PEP THERAPY Routine 12/30/2024 7:57 PM EDT PEP THERAPY Routine 12/30/2024 7:57 PM EDT PEP THERAPY Routine 12/30/2024 7:57 PM EDT OXYGEN THERAPY, ADULT Routine 12/30/2024 5:41 PM EDT OXYGEN THERAPY, ADULT Routine 12/30/2024 5:41 PM EDT POCT ARTERIAL BLOOD GAS, LA Routine 12/30/2024 3:59 PM EDT TISSUE EXAM Routine 12/30/2024 9:38 AM EDT Primary cancer of right upper lobe of lung (CMS/HCC V24, CMS/HCC V28) ANESTHESIA PERIPHERAL IV PLACEMENT Routine 12/30/2024 9:24 AM EDT TH AN ENDOTRACHEAL(NO CHARGE) Routine 12/30/2024 9:23 AM EDT TH AN ARTERIAL LINE (CHARGE) Routine 12/30/2024 9:03 AM EDT ME THORACOSCOPY SURGICAL WITH REMOVAL OF LUNG 12/30/2024 8:33 AM EDT Primary cancer of right upper lobe of lung (CMS/HCC V24, CMS/HCC V28) Case Notes [employer],INPT ME REM LUNG OTH THAN PNEUMONECTOMY W CIRC RESEC SEGM BRONCHUS F/B ANAST 12/30/2024 8:33 AM EDT Primary cancer of right upper lobe of lung (CMS/HCC V24, CMS/HCC V28) Case Notes [employer],INPT ME REMOVAL OF LUNG OTHER THAN PNEUMONECTOMY SINGLE LOBE 12/30/2024 8:33 AM EDT Primary cancer of right upper lobe of lung (CMS/HCC V24, CMS/HCC V28) Case Notes [employer],INPT ME THORACOSCOPY SURGICAL WITH LOBECTOMY 12/30/2024 8:33 AM EDT Primary cancer of right upper lobe of lung (CMS/HCC V24, CMS/HCC V28) Case Notes [employer],INPT PREPARE RBC Routine 12/30/2024 7:43 AM EDT PROCEDURAL ECG Routine 12/24/2024 11:03 AM EDT Primary cancer of right upper lobe of lung (CMS/HCC V24, CMS/HCC V28) CBC WITH AUTO DIFFERENTIAL Routine 12/24/2024 10:54 AM EDT Primary cancer of right upper lobe of lung (CMS/HCC V24, CMS/HCC V28) BASIC METABOLIC PANEL Routine 12/24/2024 10:54 AM EDT Primary cancer of right upper lobe of lung (CMS/HCC V24, CMS/HCC V28) CBC AND DIFFERENTIAL Routine 12/24/2024 10:54 AM EDT Primary cancer of right upper lobe of lung (CMS/HCC V24, CMS/HCC V28) PROTHROMBIN TIME WITH INR Routine 12/24/2024 10:54 AM EDT Primary cancer of right upper lobe of lung (CMS/HCC V24, CMS/HCC V28) ACTIVATED PARTIAL THROMBOPLASTIN TIME Routine 12/24/2024 10:54 AM EDT Primary cancer of right upper lobe of lung (CMS/HCC V24, CMS/HCC V28) TYPE AND SCREEN Routine 12/24/2024 10:54 AM EDT Primary cancer of right upper lobe of lung (CMS/HCC V24, CMS/HCC V28) from Last 3 Months Results * CT Angio Chest wo and/or w Contrast (01/12/2025 2:49 PM EDT) Anatomical Region Laterality Modality Body Computed Tomogra phy 01/12/2025 3:39 PM EDT Impressions 01/12/2025 3:45 PM EDT No pulmonary arterial emboli. Right upper lobectomy with small loculated right hydropneumothorax. Groundglass opacities and septal thickening in the right lower lobe inferiorly, possibly mild pulmonary edema. Infection is considered less likely. Acute, mildly displaced right lateral 5th rib fracture with right 6th rib thoracotomy. -------- FINAL REPORT -------- Dictated By: JEANCARLOS MERCEDES Dictated Date: 01/12/2025 15:39 ET Assigned Physician: JEANCARLOS MERCEDES Reviewed and Electronically Signed By: JEANCARLOS MERCEDES Signed Date: 01/12/2025 15:45 ET Workstation ID: [id number] Transcribed By: Self Edit Transcribed Date: 01/12/2025 15:39 ET Narrative 01/12/2025 3:45 PM EDT PROCEDURE: Chest CT 8 INDICATION: Upper lobectomy, pulmonary embolism, TECHNIQUE: Chest CTA with intravenous administration of 90cc ISOVUE 370. Multi planar reformats were created and interpreted. The examination was performed utilizing dose reduction techniques.3-D or MIP images were produced with postprocessing on an independent computer workstation. Total DLP 887 COMPARISON: 12/04/2024 and 01/12/2025 radiograph FINDINGS: LUNGS/PLEURA: Central airways are patent. Small loculated right hydropneumothorax. Right upper lobectomy with fluid and scarring along the resection margin. Groundglass opacity in the periphery of the right lower lobe with septal thickening. Left lung is clear. CTA: No pulmonary arterial emboli. Thoracic aorta is normal in size. No dissection. Moderate coronary calcifications. Exam was not tailored to evaluate the coronary arteries. MEDIASTINUM: Thyroid gland is within normal limits. No mediastinal or hilar lymphadenopathy. Esophagus is within normal limits. Cardiac chambers are normal in size. No pericardial effusion. CHEST WALL: Left chest wall Port-A-Cath terminating near the cavoatrial junction. No axillary adenopathy. UPPER ABDOMEN:The visualized portions of the upper abdomen are unremarkable. BONES: Acute, mildly displaced right lateral 5th rib fracture with thoracotomy at the right 6th rib. No suspicious lytic or blastic lesions. Procedure Note Jeancarlos Mercedes MD - 01/12/2025 PROCEDURE: Chest CT 8 INDICATION: Upper lobectomy, pulmonary embolism, TECHNIQUE: Chest CTA with intravenous administration of 90cc ISOVUE 370.Multi planar reformats were created and interpreted. The examination wasperformed utilizing dose reduction techniques.3-D or MIP images wereproduced with postprocessing on an independent computer workstation.Total DLP 887 COMPARISON: 12/04/2024 and 01/12/2025 radiograph FINDINGS: LUNGS/PLEURA: Central airways are patent. Small loculated righthydropneumothorax. Right upper lobectomy with fluid and scarring alongthe resection margin. Groundglass opacity in the periphery of the rightlower lobe with septal thickening. Left lung is clear. CTA: No pulmonary arterial emboli. Thoracic aorta is normal in size. Nodissection. Moderate coronary calcifications. Exam was not tailored toevaluate the coronary arteries. MEDIASTINUM: Thyroid gland is within normal limits. No mediastinal orhilar lymphadenopathy. Esophagus is within normal limits. Cardiacchambers are normal in size. No pericardial effusion. CHEST WALL: Left chest wall Port-A-Cath terminating near the cavoatrialjunction. No axillary adenopathy. UPPER ABDOMEN:The visualized portions of the upper abdomen areunremarkable. BONES: Acute, mildly displaced right lateral 5th rib fracture withthoracotomy at the right 6th rib. No suspicious lytic or blasticlesions. IMPRESSION: No pulmonary arterial emboli. Right upper lobectomy with small loculated right hydropneumothorax. Groundglass opacities and septal thickening in the right lower lobeinferiorly, possibly mild pulmonary edema. Infection is considered lesslikely. Acute, mildly displaced right lateral 5th rib fracture with right 6th ribthoracotomy. -------- FINAL REPORT -------- Dictated By: JEANCARLOS MERCEDES Dictated Date: 01/12/2025 15:39 ET Assigned Physician: JEANCARLOS MERCEDES Reviewed and Electronically Signed By: JEANCARLOS MERCEDES Signed Date: 01/12/2025 15:45 ET Workstation ID: [id number] Transcribed By: Self Edit Transcribed Date: 01/12/2025 15:39 ET Brianna Barrett NP IMG CT PROCEDURES Final Res ult * XR Chest 2 Views (01/12/2025 12:33 PM EDT) Anatomical Region Laterality Modality Body Radiographic Maria ging 01/13/2025 4:24 PM EDT Impressions 01/13/2025 4:27 PM EDT Impression: 1. Small right apical loculated hydropneumothorax status post right chest tube removal. 2. At least small right pleural effusion of the right base. 3. Port-A-Cath well-positioned. Telerad PA ([id number]) -------- FINAL REPORT -------- Dictated By: Mona Son Dictated Date: 01/13/2025 16:24 ET Assigned Physician: Mona Son Reviewed and Electronically Signed By: Mona Son Signed Date: 01/13/2025 16:27 ET Workstation ID: [id number] Transcribed By: Self Edit Transcribed Date: 01/13/2025 16:24 ET Narrative 01/13/2025 4:27 PM EDT History: Worsening dyspnea. Right upper lobectomy on 12/30/24. Comparison: 01/04/25 Findings: PA and lateral views of the chest. Postop changes are again seen in the right hemithorax, with volume loss, consistent with recent partial lung resection. The large bore thoracostomy tube noted on the previous exam is no longer seen. A small loculated hydropneumothorax is seen at the right apex. The right costophrenic angles are blunted, consistent with an at least small pleural effusion. The left lung is clear in the left costophrenic angles are sharp. The cardiac silhouette remains normal in size. A left Port-A-Cath terminates at the level of the SVC, unchanged. Procedure Note Mona oSn MD - 01/13/2025 History: Worsening dyspnea. Right upper lobectomy on 12/30/24. Comparison: 01/04/25 Findings: PA and lateral views of the chest. Postop changes are again seen in theright hemithorax, with volume loss, consistent with recent partial lungresection. The large bore thoracostomy tube noted on the previous exam isno longer seen. A small loculated hydropneumothorax is seen at the rightapex. The right costophrenic angles are blunted, consistent with an atleast small pleural effusion. The left lung is clear in the left costophrenic angles are sharp. The cardiac silhouette remains normal in size. A left Pppx-J-Fnjtzijompttoo at the level of the SVC, unchanged. IMPRESSION: Impression: 1. Small right apical loculated hydropneumothorax status post right chesttube removal. 2. At least small right pleural effusion of the right base. 3. Port-A-Cath well-positioned. Telerad NEYDA ([id number]) -------- FINAL REPORT -------- Dictated By: Mona Son Dictated Date: 01/13/2025 16:24 ET Assigned Physician: Mona Son Reviewed and Electronically Signed By: Mona Son Signed Date: 01/13/2025 16:27 ET Workstation ID: [id number] Transcribed By: Self Edit Transcribed Date: 01/13/2025 16:24 ET Kennedy FAYE IMG XR PROCEDURES Final Result * XR Chest 1 View (01/04/2025 6:12 AM EDT) Only the most recent of6 resultswithin the time period is included. Anatomical Region Laterality Modality Body Radiographic Maria ging 01/04/2025 8:34 AM EDT Impressions 01/04/2025 8:41 AM EDT FINDINGS/IMPRESSION: Right chest tube remains in place. Left Port-A-Cath is unchanged. Volume loss in the right lung with small right apical pneumothorax, similar compared to prior. Left lung is clear. Cardiac silhouette and bones are stable. -------- FINAL REPORT -------- Dictated By: JEANCARLOS MERCEDES Dictated Date: 01/04/2025 08:34 ET Assigned Physician: JEANCARLOS MERCEDES Reviewed and Electronically Signed By: JEANCARLOS MERCEDES Signed Date: 01/04/2025 08:41 ET Workstation ID: [id number] Transcribed By: Self Edit Transcribed Date: 01/04/2025 08:34 ET Narrative 01/04/2025 8:41 AM EDT XR CHEST 1 VIEW INDICATION: Pain TECHNIQUE: XR CHEST 1 VIEW COMPARISON: 01/03/2025 Procedure Note Jeancarlos Mercedes MD - 01/04/2025 XR CHEST 1 VIEW INDICATION: Pain TECHNIQUE: XR CHEST 1 VIEW COMPARISON: 01/03/2025 IMPRESSION: FINDINGS/IMPRESSION: Right chest tube remains in place. Left Yegr-G-Djweif unchanged. Volume loss in the right lung with small right apicalpneumothorax, similar compared to prior. Left lung is clear. Cardiacsilhouette and bones are stable. -------- FINAL REPORT -------- Dictated By: JEANCARLOS MERCEDES Dictated Date: 01/04/2025 08:34 ET Assigned Physician: JEANCARLOS MERCEDES Reviewed and Electronically Signed By: JEANCARLOS MERCEDES Signed Date: 01/04/2025 08:41 ET Workstation ID: [id number] Transcribed By: Self Edit Transcribed Date: 01/04/2025 08:34 ET Taylor FAYE IMG XR PROCEDURES Final Resul t * (ABNORMAL) CBC - Every 3 Days (01/04/2025 5:41 AM EDT) Only the most recent of4 resultswithin the time period is included. WBC 17.1(H) 4.8 - 10.8 K/mcL LAB [facility] RBC 2.70(L) 4.50 - 5.50 M/mcL LAB HEMETOLOGY METHOD 01/04/2025 6:48 AM [facility] Hemoglobin 8.1(L) 13.5 - 17.5 g/dL LAB HEMETOLOGY METHOD 01/04/2025 6:48 AM [facility] Hematocrit 24.9(L) 42.0 - 54.0 % LAB [facility]OLOGY METHOD [facility] MCV 92.9 79.0 - 98.0 FL LAB H[facility]OLOGY METHOD [facility] MCH 30.2 27.0 - 32.0 pcg LAB HEMETOLOGY METHOD 01/04/2025 6:48 AM [facility] MCHC 32.5 32.0 - 37.0 g/dL LAB HEMETOLOGY METHOD 01/04/2025 6:48 AM [facility] RDW 13.7 11.0 - 15.0 % LAB HEMETOLOGY METHOD 01/04/2025 6:48 AM EDT [facility] Platelets 295 130 - 400 K/mcL LAB HEMETOLOGY METHOD 01/04/2025 6:48 AM EDT [facility] MPV 9.9 7.0 - 11.0 FL LAB HEMETOLOGY METHOD 01/04/2025 6:48 AM EDT [facility] NRBC 0.0 <1.0 % LAB HEMETOLOGY METHOD 01/04/2025 6:48 AM EDT [facility] NRBC Absolute 0.00 <0.10 K/mcL [facility] 01/04/2025 6:48 AM [facility] Blood Blood sample taken from central line / Unknown Venipuncture / Unknown 01/04/2025 5:41 AM EDT 01/04/2025 6:22 AM EDT us Kennedy FAYE LAB BLOOD ORDERABLES Fin al Result [facility] [address] [place] [address], * (ABNORMAL) Basic metabolic panel (01/01/2025 6:45 AM EDT) Only the most recent of4 resultswithin the time period is included. Sodium 136 133 - 145 mmol/L LAB CHEMISTRY METHOD 01/01/2025 7:42 AM T [facility] Potassium 4.3 3.5 - 5.5 mmol/L LAB CHEMISTRY METHOD 01/01/2025 7:42 AM [facility] Chloride 102 96 - 110 mmol/L LAB CHEMISTRY METHOD 01/01/2025 7:42 AM [facility] CO2 29 21 - 32 mmol/L LAB CHEMISTRY METHOD 01/01/2025 7:42 AM EDT [facility] Anion Gap 5 3 - 11 LAB CHEMISTRY METHOD 01/01/2025 7:42 AM EDT [facility] Glucose 126(H) 70 - 100 mg/dL LAB CHEMISTRY METHOD 01/01/2025 7:42 AM EDT [facility] BUN 28(H) 5 - 25 mg/dL LAB CHEMISTRY METHOD 01/01/2025 7:42 AM EDT [facility] Creatinine 1.03 0.70 - 1.30 mg/dL LAB CHEMISTRY METHOD 01/01/2025 7:42 AM EDT [facility] eGFR 86 >=60 mL/min/1. 73m2 LAB CHEMISTRY METHOD 01/01/2025 7:42 AM EDT [facility] Comment:Calculation based on the Chronic Kidney Disease Epidemiology Collaboration (CKD-EPI) equation refit without adjustment for race. BUN/Creatinine Ratio 27.2 LAB CHEMISTRY METHOD 01/01/2025 7:42 AM EDT [facility] Calcium 9.2 8.5 - 10.5 mg/dL LAB CHEMISTRY METHOD 01/01/2025 7:[facility] Blood Venous blood specimen / Unknown Venipuncture / Unknown 01/01/2025 6:45 AM EDT 01/01/2025 7:22 AM EDT Michelle Parker MD LAB BLOOD ORDERABLES Final Result [facility] [address] [place] [address], * Phosphorus (12/31/2024 5:47 AM EDT) Only the most recent of2 resultswithin the time period is included. Phosphorus 3.9 2.5 - 4.5 mg/dL LAB CHEMISTRY METHOD 12/31/2024 7:17 AM EDT [facility] Blood Venous blood specimen / Unknown Venipuncture / Unknown 12/31/2024 5:47 AM EDT 12/31/2024 6:10 AM EDT us Brianna Barrett [employer] LAB BLOOD ORDERABLES Final Result [facility] [address] [place] [address], [place] [phone] * Magnesium (12/31/2024 5:47 AM EDT) Only the most recent of2 resultswithin the time period is included. Pathologist [facility] Magnesium 1.9 1.9 - 2.6 mg/dL LAB CHEMISTRY METHOD 12/31/2024 7:17 AM EDT [facility] Comment:Hemolysis present Blood Venous blood specimen / Unknown Venipuncture / Unknown 12/31/2024 5:47 AM EDT 12/31/2024 6:10 AM EDT us Brianna Barrett NP LAB BLOOD ORDERABLES Final Result Performing Organization Address City/[facility]/ZIP Co de Phone Number [facility] [address] [place] [address], [place] [phone] * (ABNORMAL) POCT Arterial blood gas, LA (12/30/2024 3:59 PM EDT) pH Arterial POCT 7.36 7.35 - 7.45 12/31/2024 6:55 AM EDT [facility] pO2 Arterial POCT 126(H) 80 - 100 mmHg 12/31/2024 6:55 AM EDT [facility] pCO2 Arterial POCT 40.1 35 - 45 mmHg 12/31/2024 6:55 AM EDT [facility] SO2 Arterial POCT 99(H) 95 - 98 % 12/31/2024 6:55 AM EDT [facility] TCO2 Arterial POCT 24 21 - 32 mmol/L 12/31/2024 6:55 AM EDT [facility] HCO3 Arterial POCT 22.8 22.0 - 26.0 mmol/L 12/31/2024 6:55 AM EDT [facility] Base Excess Arterial POCT -2 -2 - 2 mmol/L 12/31/2024 6:55 AM EDT [facility] Lactate Arterial POCT 1.96 0.9 - 2 mmol/L 12/31/2024 6:55 AM EDT [facility] Blood Arterial blood specimen / Unknown 12/30/2024 3:59 PM EDT 12/31/2024 6:56 AM EDT Michelle Parker MD LAB POINT OF CARE T EST DOCKED DEVICE UNSOLICITED RESULTS Final Result [facility] [address] [place] [address], * Tissue exam (12/30/2024 9:38 AM EDT) Final Diagnosis A. Mediastinum, righ t level 9: -BENIGN LYMPH NODE B. Mediastinum, right sump: -BENIGN LYMPH NODE C. Mediastinum, right level 10: -BENIGN LYMPH NODE D. Mediastinum, R4: -BENIGN LYMPH NODE E. Mediastinum, right level 10 #2: -BENIGN LYMPH NODE F. Right, 6th rib: -TWO SEGMENTS OF BENIGN RIB G. 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 4:23 PM EDT [facility] Synoptic Checklist LUNG LUNG - All Specimens AJCC 9 - Protocol posted: 04/08/2024 SPECIMEN Procedure: Lobectomy Specimen Laterality: Right TUMOR Tumor Focality: Single focus Tumor Site: Upper lobe of lung Tumor Size: Invasive Tumor Size: Cannot be determined: post treatment, Residual tumor present only in hilar lymph nodes Total Tumor Size: Cannot be determined: post treatment, Residual tumor present only in hilar lymph nodes Histologic Type: No viable tumor present: status post chemotherapy and immunotherapy Spread Through Air Spaces (VALENTÍN): Not applicable: Residual tumor present only in hilar lymph nodes Visceral Pleura Invasion: Cannot be determined: post treatment. Residual tumor present only in hilar lymph nodes Direct Invasion of Other Structures: Not applicable (no other structures present) Treatment Effect: Present Percentage of Residual Viable Tumor: Zero. Residual tumor present only in hilar lymph nodes % Percentage of Necrosis: 80 % Percentage of Stroma (includes fibrosis and inflammation): 20 % Inflammation: Moderate Lymphatic and / or Vascular Invasion: Not identified Tumor Comment: Residual tumor present only in hilar lymph nodes MARGINS Margin Status for Invasive Tumor: All margins negative for invasive tumor Closest Margin(s) to Invasive Tumor: Bronchial Closest Margin(s) to Invasive Tumor: Vascular Distance from Invasive Tumor to Closest Margin: At least: 0.4 cm Margin Status for Non-Invasive Tumor: Not applicable REGIONAL LYMPH NODES Lymph Node(s) from Prior Procedures: No known prior lymph node sampling performed Regional Lymph Node Status: : Tumor present in regional lymph node(s) Number of Lymph Nodes with Tumor: 3 Irina Site(s) with Tumor: 10R: Hilar Number of Lymph Nodes Examined: 13 Irina Site(s) Examined: 4R: Lower paratracheal Irina Site(s) Examined: 9R: Pulmonary ligament Irina Site(s) Examined: 10R: Hilar Irina Site(s) Examined: 11R: Interlobar pTNM CLASSIFICATION (AJCC Version 9) Reporting of pT, pN, and (when applicable) pM categories is based on information available to the pathologist at the time the report is issued. As per the AJCC (Chapter 1, 8th Ed.) it is the managing physician's responsibility to establish the final pathologic stage based upon all pertinent information, including but potentially not limited to this pathology report. Modified Classification: y pT Category: pT not assigned (cannot be determined based on available pathological information) pN Category: pN1 ADDITIONAL FINDINGS Additional Findings: Segments of benign rib (part F) 5 4:23 PM EDT [facility] ([facility]) [facility] Gross Description A. Mediastinum, right level 9: Labeled right lev, mediastinum .Received in formalin, with telfa, is a 1.2 x 0.8 x 0.2 cm mesa-downey irina fragment with attached mesa-yellow adipose tissue. The specimen is bisected and submitted entirely in cassette A1, two pieces. B. Mediastinum, right sump: Labeled right sump,mediastinum . Received in formalin is a 1.3 x 0.6 x 0.2 cm mesa-downey irina fragment. The specimen is submitted in toto in one cassette, one piece. C. Mediastinum, right level 10: Labeled right lev, mediastinum . Received in formalin is a 1.0 x 0.4 x 0.2 cm mesa-downey irina fragment. The specimen is bisected and submitted in entirety in cassette, two pieces. D. Mediastinum, R4: Labeled R4, mediastinum . Received in formalin is a 1.0 x 0.7 x 0.4 cm irina fragment with attached mesa-yellow adipose tissue. The specimen is bisected and submitted in entirety in one cassette, two pieces. E. Mediastinum, right level 10 #2: Labeled right lev, mediastinum . Received in formalin are two mesa-downey irina fragments measuring 0.4 x 0.3 x 0.2 cm and 0.6 x 0.5 x 0.3 cm. The specimens are submitted in toto in one cassette, two pieces. F. Chest, Right, 6th rib: Labeled right 6th, chest R . Received in formalin are two mesa-yellow bone fragments, consistent with rib segments, that have attached mesa-downey soft tissue measuring 2.7 x 1.3 x 0.9 cm and 5.7 x 1.3 x 1.2 cm. The specimen is sectioned revealing a white-red and grossly unremarkable trabeculated cut surface. A medical detail representative section of each are submitted in one cassette, two pieces, following decalcification. G. Lung, Right Upper Lobe, for vascular margin: Labeled for vasc, lung RUL . Received fresh, for frozen section is a 19.7 x 11.3 x 2. 9 cm right lobectomy with an attached 4.7 x 4.4 x 1.4 cm wedge of possible middle lobe with stapled margin (removed and inked shirley). The pleura is intact, dusky and purple-downey. There are staple lines extending from the hilum which measure up to 8.0 cm in length. The staple lines are differentially inked shirley (superior) and teal (inferior). The hilar soft tissue is bulging and attenuated. The cut surfaces of this area show a rubbery, well-circumscribed, lobulated, yellow-downey, 2.7 x 2.5 x 1.5 cm mass. The mass is 1.0 cm to the nearest superior staple line, 1.5 cm to the inferior staple line, abuts the pleura and is 0.4 cm to the bronchovascular margins. The remaining lung parenchyma is spongy, brown-red and grossly unremarkable. No additional masses or lesions are grossly identified. There is a 0.3 cm in greatest diameter soft, mesa-downey, anthracotic hilar lymph node. Intraparenchymal lymph nodes are absent. The pleura in the region of the mass is inked blue. The hilar soft tissue in the region of the mass is inked green. Digital photographs are taken. Glueline Worker sections are submitted in sixteen cassettes, including the entire mass. 1: Frozen section residue, bronchovascular margin, three pieces 2-9: Lesion, in entirety, one piece each 10: Shirley stapled margin, taken perpendicularly, one piece 11: Teal stapled margin, taken perpendicularly, one piece 12: random inferior, two pieces 13: random Mid aspect/hilum, two pieces 14: random superior lung, two pieces 15: sections from attached possible middle lobe, two pieces 16: one whole hilar lymph node, one piece KR 5 4:23 PM T [facility]) [facility] Intraoperative Consultation G. Lung, Right Upper Lobe, for vascular margin: Bronchial and vascular margins negative JS 5 4:23 PM [facility] ([facility]) [facility] Disclaimer The immunohistochemistry stains were medically necessary and performed because the additional information was needed by the pathologist to determine presence of residual neoplasm. The immunohistochemical tests and in situ hybridization tests were developed and their performance characteristics were determined by [facility]. They have not been cleared or approved by the U.S. Food and Drug Administration. The FDA has determined that such clearance or approval is not necessary. These tests are used for clinical purposes. They should not be regarded as investigational or for research. This laboratory is certified under the Clinical Laboratory Improvement Amendments of 1988 (CLIA) as qualified to perform high complexity clinical laboratory testing. (controls appropriate) Unless otherwise specified, all tissue is 10% NB formalin fixed and paraffin embedded. 4:23 PM EDT [facility] Lymph Node Mediastinal structure / Unknown 12/30/2024 9:38 AM EDT 12/31/2024 5:19 AM EDT Lymph node tissue specimen (specimen) Mediastinal structure / Unknown 12/30/2024 9:54 AM EDT 12/31/2024 5:19 AM EDT Lymph node tissue specimen (specimen) Mediastinal structure / Unknown 12/30/2024 10:02 AM EDT 12/31/2024 5:19 AM EDT Lymph node tissue specimen (specimen) Mediastinal structure / Unknown 12/30/2024 10:06 AM EDT 12/31/2024 5:19 AM EDT Lymph node tissue specimen (specimen) Mediastinal structure / Unknown 12/30/2024 10:56 AM EDT 12/31/2024 5:19 AM EDT Specimen from bone (specimen) Right thorax structure / Unknown 12/30/2024 1:00 PM EDT 12/31/2024 5:19 AM EDT Tissue specimen (specimen) Structure of upper lobe of right lung / Unknown 12/30/2024 3:34 PM EDT 12/30/2024 3:47 PM EDT Bertha Garza MD LAB PATHOLOGY ORDERABLES Final R esult [facility]) [facility] [address] [place] [address], * Peripheral IV (12/30/2024 9:24 AM EDT) Narrative Aliosn Strange CRNA - 12/30/2024 9:24 AM EDT Alison Strange CRNA 12/30/2024 9:24 AM Peripheral IV Placement Needle size: 16 G Laterality: left Location: hand Local anesthetic: none Site prep: chlorhexidine Technique: anatomical landmarks Attempts: 1 us Darryl Sarkar MD ANESTHESIA ORDERABLES Final Re sult * TH AN ENDOTRACHEAL(NO CHARGE) (12/30/2024 9:23 AM EDT) Alison Hurt CRNA - 12/30/2024 9:23 AM EDT Alison Strange CRNA 12/30/2024 9:24 AM General Information and Staff Patient location during procedure: OR Performed by: Alison Strange CRNA Authorized by: Darryl Sarkar MD Intubation Airway not difficult Urgency: elective Final Airway Details Successful airway: ETT and ETT - double lumen left Cuffed: yes Successful intubation technique: direct laryngoscopy Facilitating devices/methods: intubating stylet Endotracheal tube insertion site: oral Blade: Anmol Blade size: #4 ETT DL size (fr): 39 Cormack-Lehane Classification: grade I - full view of glottis Placement verified by: chest auscultation and capnometry Number of attempts at approach: 1Final airway type: endotracheal airway Indications and Patient Condition Indications for airway management: anesthesia Spontaneous Ventilation: absent Sedation level: Yes Preoxygenated: yes Soft Tissue Damage: No Dentition Unchanged: Yes Patient position: neutral MILS maintained throughout Mask difficulty assessment: 1 - vent by mask Darryl Sarkar MD ANESTHESIA ORDERABLES Final Re sult * TH AN ARTERIAL LINE (CHARGE) (12/30/2024 9:03 AM EDT) Darryl Jimenez MD - 12/30/2024 9:03 AM EDT Darryl Sarkar MD 12/30/2024 9:06 AM Arterial Line Performed by: Darryl Sarkar MD Authorized by: Darryl Sarkar MD Consent: Verbal consent obtained. Written consent obtained. Risks and benefits: risks, benefits and alternatives were discussed Consent given by: patient Patient understanding: patient states understanding of the procedure being performed Patient consent: the patient's understanding of the procedure matches consent given Procedure consent: procedure consent matches procedure scheduled Relevant documents: relevant documents present and verified Test results: test results available and properly labeled Site marked: the operative site was marked Patient identity confirmed: verbally with patient, arm band and hospital-assigned identification number Time out: Immediately prior to procedure a time out was called to verify the correct patient, procedure, equipment, administrative support specialist and site/side marked as required. Preparation: Patient was prepped and draped in the usual sterile fashion. Indications: hemodynamic monitoring Location: right radial Anesthesia: local infiltration Anesthesia: Local Anesthetic: lidocaine 2% without epinephrine Sedation: Patient sedated: yes Sedation type: anxiolysis Sedatives: midazolam Analgesia: fentanyl Sedation start date/time: 12/30/2024 8:07 AM Sedation end date/time: 12/30/2024 8:16 AM Needle gauge: 20 Number of attempts: 1 Post-procedure: dressing applied Post-procedure CMS: normal Start Time: 12/30/2024 8:07 AMStop Time: 12/30/2024 8:16 AM Medications Administered fentaNYL (SUBLIMAZE) injection 50 mcg/mL - intravenous 100 mcg - 12/30/2024 8:07:00 AM midazolam (VERSED) injection 1 mg/mL - intravenous 2 mg - 12/30/2024 8:07:00 AM Staffing Anesthesiologist: Darryl Sarkar MD Darryl Sarkar MD ANESTHESIA ORDERABLES Final Re sult * Prepare RBC: 2 Units, Leukoreduced (12/30/2024 7:43 AM EDT) Product Code [id number] 12/30[facility]2024 6:[facility] Number [id number] 12/31/19 6:16 PM [facility] Crossmatch Compatible 12/30/2024 8:39 AM [facility] Dispense Status Released From Crossmatch 12/30/2024 6:16 PM [facility] Unit ABO Rh APOS 12/30/2024 6:16 PM [facility] Unit Expiration Date Time [id number] 12/30/2024 6:16 PM [facility] Unit Blood Type 6200 12/30/2024 6:16 PM [facility] Product Code [id number] 12/30/2024 6:15 PM EDT [facility] Unit Number [id number] 12/31/19 6:15 PM EDT [facility] Crossmatch Compatible 12/30/2024 8:39 AM EDT [facility] Dispense Status Released From Crossmatch 12/30/2024 6:15 PM EDT [facility] Unit ABO Rh APOS 12/30/2024 6:15 PM EDT [facility] Unit Expiration Date Time [id number] 12/30/2024 6:15 PM EDT [facility] Unit Blood Type 6200 12/30/2024 6:15 PM EDT [facility] Blood Venous blood specimen / Unknown 12/30/2024 7:43 AM EDT 12/24/2024 11:40 AM EDT us Bertha Garza MD BLOOD BANK PRODUCT ORDERABLES Fi nal Result [facility] [address] [place] [address], * ECG 12 lead - Procedural (No Charge) (12/24/2024 11:03 AM EDT) Ventricular Rate ECG 69 BPM GEMUSE Atrial Rate 69 BPM GEMUSE P-R Interval 132 ms GEMUSE QRS Duration 70 ms GEMUSE Q-T Interval 382 ms GEMUSE QTc 409 ms GEMUSE P Wave Iuka 40 degrees GEMUSE R Iuka -8 degrees GEMUSE T [place] 8 degrees GEMUSE ECG Interpretation Normal sinus rhythm Normal ECG When compared with ECG of 17-AUG-2021 19:32, No significant change was found Confirmed by Marcial BEAVER YUFENG ([id number]) on 12/24/2024 6:39:16 PM GEMUSE 12/24/2024 11:0 3 AM EDT 12/24/2024 6:39 PM EDT us Bertha Garza MD ECG ORDERABLES Final Result [facility] * (ABNORMAL) CBC auto differential (12/24/2024 10:54 AM EDT) [facility] Signature WBC 9.9 4.8 - 10.8 K/mcL LAB HEMETOLOGY METHOD 12/24/2024 11:50 AM EDT [facility] RBC 3.80(L) 4.50 - 5.50 M/mcL LAB HEMETOLOGY METHOD 12/24/2024 11:50 AM EDT [facility] Hemoglobin 11.6(L) 13.5 - 17.5 g/dL LAB HEMETOLOGY METHOD 12/24/2024 11:50 AM [facility] Hematocrit 34.8(L) 42.0 - 54.0 % LAB HEMETOLOGY METHOD 12/24/2024 11:50 [facility] MCV 91.6 79.0 - 98.0 FL LAB HEMETOLOGY METHOD 12/24/2024 11:50 [facility] MCH 30.5 27.0 - 32.0 pcg LAB HEMETOLOGY METHOD 12/24/2024 11:50 AM [facility] MCHC 33.3 32.0 - 37.0 g/dL LAB HEMETOLOGY METHOD 12/24/2024 11:50 AM EDT [facility] RDW 14.1 11.0 - 15.0 % LAB HEMETOLOGY METHOD 12/24/2024 11:50 AM EDT [facility] Platelets 298 130 - 400 K/mcL LAB HEMETOLOGY METHOD 12/24/2024 11:50 [facility] MPV 9.3 7.0 - 11.0 FL LAB HEMETOLOGY METHOD 12/24/2024 11:50 AM [facility] NRBC 0.0 <1.0 % LAB HEMETOLOGY METHOD 12/24/2024 11:50 AM [facility] NRBC Absolute 0.00 <0.10 K/mcL LAB HEMETOLOGY METHOD 12/24/2024 11:50 AM [facility] Neutrophils Relative 91.8 % LAB HEMETOLOGY METHOD 12/24/2024 11:50 AM [facility] Lymphocytes Relative 5.1 % LAB HEMETOLOGY METHOD 12/24/2024 11:50 AM [facility] Monocytes Relative 1.0 % LAB HEMETOLOGY METHOD 12/24/2024 11:50 AM [facility] Eosinophils Relative 0.1 % LAB HEMETOLOGY METHOD 12/24/2024 11:50 AM [facility] Basophils Relative 0.3 % LAB HEMETOLOGY METHOD 12/24/2024 11:50 AM [facility] Immature Granulocytes Relative 1.7 % LAB HEMETOLOGY METHOD 12/24/2024 11:50 AM [facility] Neutrophils Absolute 9.08(H) 1.50 - 7.00 K/mcL LAB HEMETOLOGY METHOD 12/24/2024 11:50 AM [facility] Lymphocytes Absolute 0.50(L) 1.00 - 5.00 K/mcL LAB HEMETOLOGY METHOD 12/24/2024 11:50 AM [facility] Monocytes Absolute 0.10(L) 0.20 - 1.00 K/mcL LAB HEMETOLOGY METHOD 12/24/2024 11:50 AM [facility] Eosinophils Absolute 0.01 0.00 - 0.50 K/mcL LAB HEMETOLOGY METHOD 12/24/2024 11:50 AM [facility] Basophils Absolute 0.03 0.00 - 0.20 K/mcL LAB HEMETOLOGY METHOD 12/24/2024 11:50 AM EDT [facility] Immature Granulocytes Absolute 0.17(H) 0.00 - 0.03 K/mcL LAB HEMETOLOGY METHOD 12/24/2024 11:50 AM EDT [facility] Blood Venous blood specimen / Unknown Venipuncture / Unknown 12/24/2024 10:54 AM EDT 12/24/2024 11:39 AM EDT us Bertha Garza MD LAB BLOOD ORDERABLES Final Resul t Performing Organization Address [facility]/ZIP Co de Phone Number [facility] [address] [place] [address], [place] [phone] * Activated partial thromboplastin time (12/24/2024 10:54 AM EDT) aPTT 30.9 24.1 - 39.3 sec LAB COAGULATION METHOD 12/24/2024 11:56 AM EDT [facility] Blood Venous blood specimen / Unknown Venipuncture / Unknown 12/24/2024 10:54 AM EDT 12/24/2024 11:39 AM EDT us Bertha Garza MD LAB BLOOD ORDERABLES Final Resul t Performing Organization Address City/[facility]/ZIP Co de Phone Number [facility] [address] [place] [address], [place] [phone] * (ABNORMAL) Prothrombin time with INR (12/24/2024 10:54 AM EDT) Protime 9.8(L) 10.6 - 13.9 sec LAB COAGULATION METHOD 12/24/2024 11:56 AM EDT [facility] INR 0.8 LAB COAGULATION METHOD 12/24/2024 11:56 AM EDT [facility] Blood Venous blood specimen / Unknown Venipuncture / Unknown 12/24/2024 10:54 AM EDT 12/24/2024 11:39 AM EDT us Bertha Garza MD LAB BLOOD ORDERABLES Final Resul t Performing Organization Address [facility] Co de Phone Number [facility] [address] [place] [address], [place] [phone] * Type and screen (12/24/2024 10:54 AM EDT) ABO Group A 12/24/2024 12:39 PM EDT [facility] Rh Type Positive 12/24/2024 12:39 PM EDT [facility] Antibody Screen Negative 12/24/2024 12:39 PM EDT [facility] Blood Venous blood specimen / Unknown Venipuncture / Unknown 12/24/2024 10:54 AM EDT 12/24/2024 11:40 AM EDT us Bertha Garza MD LAB BLOOD BANK TEST ORDERABLES F inal Result Performing Organization Address [facility] de Phone Number [facility] [address] [place] [address], [place] [phone] from Last 3 Months Insurance [facility] Advance Directives * Full Code - Default (Latest Code Status on File) Date Activated Date Inactivated Comments 12/30/2024 7:57 PM 01/04/2025 1:53 PM This is order is used when code status has not been discussed with the patient, or code status is otherwise unknown/unconfirmed To update the patient's code status, place a code status order. Do not modify or discontinue any currently active code status orders. * Full Code - Default Date Activated Date Inactivated Comments 12/30/2024 7:23 AM 12/30/2024 7:57 PM This is order is used when code status has not been discussed with the patient, or code status is otherwise unknown/unconfirmed To update the patient's code status, place a code status order. Do not modify or discontinue any currently active code status orders. Care Teams Publishing Editor Relationship Specialty Start Date End Date Milagros Mejia [address] [place] [address] [address] [phone] PCP - General Family Medicine 12/14/24
--- OUTSIDE RECORDS SUMMARY | 2025-01-20 09:41 | XMS_ITS | Encounter Summary ---
Author Organization [facility] Address [address] [facility] [address] [place] [address] Phone Care Team Providers Care Cardiovascular Technician Name Role Phone Anusha Aparicio WELDER GAS Primary Care Provider [phone] Milagros Mejia WELDER GAS Primary Care Provider Self-Referred, Patient Unavailable Unavailab le Encounter Details Date Type Department Care Team (Late st Contact Info) Description 02/03/2021 Procedure Pass [facility] Endoscopy Admitting Dept Virtual Department [address] [place] [phone] Social History Tobacco Use Types Packs/Day Years Used Date Smoking Tobacco: Never Assessed Sex and Gender Information Value Date Recorded Sex Assigned at Male 11/03/2024 2:55 PM EDT Legal Sex Male 1:09 PM EDT Gender Identity Male 11/03/2024 2:55 PM EDT Sexual Orientation Straight 11/03/2024 2: 55 PM EDT documented as of this encounter Plan of Treatment Not on file documented as of this encounter Visit Diagnoses Not on filedocumented in this encounter Care Teams Cardiovascular Technician Relationship Specialty Start Date End Date Anusha Aparicio, WELDER GAS [address] [place] [address] PCP - General Nurse Practitioner 12/02/20 11/02/24 Milagros Mejia NP [address] [place] [address] PCP - General Nurse Practitioner 11/03/24 Self-Referred, Patient 11/03/24 documented as of this encounter Additional Source Comments The information contained in this document represents components of the legal health record. It is not the complete legal health record.[facility]
== END 2025-01-20 10:39 | disposition home or self-care (01) ==
LOC: HO.HPS 08:37
PROVIDERS: PCP Nurse Practitioner Primary Care; Visit Provider Hospitalist
DX: R06.02 Shortness of breath (principal); C34.11 Malignant neoplasm of upper lobe, right bronchus or lung; R78.89 Finding of other specified substances, not normally found in blood
CPT/HCPCS: 99215

== ENCOUNTER 2025-01-20 08:37 | Outpatient (REF) | payer OTHER, SELFPAY ==
--- NOTE | ~2025-01-20 | XR_ITS ---
EXAMINATION: XR CHEST CLINICAL INFORMATION: R06.00 - Dyspnea, unspecified COMPARISON: 09/03/2024. CT chest 12/04/2024. TECHNIQUE: 2 views of the chest were obtained. FINDINGS: Left-sided chest port is in place with tip extending into the cavoatrial region. The cardiac and mediastinal contours are normal. There is stellate opacity in the right hilum, presumably scarring. There has been a partial right lung resection. There is elevated right hemidiaphragm with scarring in the right base and mild diffuse right pleural thickening. The left lung appears clear. There is no pneumothorax or pleural effusion. There is no focal osseous or soft tissue abnormality. XR/XR chest 2V IMPRESSION: 1. Chest port in good position. 2. Post right lung resection with associated volume loss, pleural thickening, and scarring. Scarring in the right hilum. 3. Otherwise, no active disease. Electronically signed by: Facundo Boykin MD 01/20/2025 10:39 AM EDT
--- NOTE | ~2025-01-20 | CT_ITS ---
EXAMINATION: CT ANGIOGRAM CHEST CLINICAL INFORMATION: R78.89 - Finding of other specified substances, not normally found in blood COMPARISON: CT chest December 04, 2024 TECHNIQUE: Multiple axial images were obtained through the chest after the administration of 65 mL of Omnipaque 350 intravenous contrast. Extensive vascular post-processing including two-dimensional and three-dimensional reformatted images were created and reviewed on an independent workstation. This CT examination was performed using dose optimization techniques as appropriate, variously including the following: *Automated exposure control *Adjustment of mA and/or kV according to patient size (this includes techniques or standardized protocols for targeted exams where dose is matched to indication/reason for exam; i.e. extremities or head) *Use of iterative reconstruction technique FINDINGS: QUALITY OF STUDY/CONTRAST BOLUS: Suboptimal with incomplete opacification of tertiary branches. PULMONARY ARTERIES: There is an abrupt decrease in attenuation of contrast attenuation in the pulmonary artery leading to the lingula (axial CT 5 image 61/145) concerning for pulmonary embolus. There is overall generalized narrowing and decreased flow in the pulmonary vessels in the right lung, especially the right upper lung. 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 The vessel is intensely opacified by contrast. The vessel extends along the margin of the right upper lung and mediastinum anteriorly and along the posterior medial right upper lung. THORACIC AORTA: Unremarkable LUNGS AND PLEURA: Small to moderate right pleural effusion has developed since the prior. There is subsegmental atelectasis in the medial anterior and posterior right lung. There has likely been interval lobectomy. There is a small pneumothorax anterosuperiorly and in the posterior right base visible within the pleural effusion. There is a new focal 15 mm opacity in the posterior lateral right lung. MEDIASTINUM: There is severe focal narrowing of the right mainstem bronchus, new since the prior. There is right perihilar bronchial thickening. CORONARY ARTERY CALCIFICATION: None seen. CHEST WALL/AXILLA: No axillary or internal mammary lymphadenopathy. There is an access port over the left upper chest. UPPER ABDOMEN: Unremarkable BONES: There is a fracture of the lateral right fifth rib with periosteal new bone formation consistent with a subacute origin. There has been resection of the lateral right sixth rib. CT/CT angio chest PE protocol IMPRESSION: There is abrupt decreased opacification of a pulmonary artery branch leading to the lingula concerning for pulmonary embolus (axial CT 5 image 61/145). There is severe stenosis of the right mainstem bronchus. The etiology is not clear. There is overall decreased flow from the right pulmonary artery into the right lung, likely a physiologic response to hypoaeration. There are postoperative changes in the right chest related to lobectomy. There is small residual pneumothorax and small to medium sized pleural effusion. Focal 15 mm density in the right lateral lung base is probably related to contusion or focal hemorrhage but other etiologies such as infection, and neoplasm are not ruled out. There is associated resection of the lateral right sixth rib and subacute fracture of the lateral right fifth rib. 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 Fleischner guidelines were followed. Electronically signed by: Caleb Stout MD 01/20/2025 04:11 PM EDT
[2025-01-20 09:43] LABS: MANUAL DIFF FLAG NO
[2025-01-20 11:11] LABS: Hematocrit 29.7 % (42.0-52.0); Hemoglobin 9.6 g/dl (14.0-18.0); Imm Gran Abs Auto 0.04 X10*3/uL (0.00-0.03); Imm Gran Pct Auto 0.5 % (0.0-0.4); Lymphocytes Absolute Auto 1.2 X10*3/uL (1.2-4.9); Mean Corpuscular HGB Conc 32.3 g/dl (31.0-36.0); Mean Corpuscular Hemoglobin 30.5 pg (27.0-33.0); Mean Corpuscular Volume 94.3 fL (80.0-98.0); NRBC Abs Auto 0.000 X10*3/uL (0.0-0.012); NRBC Pct Auto 0.0 /100WBC (0.0-0.2); Platelet Count 523 X10*3/uL (160-400); Red Blood Count 3.15 X10*6/uL (4.60-5.80); White Blood Count 8.8 X10*3/uL (4.8-10.8)
[2025-01-20 11:39] LABS: D Dimer High Sensitivity 3411 NG/ML
[2025-01-20 12:04] LABS: Anion Gap 13 (12-20); Blood Urea Nitrogen 14 mg/dL (9-16); Calcium 10.0 mg/dL (8.4-10.2); Carbon Dioxide 29 mmol/L (22-29); Chloride 105 mmol/L (96-108); Estimated Glomerular Filt Rate > 60; Potassium 4.9 mmol/L (3.3-5.1); Sodium 142 mmol/L (135-145)
[2025-01-20] MEDS: iohexoL 350 MG/ML 100 ML INFUS..BTL IV (15:41)
== END 2025-01-20 08:38 | disposition home or self-care (01) ==
LOC: HO.LAB 08:37
PROVIDERS: PCP Nurse Practitioner Primary Care; Visit Provider Hospitalist
DX: C34.11 Malignant neoplasm of upper lobe, right bronchus or lung (principal); R06.02 Shortness of breath; R78.89 Finding of other specified substances, not normally found in blood; Z87.891 Personal history of nicotine dependence
CPT/HCPCS: 36415; 71046; 71275; 80048; 85025; 85379; 85652

== ENCOUNTER → 2025-01-20 09:41 | Outpatient (BNV) | payer OTHER, SELFPAY | PROVIDERS: PCP Nurse Practitioner Primary Care; Visit Provider Radiology Diagnostic Radiology | DX: I26.99 Other pulmonary embolism without acute cor pulmonale (principal); J98.09 Other diseases of bronchus, not elsewhere classified; R06.00 Dyspnea, unspecified | CPT/HCPCS: 71046; 71275 ==

== ENCOUNTER 2025-01-20 18:43 | Inpatient (IN) | payer OTHER, SELFPAY ==
--- OUTSIDE RECORDS SUMMARY | 2025-01-19 14:30 | XMS_ITS | Encounter Summary ---
Author Organization [facility] Address [address] [place] [address] Care Team Providers Care Qa Lead Name Role Phone DeannaMilagros healy Primary Care Provider [phone]- [phone] Reason for Visit * Reason Comments Post-op Lung Surgery S/p 12/30/24 RUL Lobe ctomy Encounter Details Date Type Department Care Team ([facility] st Contact Info) Description 01/19/2025 2:30 PM EDT Office Visit Thoracic Surgery - [place] [address] [facility] [address] [place] [phone] Kennedy Cunningham PA [address] [address] Infected incision (Primary Dx) Social History Tobacco Use Types Packs/Day Years [...] 28 capsule 01/19/2025 documented in this encounter Progress Notes * NEYDA Brooks - 01/20/2025 3:17 PM EDTAssociated Problem(s): Infected incision 54-year-old male who on December 30, 2024 underwent a robotic converted to thoracotomy right upper lobectomy, mediastinal lymphadenectomy for a lung carcinoma. During his last visit 1 week ago he did have what appeared to be an infected chest wall incision for which a prescription of Augmentin was given and presents today with inspection of his incisions appear noninfectious. He was reminded that he will follow-up with the thoracic surgery department in 6 months time which will be June [address] surveillance scan. documented in this encounter Plan of Treatment Not on file documented as of this encounter Visit Diagnoses Diagnosis Infected incision- Primary documented in this encounter Discontinued Medications Medication Sig [...] documented as of this encounter Care Teams Qa Lead Relationship Specialty Start Date End Date Milagros Mejia [address] [place] [phone] PCP - General Family Medicine 12/14/24 documented as of this encounter
--- NOTE | ~2025-01-20 | US_ITS ---
EXAMINATION: US TRIPLEX LOWER EXTREMITY, BILATERAL CLINICAL INFORMATION: Acute pulmonary artery embolism. COMPARISON: None available. TECHNIQUE: Color-flow triplex imaging with spectral analysis and compression Doppler were performed on the bilateral lower extremities. FINDINGS: Respiratory variation, normal compression and augmented flow are demonstrated throughout the interrogated common femoral vein, superficial femoral vein, profunda femoral vein, popliteal vein and midcalf peroneal and posterior tibial venous segments both lower extremities. There is no Robin's cyst. US/US venous duplex LE BI IMPRESSION: No acute deep venous thrombosis interrogated veins, bilateral lower extremities. Negative for DVT. Electronically signed by: Paulino Mehta MD 01/22/2025 03:44 PM EDT
[2025-01-20 18:45] VITALS: BP 153/85; PULSE 88; RESP 20; TEMP 36.3; O2SAT 99; BMI 32.9
--- NOTE | 2025-01-20 18:45 | ED.GENADULT ---
[facility] - General Adult General Chief complaint: Dyspnea Stated complaint: ? Lung blood clot Time Seen by Provider: 01/20/25 19:39 Source: patient Mode of arrival: ambulatory Limitations: no limitations History of Present Illness ED Provider: Dr. Oliveira [facility] narrative: 54-year-old male history of right lung status post lobectomy earlier this month presented hospital today for evaluation of increased exertional shortness of breath. The patient was sent in by Dr. Rm the pellet preparation operator. He stated he had his surgery done at [facility] with Dr. Carr. Patient stated that he noticed when he walks he has has increased shortness of breath this is abnormal for him. Dr. Rm recommended admission for the patient at this time D-dimer was elevated at 3000. Signs of lingula PE. 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 All other system otherwise negative. [facility] Past Medical History [facility] Narrative: Medical history as mentioned in [facility] Medical History (Updated 01/20/25 @ 21:13 by Lian Oliveira DO) Dyspnea Lung cancer Hilar mass HTN (hypertension) Social History Social History Household Members: Spouse and Family Are you a primary post acute care nurse practitioner to a significant other at home: No Do you presently have visiting nurse or other home services: No Alcohol intake: current Alcohol intake frequency: a few times a week Alcohol type: beer Patient Tobacco Use Status: Former Tobacco user Tobacco use type: Cigarette Second Hand Smoke Exposure: No Advance Directives: No Advance Directives Information Provided: Yes Do you have a plan to hurt others: No Plan service: No Current occupational status: employed Physical Exam ED Exam Exam: General: Pleasant, no distress, interacting appropriately Head: Normacephalic, atraumatic ENT: oral mucosa moist, neck supple, no tracheal deviation Cardiovascular: regular rate, regular rhythm, no murmurs, rubbing, gallops Respiratory: Diminished lung sounds throughout Extremities: No limb pain or swelling, no calf tenderness Neurological: Awake and alert, no facial droop noted Skin: Warm and dry Psychiatric: Appropriate mood and thoughts Vital Signs: Vital Signs - 24 hr 01/20/25 18:45 01/20/25 19:31 Temperature 97.4 F Pulse Rate 88 77 Respiratory Rate 20 18 Blood Pressure 153/85 H 136/92 H Pulse Oximetry 99 98 Oxygen Delivery Method Room Air Room Air BMI result Body Mass Index 32.9 Course Course Course Narrative: This is a rapid medical exam performed by Rubina Gilbert NP: Additional HPI, ROS, PE not included below will be deferred to primary provider. Patient is a 54-year-old male with non-small cell lung CA, saw pulmonology and oncology today, has been been having dyspnea since lobectomy on 12/30. Had labs and outpatient imaging today which revealed PE. Denies current chest pain. O2 95% on room air. Plan: EKG, will defer additional labs to primary provider Medications Administered Generic Name Dose Route Start Last Admin Trade Name Freq PRN Reason Stop Dose Admin Heparin Sodium/Sodium Chloride 25,000 unit in 250 mls @ 0 mls/hr 01/20/25 20:30 01/20/25 21:29 Heparin Sodium,Porcine/1/2ns IVCONT 14 units/kg/hr .Q0M JEB 14.14 mls/hr Protocol Administration Per Protocol Discontinued Medications Generic Name Dose Route Start Last Admin Trade Name Freq PRN Reason Stop Dose Admin Heparin Sodium (Porcine) 4,000 unit 01/20/25 20:20 01/20/25 21:28 Heparin Sodium,Porcine 5,000 Unit/Ml Vial IVPUSH 01/20/25 20:21 4,000 unit ONCE ONE Administration Medical Decision Making Medical Decision Making MDM Narrative: This is a 54-year-old male history of lung cancer status post right lobectomy lymph node metastases presented hospital today for evaluation of PE. Patient was sent him by the pellet preparation operator for further treatment of his PE. Patient does have lingula PE, signs of right mainstem bronchus stenosis, some residual pneumothorax with pleural effusion. Patient was be started on heparin drip at this time. We will add a BNP and troponin to the patient to assess for any signs of heart strain. I reviewed patient's imaging and report. Spoken to Dr. Rm about the case. He recommends admission. No elevation in BNP no elevation in troponin. We will plan to admit the patient at this time. Differential Diagnosis Differential Diagnoses: The differential diagnosis associated with the presentation includes Pulmonary embolism, ACS, CHF, COPD, pneumonia Consult Healthcare Provider Management of the patient was discussed with: Hospitalist and [employer] (Dr. Rm) Lab Data MDM Lab Attestation statement: I reviewed the patient's lab results. 01/20/25 19:08 01/20/25 19:08 Labs: Lab Results 01/20/25 01/20/25 Range/Units 19:08 20:45 WBC 7.9 (4.8-10.8) X10*3/uL RBC 3.20 L (4.60-5.80) X10*6/uL Hgb 9.7 L (14.0-18.0) g/dl Hct 30.0 L (42.0-52.0) % MCV 93.8 (80.0-98.0) fL MCH 30.3 (27.0-33.0) pg MCHC 32.3 (31.0-36.0) g/dl RDW 12.9 (11.0-16.0) % Plt Count 467 H (160-400) X10*3/uL MPV 8.7 L (9.4-12.4) fL Immature Gran % (Auto) 0.4 (0.0-0.4) % Neut % (Auto) 63.7 (45-73) % Lymph % (Auto) 17.7 L (20-40) % [place] % (Auto) 8.3 (2-11) % Eos % (Auto) 8.9 H (0-4) % Baso % (Auto) 1.0 (0-2) % Lymph # (Auto) 1.4 (1.2-4.9) X10*3/uL [place] # (Auto) 0.7 (0.1-1.2) X10*3/uL Eos # (Auto) 0.7 H (0.0-0.4) X10*3/uL Baso # (Auto) 0.1 (0.0-0.2) X10*3/uL Abs Immat Gran (auto) 0.03 (0.00-0.03) X10*3/uL Absolute Neuts (auto) 5.0 (2.0-8.3) x10*3/uL Absolute Nucleated RBC 0.000 (0.0-0.012) X10*3/uL Nucleated RBC % (auto) 0.0 (0.0-0.2) /100WBC PT 11.5 (10.9-12.4) SEC INR 1.0 (0.9-1.1) APTT 33.1 (26.7-34.1) SEC Sodium 140 (135-145) mmol/L Potassium 4.2 (3.3-5.1) mmol/L Chloride 103 (96-108) mmol/L Carbon Dioxide 27 (22-29) mmol/L Anion Gap 14 (12-20) BUN 14 (9-16) mg/dL Creatinine 0.93 (0.5-1.4) mg/dL Estim Creat Clear Calc 105.1 Estimated GFR > 60 Random Glucose 112 (60-115) mg/dL Calcium 9.6 (8.4-10.2) mg/dL Total Bilirubin 0.1 (0.0-1.0) mg/dL AST 31 (5-37) U/L ALT 16 (0-40) U/L Alkaline Phosphatase 89 (39-117) U/L Troponin I High Sens < 2.7 (<3.5-35.0) ng/L NT-Pro-B Natriuret Pep 60.0 (<300) pg/mL Total Protein 7.3 (6.5-8.0) g/dL Albumin 4.2 (3.5-5.0) g/dL Independent Interpretation I performed an independent interpretation of an: Plain X-Ray and CT Scan Radiology Impression Discussion of test interpretation with radiology: I have reviewed the radiologist's reading. Chronic Conditions Patient?s care impacted by: Cancer (lung) Critical Care Time Critical Care Time Critical Care Time: Yes Total Critical Care Time: 36 Attestation: Time is exclusive of separately billable procedures. Time includes: direct patient care, patient reassessment, coordination of patient care, interpretation of data (laboratory data, pulse oximetry, arterial blood gases and chest xrays), review of patient's medical records, medical consultation and documentation of patient care. Procedures excluded from critical care time: central intravenous line placement and electrocardiography. Discharge Plan Discharge Clinical Impression: Lung cancer, Pulmonary embolism Patient Disposition: Admitted As Inpatient Print Language: Hungarian
--- NOTE | 2025-01-20 18:49 | ECG_ITS ---
Test Reason : DYSPNEA Blood Pressure : */* mmHG Vent. Rate : 83 BPM Atrial Rate : 83 BPM P-R Int : 120 ms QRS Dur : 70 ms QT Int : 356 ms P-R-T Axes : 43 -13 26 degrees QTcB Int : 418 ms Normal sinus rhythm Normal ECG When compared with ECG of 17-Aug-2024 16:29, No significant change was found Referred By: Nicole Gilbert Electronically Signed By: Miguelito Bentley
[2025-01-20 19:12] LABS: MANUAL DIFF FLAG NO
[2025-01-20 19:13] LABS: Hematocrit 30.0 % (42.0-52.0); Hemoglobin 9.7 g/dl (14.0-18.0); Imm Gran Abs Auto 0.03 X10*3/uL (0.00-0.03); Imm Gran Pct Auto 0.4 % (0.0-0.4); Lymphocytes Absolute Auto 1.4 X10*3/uL (1.2-4.9); Mean Corpuscular HGB Conc 32.3 g/dl (31.0-36.0); Mean Corpuscular Hemoglobin 30.3 pg (27.0-33.0); Mean Corpuscular Volume 93.8 fL (80.0-98.0); NRBC Abs Auto 0.000 X10*3/uL (0.0-0.012); NRBC Pct Auto 0.0 /100WBC (0.0-0.2); Platelet Count 467 X10*3/uL (160-400); Red Blood Count 3.20 X10*6/uL (4.60-5.80); White Blood Count 7.9 X10*3/uL (4.8-10.8)
[2025-01-20 19:18] LABS: INTERNATIONAL NORM RATIO 1.0 (0.9-1.1); Prothrombin Time 11.5 SEC (10.9-12.4)
[2025-01-20 19:31] VITALS: BP 136/92; PULSE 77; RESP 18; O2SAT 98
--- OUTSIDE RECORDS SUMMARY | 2025-01-20 19:43 | XMS_ITS | Encounter Summary ---
Author Organization [facility] Address [address] [facility] [address] [place] [phone] Phone Care Team Providers Care Music Pastor Name Role Phone Anusha Aparicio FLOORING INSTALLER Primary Care Provider [phone] Milagros Mejia FLOORING INSTALLER Primary Care Provider Self-Referred, Patient Unavailable Unavailab le Encounter Details Date Type Department Care Team (Late st Contact Info) Description 02/03/2021 Procedure Pass [facility] Endoscopy Admitting Dept Virtual Department [address] [place] [phone] Social History Tobacco Use Types Packs/Day Years [...] on filedocumented in this encounter Care Teams Music Pastor Relationship Specialty Start Date End Date Anusha Aparicio, FLOORING INSTALLER [address] [place] [address] PCP - General Nurse Practitioner 12/02/20 11/02/24 Milagros Mejia NP [address] [place] [address] PCP - General Nurse Practitioner 11/03/24 Self-Referred, Patient 11/03/24 documented as of this encounter Additional Source Comments The information contained in this document represents components of the legal health record. It is not the complete legal health record.[facility]
--- OUTSIDE RECORDS SUMMARY | 2025-01-20 19:43 | XMS_ITS | Clinical Summary ---
Author Organization [facility] Address [address] [facility] [address] [place], [place] [id number] Phone Care Team Providers Care Internship Name Role Phone Milagros Mejia TICKET CLERK Primary Care Provider Self-Referred, Patient Unavailable Unavailab [...] file Medical Devices Not on file Insurance [facility] HMO [facility] Care Teams Internship Relationship Specialty Start Date End Date Milagros Mejia NP [address] [place] [address] PCP - General Nurse Practitioner 11/03/24 Self-Referred, Patient 11/03/24 Additional Source Comments The information contained in this document represents components of the legal health record. It is not the complete legal health record.[facility]
--- OUTSIDE RECORDS SUMMARY | 2025-01-20 19:43 | XMS_ITS | Clinical Summary ---
Author Organization [facility] [address] [facility] Address [address] [place] [address] Phone Care Team Providers Care Crib Tender Name Role Phone EmytaylormarielaMilagros Nathan Primary Care Provider [phone] Allergies No known active allergies Medications folic [...] Daily Amount: 20 mg 40 tablet 01/05/20 025 Discontinued amoxicillin-clavu lanate XR (Augmentin XR) [...] Active Problems Problem Noted Date Diagnosed Date Infected incision 01/20/2025 Assessment & Plan (01/20/2025 3:17 PM EDT): 54-year-old male who on December 30, 2024 [...] [address] surveillance scan. Primary cancer of right uppe r lobe of lung (CMS/HCC V24, CMS/HCC V28) 10/12/2024 Assessment & Plan (01/13/2025 12:15 [...] continue following up with Dr. Gamez from [facility]. His next chest CT surveillance screening will [...] PM EDT Office Visit Thoracic Surgery - [place] [address] [facility] [address] [place] [phone] Kennedy Cunningham PA Infected incision (Primary Dx) 01/12/2025 2:17 PM EDT - 01/12/2025 11:59 PM EDT Hospital Encounter [facility] CT Scan [address] [place] [phone] Primary cancer of right upper lobe of lung (CMS/HCC V24, CMS/HCC V28) Discharge Disposition: Home or Self Care 01/12/2025 1:30 PM EDT Consult Pulmonology - [address] [phone] Amina Cuevas MD Shortness of breath (Primary Dx); Abnormal chest x-ray; Primary adenocarcinoma of right lung ([facility] V24, [facility] V28) 01/12/2025 1:00 PM EDT Office Visit Thoracic Surgery - [address] [phone] Brianna Barrett, [place] Primary cancer of right upper lobe of lung ([facility] V24, [facility] V28) 01/12/2025 12:26 PM EDT - 01/12/2025 11:59 PM EDT Hospital Encounter [facility] Xray [address] [place] [phone] Primary cancer of right upper lobe of lung ([facility] V24, [facility] V28) Discharge Disposition: Home or Self Care 01/12/2025 Telephone Thoracic Surgery - [address] [phone] Ynes Armendariz RN 12/30/2024 8:34 AM EDT Anesthesia Event [facility] Main OR [address] [place] [phone] Chapito Woodward MD Walsh, Michael, DO 12/30/2024 8:30 AM EDT - 12/30/2024 1:30 PM EDT Surgery [facility] Main OR [address] [place] [phone] Bertha Garza MD Davinci XI converted to thoracotomy right upper lobectomy, Davvanii XI mediastinal lymphadenectomy, cryo nerve block [10485 (CPT ) +3 more] 12/30/2024 7:02 AM EDT - 01/04/2025 11:53 AM EDT Hospital Encounter [facility] Intermediate Care [facility] B [address] [place] [phone] Bertha Garza MD Surendran, Anupama, MD Mohani, Priya, MD Bell, Alistair A, MD Primary cancer of right upper lobe of lung ([facility] V24, [facility] V28) Discharge Disposition: Home or Self Care 12/15/2024 Telephone Thoracic Surgery - [address] [phone] Daniela Rodriguez MA 12/14/2024 11:30 AM EDT Office Visit Thoracic Surgery - [address] [phone] Bertha Garza MD Primary cancer of right upper lobe of lung ([facility] V24, [facility] V28) (Primary Dx) 12/10/2024 Telephone Thoracic Surgery [address] [phone] Shantel Costello MA from Last 3 Months Surgical History Surgery Date Site/Laterality Comments BRONCHOSCOPY LUNG LOBECTOMY 12/30/2024 Right RUL Medical History Medical History Date Comments Lung cancer ([facility] V24, [facility] V28) RUL Family History Medical History Relation [...] 09/30/2024 COVID-19 Vaccine (4 - Moderna risk ) 12/28/2024 12/22/2023, 11/14/2020, 10/17/2020 Influenza Vaccine (#1) 2024 [...] this topic Medical Devices Implanted Type Area Bottled Beverage Inspector Device Identifier Shelf Expiration Date Model / Serial / Lot Central/Perip heral Catheters And Ports Central/Peripher al Catheters and Ports Left: Chest Wall Hemostat Absorb Surgicel Nu-Knit 3x4in - Sn/A - [id number] Implanted:Qty : 1 on 12/30/2024 by Bertha Garza MD at [facility] Hemostasis Right: Chest [facility] [employer] [id number] 04/28/2029 [id number] / N/A / [id number] Sealant Fibrin Vistaseal 10ml - [id number] - [id number] Implanted:Qty : 1 on 12/30/2024 by Bertha Garza MD at [facility] Hemostasis Right: Chest [facility] [employer] [id number] 06/09/2026 [id number] / [id number] / [id number] Sealant Progel Air Pleural 4ml - Sn/A - [id number] Implanted:Qty : 1 on 12/30/2024 by Bertha Garza MD at [facility] [employer] Right: Chest CR BARD - DAVOL DIV [id number] 01/27/2026 [id number] / N/A / [id number] Procedures Procedure Name Priority Date/Time Associated [...] LINE (CHARGE) Routine 12/30/2024 9:03 AM EDT AR THORACOSCOPY SURGICAL WITH REMOVAL OF LUNG 12/30/2024 8:33 AM EDT Primary cancer of right upper lobe of lung (CMS/HCC V24, CMS/HCC V28) Case Notes [facility],INPT AR REM LUNG OTH THAN PNEUMONECTOMY W CIRC RESEC SEGM BRONCHUS F/B ANAST 12/30/2024 8:33 AM EDT Primary cancer of right upper lobe of lung (CMS/HCC V24, CMS/HCC V28) Case Notes [facility],INPT AR REMOVAL OF LUNG OTHER THAN PNEUMONECTOMY SINGLE LOBE 12/30/2024 8:33 AM EDT Primary cancer of right upper lobe of lung (CMS/HCC V24, CMS/HCC V28) Case Notes [facility],INPT AR THORACOSCOPY SURGICAL WITH LOBECTOMY 12/30/2024 8:33 AM [...] Signed Date: 01/12/2025 15:45 ET Workstation ID: [id number] Transcribed By: Self Edit Transcribed Date: 01/12/2025 [...] Signed Date: 01/12/2025 15:45 ET Workstation ID: [id number] Transcribed By: Self Edit Transcribed Date: 01/12/2025 15:39 ET us Brianna Barrett ICT SALES ASSISTANT IMG CT PROCEDURES Final Res ult * XR Chest 2 Views (01/12/2025 12:33 PM EDT) Anatomical Region Laterality Modality Body Radiographic Maria ging 01/13/2025 4:24 PM EDT Impressions 01/13/2025 4:27 PM EDT Impression: 1. Small right apical loculated hydropneumothorax status post right chest tube removal. 2. At least small right pleural effusion of the right base. 3. Port-A-Cath well-positioned. Telerad NEYDA ([id number]) -------- FINAL REPORT -------- Dictated By: Mona Son Dictated Date: 01/13/2025 16:24 ET Assigned Physician: Mona Son Reviewed and Electronically Signed By: Mona Son Signed Date: 01/13/2025 16:27 ET Workstation ID: [id number] Transcribed By: Self Edit Transcribed Date: 01/13/2025 [...] of the SVC, unchanged. Procedure Note Mona Son MD - 01/13/2025 History: Worsening dyspnea. Right [...] silhouette remains normal in size. A left Ctnq-U-Spombtrtkmmmko at the level of the SVC, unchanged. IMPRESSION: Impression: 1. Small right apical loculated hydropneumothorax status post right chesttube removal. 2. At least small right pleural effusion of the right base. 3. Port-A-Cath well-positioned. Telestephen FAYE ([id number]) -------- FINAL REPORT -------- Dictated By: Mona Son Dictated Date: 01/13/2025 16:24 ET Assigned Physician: Mona Son Reviewed and Electronically Signed By: Mona Son Signed Date: 01/13/2025 16:27 ET Workstation ID: [id number] Transcribed By: Self Edit Transcribed Date: 01/13/2025 [...] Signed Date: 01/04/2025 08:41 ET Workstation ID: [id number] Transcribed By: Self Edit Transcribed Date: 01/04/2025 08:34 ET Narrative 01/04/2025 8:41 AM EDT XR CHEST 1 VIEW INDICATION: Pain TECHNIQUE: XR CHEST 1 VIEW COMPARISON: 01/03/2025 Procedure Note Jeancarlos Mercedes MD - 01/04/2025 XR CHEST 1 VIEW INDICATION: Pain TECHNIQUE: XR CHEST 1 VIEW COMPARISON: 01/03/2025 IMPRESSION: FINDINGS/IMPRESSION: Right chest tube remains in place. Left Tmuw-G-Eohwci unchanged. Volume loss in the right lung with small right apicalpneumothorax, similar compared to prior. Left lung is clear. Cardiacsilhouette and bones are stable. -------- FINAL REPORT -------- Dictated By: JEANCARLOS MERCEDES Dictated Date: 01/04/2025 08:34 ET Assigned Physician: JEANCARLOS MERCEDES Reviewed and Electronically Signed By: JEANCARLOS MERCEDES Signed Date: 01/04/2025 08:41 ET Workstation ID: [id number] Transcribed By: Self Edit Transcribed Date: 01/04/2025 08:34 ET Taylor FAYE IM XR PROCEDURES Final Resul t * (ABNORMAL) CBC - Every 3 Days (01/04/2025 5:41 AM EDT) Only the most recent of4 resultswithin the time period is included. WBC 17.1(H) 4.8 - 10.8 K/mcL LAB HEMETOLOGY METHOD 01/04/2025 6:48 AM EDT [facility] RBC 2.70(L) 4.50 - 5.50 M/mcL LAB HEMETOLOGY METHOD 01/04/2025 6:48 AM EDT [facility] Hemoglobin 8.1(L) 13.5 - 17.5 g/dL LAB HEMETOLOGY METHOD 01/04/2025 6:48 AM EDT [facility] Hematocrit 24.9(L) 42.0 - 54.0 % LAB HEMETOLOGY METHOD 01/04/2025 6:48 AM EDT [facility] MCV 92.9 79.0 - 98.0 FL LAB HEMETOLOGY METHOD 01/04/2025 6:48 AM EDT [facility] MCH 30.2 27.0 - 32.0 pcg LAB HEMETOLOGY METHOD 01/04/2025 6:48 AM EDT [facility] MCHC 32.5 32.0 - 37.0 g/dL LAB HEMETOLOGY METHOD 01/04/2025 6:48 AM EDT [facility] RDW 13.7 11.0 - 15.0 % LAB HEMETOLOGY METHOD 01/04/2025 6:48 AM EDT [facility] Platelets 295 130 - 400 K/mcL LAB HEMETOLOGY METHOD 01/04/2025 6:48 AM EDT [facility] MPV 9.9 7.0 - 11.0 FL LAB HEMETOLOGY METHOD 01/04/2025 6:48 AM EDT [facility] NRBC 0.0 <1.0 % LAB HEMETOLOGY METHOD 01/04/2025 6:48 AM EDT [facility] NRBC Absolute 0.00 <0.10 K/mcL LAB HEMETOLOGY METHOD 01/04/2025 6:48 AM EDT [facility] Blood Blood sample taken from central line / Unknown Venipuncture / Unknown 01/04/2025 5:41 AM EDT 01/04/2025 6:22 AM EDT us Kennedy FAYE LAB BLOOD ORDERABLES Fin al Result [facility] [address] [place] [address], * (ABNORMAL) Basic metabolic panel (01/01/2025 6:45 AM EDT) Only the most recent of4 resultswithin the time period is included. Sodium 136 133 - 145 mmol/L LAB CHEMISTRY METHOD 01/01/2025 7:42 AM [facility] Potassium 4.3 3.5 - 5.5 mmol/L LAB CHEMISTRY METHOD 01/01/2025 7:42 AM [facility] Chloride 102 96 - 110 mmol/L LAB CHEMISTRY METHOD 01/01/2025 7:42 AM [facility] CO2 29 21 - 32 mmol/L LAB CHEMISTRY METHOD 01/01/2025 7:42 AM [facility] Anion Gap 5 3 - 11 LAB CHEMISTRY METHOD 01/01/2025 7:42 AM [facility] Glucose 126(H) 70 - 100 mg/dL LAB CHEMISTRY METHOD 01/01/2025 7:42 AM [facility] BUN 28(H) 5 - 25 mg/dL LAB CHEMISTRY METHOD 01/01/2025 7:42 AM [facility] Creatinine 1.03 0.70 - 1.30 mg/dL LAB CHEMISTRY METHOD 01/01/2025 7:42 AM [facility] eGFR 86 >=60 mL/min/1. 73m2 LAB CHEMISTRY METHOD 01/01/2025 7:42 AM [facility] Comment:Calculation based on the Chronic Kidney Disease Epidemiology Collaboration (CKD-EPI) equation refit without adjustment for race. BUN/Creatinine Ratio 27.2 LAB CHEMISTRY METHOD 01/01/2025 7:42 AM [facility] Calcium 9.2 8.5 - 10.5 mg/dL LAB CHEMISTRY METHOD 01/01/2025 7:42 AM [facility] Blood Venous blood specimen / Unknown Venipuncture / Unknown 01/01/2025 6:45 AM EDT 01/01/2025 7:22 AM EDT us Michelle Parker MD LAB BLOOD ORDERABLES Final Result Performing Organization Address City/[facility]/ZIP Co de Phone Number [facility] [address] [place] [address], * Phosphorus (12/31/2024 5:47 AM EDT) Only the most recent of2 resultswithin the time period is included. Phosphorus 3.9 2.5 - 4.5 mg/dL LAB CHEMISTRY METHOD 12/31/2024 7:17 AM EDT [facility] Blood Venous blood specimen / Unknown Venipuncture / Unknown 12/31/2024 5:47 AM EDT 12/31/2024 6:10 AM EDT Brianna Barrett NP LAB BLOOD ORDERABLES Final Result Performing Organization Address [facility] Co de Phone Number [facility] [address] [place] [address], * Magnesium (12/31/2024 5:47 AM EDT) Only the most recent of2 resultswithin the time period is included. [facility] Signature Magnesium 1.9 1.9 - 2.6 mg/dL LAB CHEMISTRY METHOD 12/31/2024 7:17 AM EDT [facility] Comment:Hemolysis present Blood Venous blood specimen / Unknown Venipuncture / Unknown 12/31/2024 5:47 AM EDT 12/31/2024 6:10 AM EDT Brianna Barrett NP LAB BLOOD ORDERABLES Final Result Performing Organization Address [facility]/ZIP Co de Phone Number [facility] [address] [place] [address], * (ABNORMAL) POCT Arterial blood gas, LA (12/30/2024 3:59 PM EDT) [facility] pH Arterial POCT 7.36 7.35 - 7.45 12/31/2024 6:55 AM EDT [facility] pO2 Arterial POCT 126(H) 80 - 100 mmHg 12/31/2024 6:55 AM EDT [facility] pCO2 Arterial POCT 40.1 35 - 45 mmHg 12/31/2024 6:55 AM EDT [facility] SO2 Arterial POCT 99(H) 95 - 98 % 12/31/2024 6:55 AM EDT [facility] TCO2 Arterial POCT 24 21 - 32 mmol/L 12/31/2024 6:55 AM EDT [facility] HCO3 Arterial POCT 22.8 22.0 - 26.0 mmol/L 12/31/2024 6:55 AM EDT [facility] Base Excess Arterial POCT -2 -2 - 2 mmol/L 12/31/2024 6:55 AM T [facility] Lactate Arterial POCT 1.96 0.9 - 2 mmol/L 12/31/2024 6:55 AM T [facility] Blood Arterial blood specimen / Unknown 12/30/2024 3:59 PM EDT 12/31/2024 6:56 AM EDT Michelle Parker MD LAB POINT OF CARE T EST DOCKED DEVICE UNSOLICITED RESULTS Final Result [facility] [address] [place] [address], * Tissue exam (12/30/2024 9:38 AM EDT) [...] post chemotherapy and immunotherapy) 4:23 PM EDT [facility] Comment Keratin (NELSY) immunohistology shows no residual viable neoplasm in the tumor bed. 4:23 PM EDT [facility] Synoptic Checklist LUNG LUNG - [...] rib (part F) 5 4:23 PM EDT [facility] Gross Description A. Mediastinum, right [...] and grossly unremarkable trabeculated cut surface. A client relations representative section of each are submitted in one cassette, two pieces, following decalcification. G. Lung, Right Upper Lobe, for vascular margin: Labeled for vas, lung RUL . Received fresh, for frozen [...] is inked green. Digital photographs are taken. Vision Teacher sections are submitted in sixteen cassettes, including [...] whole hilar lymph node, one piece KR 4:23 PM EDT [facility] Intraoperative Consultation G. Lung, Right Upper Lobe, for vascular margin: Bronchial and vascular margins negative JS 4:23 PM EDT [facility] Disclaimer The immunohistochemistry stains were medically necessary and performed because the additional information was needed by the pathologist to determine presence of residual neoplasm. The immunohistochemical tests and in situ hybridization tests were developed and their performance characteristics were determined by [facility]. They have not been cleared [...] fixed and paraffin embedded. 4:23 PM EDT [facility] Lymph Node Mediastinal structure / Unknown [...] 3:34 PM EDT 12/30/2024 3:47 PM EDT us Laki Rousou MD LAB PATHOLOGY ORDERABLES Final R esult [facility] [address] [place] [address], [place] [phone] * Peripheral IV (12/30/2024 9:24 AM EDT) Alison Hurt CRNA - 12/30/2024 9:24 AM EDT Alison [...] difficulty assessment: 1 - vent by mask us Darryl Sarkar MD ANESTHESIA ORDERABLES Final [...] to verify the correct patient, procedure, equipment, academic support center director and site/side marked as required. Preparation: Patient [...] Leukoreduced (12/30/2024 7:43 AM EDT) Product Code [id number] 12/30/2024 6:16 PM EDT [facility] Unit Number [id number] 12/31/19 6:16 PM EDT [facility] Crossmatch Compatible 12/30/2024 8:39 AM EDT [facility] Dispense Status Released From Crossmatch 12/30/2024 6:16 PM EDT [facility] Unit ABO Rh APOS 12/30/2024 6:16 PM EDT [facility] Unit Expiration Date Time [id number] 12/30/2024 6:16 PM EDT [facility] Unit Blood Type 6200 12/30/2024 6:16 PM EDT [facility] Product Code [id number] 12/30/2024 6:15 PM EDT [facility] Unit Number [id number] 12/31/19 6:15 PM EDT [facility] Crossmatch Compatible 12/30/2024 8:39 AM EDT [facility] Dispense Status Released From Crossmatch 12/30/2024 6:15 PM EDT [facility] Unit ABO Rh APOS 12/30/2024 6:15 PM EDT [facility] Unit Expiration Date Time [id number] 12/30/2024 6:15 PM EDT [facility] Unit Blood Type 6200 12/30/2024 6:15 PM EDT [facility] Blood Venous blood specimen / Unknown 12/30/2024 7:43 AM EDT 12/24/2024 11:40 AM EDT us Bertha Garza MD BLOOD BANK PRODUCT ORDERABLES Fi nal Result [facility] [address] [place] [address], * ECG 12 lead - Procedural (No Charge) (12/24/2024 11:03 AM EDT) Ventricular Rate ECG 69 BPM GEMUSE Atrial Rate 69 BPM GEMUSE P-R Interval 132 ms GEMUSE QRS Duration 70 ms GEMUSE Q-T Interval 382 ms GEMUSE QTc 409 ms GEMUSE P Wave Norman 40 degrees GEMUSE R Norman -8 degrees GEMUSE T Norman 8 degrees GEMUSE ECG Interpretation Normal sinus rhythm Normal ECG When compared with ECG of 17-AUG-2021 19:32, No significant change was found Confirmed by Marcial BEAVER YUFENG ([id number]) on 12/24/2024 6:39:16 PM GEMUSE 12/24/2024 11:0 3 AM EDT 12/24/2024 6:39 PM EDT us Bertha Garza MD ECG ORDERABLES Final Result GEMUSE * (ABNORMAL) CBC auto differential (12/24/2024 10:54 AM EDT) WBC 9.9 4.8 - 10.8 K/mcL LAB HEMETOLOGY METHOD 12/24/2024 11:50 AM EDT [facility] RBC 3.80(L) 4.50 - 5.50 M/mcL LAB HEMETOLOGY METHOD 12/24/2024 11:50 AM [facility] Hemoglobin 11.6(L) 13.5 - 17.5 g/dL LAB HEMETOLOGY METHOD 12/24/2024 11:50 AM EDT [facility] Hematocrit 34.8(L) 42.0 - 54.0 % LAB HEMETOLOGY METHOD 12/24/2024 11:50 AM EDT [facility] MCV 91.6 79.0 - 98.0 FL LAB HEMETOLOGY METHOD 12/24/2024 11:50 AM [facility] MCH 30.5 27.0 - 32.0 pcg LAB HEMETOLOGY METHOD 12/24/2024 11:50 AM [facility] MCHC 33.3 32.0 - 37.0 g/dL LAB HEMETOLOGY METHOD 12/24/2024 11:50 AM [facility] RDW 14.1 11.0 - 15.0 % LAB HEMETOLOGY METHOD 12/24/2024 11:50 AM [facility] Platelets 298 130 - 400 K/mcL LAB HEMETOLOGY METHOD 12/24/2024 11:50 AM [facility] MPV 9.3 7.0 - 11.0 FL LAB HEMETOLOGY METHOD 12/24/2024 11:50 AM [facility] NRBC 0.0 <1.0 % LAB HEMETOLOGY METHOD 12/24/2024 11:50 AM [facility] NRBC Absolute 0.00 <0.10 K/mcL LAB HEMETOLOGY METHOD 12/24/2024 11:50 AM [facility] Neutrophils Relative 91.8 % LAB HEMETOLOGY METHOD 12/24/2024 11:50 AM [facility] Lymphocytes Relative 5.1 % LAB HEMETOLOGY METHOD 12/24/2024 11:50 AM [facility] Monocytes Relative 1.0 % LAB HEMETOLOGY METHOD 12/24/2024 11:50 AM [facility] Eosinophils Relative 0.1 % LAB HEMETOLOGY METHOD 12/24/2024 11:50 AM [facility] Basophils Relative 0.3 % LAB HEMETOLOGY METHOD 12/24/2024 11:50 AM [facility] Immature Granulocytes Relative 1.7 % LAB HEMETOLOGY METHOD 12/24/2024 11:50 AM [facility] Neutrophils Absolute 9.08(H) 1.50 - 7.00 K/mcL LAB HEMETOLOGY METHOD 12/24/2024 11:50 AM [facility] Lymphocytes Absolute 0.50(L) 1.00 - 5.00 K/[facility] LAB HEMETOLOGY METHOD 12/24/2024 11:50 AM EDT [facility] Monocytes Absolute 0.10(L) 0.20 - 1.00 K/[facility] HEMETOLOGY METHOD 12/24/2024 11:50 AM EDT [facility] Eosinophils Absolute 0.01 0.00 - 0.50 K/[facility] HEMETOLOGY METHOD 12/24/2024 11:50 AM EDT [facility] Basophils Absolute 0.03 0.00 - 0.20 K/[facility] HEMETOLOGY METHOD 12/24/2024 11:50 AM EDT [facility] Immature Granulocytes Absolute 0.17(H) 0.00 - 0.03 K/[facility] HEMETOLOGY METHOD 12/24/2024 11:50 AM EDT [facility] Blood Venous blood specimen / Unknown Venipuncture / Unknown 12/24/2024 10:54 AM EDT 12/24/2024 11:39 AM EDT us Bertha Garza MD LAB BLOOD ORDERABLES Final Resul t Performing Organization Address City/[facility]/ZIP Co de Phone Number [facility] [address] [place] [address], * Activated partial thromboplastin time (12/24/2024 10:54 AM EDT) aPTT 30.9 24.1 - 39.3 sec LAB COAGULATION METHOD 12/24/2024 11:56 AM EDT [facility] Blood Venous blood specimen / Unknown Venipuncture / Unknown 12/24/2024 10:54 AM EDT 12/24/2024 11:39 AM EDT us Bertha Garza MD LAB BLOOD ORDERABLES Final Resul t [facility] [address] [place] [address], [place] [phone] * (ABNORMAL) Prothrombin time with INR (12/24/2024 10:54 AM EDT) Protime 9.8(L) 10.6 - 13.9 sec LAB COAGULATION METHOD 12/24/2024 11:56 AM EDT [facility] INR 0.8 LAB COAGULATION METHOD 12/24/2024 11:56 AM EDT [facility] Blood Venous blood specimen / Unknown Venipuncture / Unknown 12/24/2024 10:54 AM EDT 12/24/2024 11:39 AM EDT us Bertha Garza MD LAB BLOOD ORDERABLES Final Resul t Performing Organization Address City/[facility]/ZIP Co de Phone Number [facility] [address] [place] [address], [place] [phone] * Type and screen (12/24/2024 10:54 AM EDT) Pathologist [facility] 12/24/2024 12:39 PM EDT [facility] Rh Type Positive 12/24/2024 12:39 PM EDT [facility] Antibody Screen Negative 12/24/2024 12:39 PM EDT [facility] Blood Venous blood specimen / Unknown Venipuncture / Unknown 12/24/2024 10:54 AM EDT 12/24/2024 11:40 AM EDT us Bertha Garza MD LAB BLOOD BANK TEST ORDERABLES F inal Result [facility] [address] [place] [address], [place] [phone] from Last 3 Months Insurance [facility] [address] [place] [address] Advance Directives * Full Code - Default [...] currently active code status orders. Care Teams Crib Tender Relationship Specialty Start Date End Date Milagros Mejia [address] [place] [phone] PCP - General Family Medicine 12/14/24
[2025-01-20 19:50] LABS: Alanine Aminotransferase 16 U/L (0-40); Albumin Level 4.2 g/dL (3.5-5.0); Alkaline Phosphatase 89 U/L (39-117); Anion Gap 14 (12-20); Aspartate Amino Transferase 31 U/L (5-37); Blood Urea Nitrogen 14 mg/dL (9-16); Calcium 9.6 mg/dL (8.4-10.2); Carbon Dioxide 27 mmol/L (22-29); Chloride 103 mmol/L (96-108); Creatinine Clr Calc Pharmacy 105.1; Estimated Glomerular Filt Rate > 60; Potassium 4.2 mmol/L (3.3-5.1); Sodium 140 mmol/L (135-145); Total Protein 7.3 g/dL (6.5-8.0)
[2025-01-20 21:00] LABS: Partial Thromboplastin Time 33.1 SEC (26.7-34.1)
[2025-01-20 21:17] LABS: NT Pro B Type Natriuretic Pept 60.0 pg/mL (<300)
[2025-01-20 21:22] LABS: Troponin-I High Sensitivity < 2.7 ng/L (<3.5-35.0)
[2025-01-20] MEDS: Heparin Sodium,Porcine/1/2NS 25,000 UNIT/250 ML IV.SOLN 14.14 UNIT IVCONT (21:29)
--- NOTE | 2025-01-20 22:22 | PHA.MEDREC ---
Addendum entered by Ray Kate [facility] 01/20/25 22:36: Reviewed by [facility] Original Note: Pharmacy Consult ? Medication Reconciliation Pharmacy has completed the medication reconciliation. Spoke with pt and pt at bedside and they were able to confirm pt medications. Pt taking amoxicillin-pot clavulanate still and states he has one day left of that medication. Pt taking Prednisone as needed for side effects he gets from chemo and just got that today.
[2025-01-20 22:32] VITALS: PULSE 78; RESP 16; O2SAT 96
[2025-01-20] MEDS: Albuterol/Iprat 2.5/0.5MG 3 ML AMPUL.NEB INHALE (22:32)
--- NOTE | 2025-01-20 22:39 | PM.IMHP ---
History of Present Illness Date of Service: 01/20/25 Chief Complaint: Shortness of breath 54-year-old male with a past medical history of lung cancer status post chemotherapy/lobectomy in December 2024; ex-smoker; presented to the hospital today with a chief complaint of shortness of breath. Patient mentioned that for the past few days he has been having shortness of breath which has been gradually worsening; spoke to his electronics lead Dr. Rm who suggested him to go to the ER for further evaluation. Mentioned that he had lobectomy done in December and since then he has been taking pain medications and has been doing well. Has had CAT scans did not show any evidence of pulmonary embolism last week. Noted mild pleural effusion. Denies any chest pain or palpitations. Denies any recent travel or sick contacts. Denies any fever chills cough or sputum production. Denies any weight gain. Patient denied any signs of bleeding. Review of all other systems is negative except mentioned above ER course: Per ER team, patient has slightly diminished breath sounds; no significant pedal edema; EKG nonischemic and; troponin negative; CT showed mild pleural effusion as well as pulmonary embolism. Notified patient's electronics lead who switched him to admit to the hospital. Patient was started on heparin drip. [facility] Medical History (Updated 01/20/25 @ 21:13 by Lian Oliveira DO) Dyspnea Lung cancer Hilar mass HTN (hypertension) Social History Household Members: Spouse and Family Are you a primary student career development specialist to a significant other at home: No Do you presently have visiting nurse or other home services: No Alcohol intake: current Alcohol intake frequency: a few times a week Alcohol type: beer Patient Tobacco Use Status: Former Tobacco user Tobacco use type: Cigarette Second Hand Smoke Exposure: No Advance Directives: No Advance Directives Information Provided: Yes Do you have a plan to hurt others: No Plan service: No Current occupational status: employed Meds Allergies Allergy/AdvReac Type Severity Reaction Status Date / Time No Known Allergies Allergy Verified 01/20/25 18:47 Active Medications: Current Medications Acetaminophen (Acetaminophen 325 Mg Tablet) 650 mg PO Q6H PRN PRN Reason: Pain, Mild 1-3,fever,headache Albuterol/Ipratropium (Albuterol/Iprat 2.5/0.5mg 3 Ml Ampul.Neb) 3 ml INHALE Q4H PRN PRN Reason: Shortness of Breath/Wheezing Last Admin: 01/20/25 22:32 Dose: 3 ml Calcium Carbonate (Calcium Carbonate 750 Mg Tab.Chew) 750 mg PO Q4H PRN PRN Reason: Heartburn Heparin Sodium (Porcine) (Heparin Sodium,Porcine 5,000 Unit/Ml Vial) 4,000 unit 40 unit/kg (4000 unit) IVPUSH PROTOCOL BOLUS PRN; Protocol PRN Reason: 40 unit/kg - Heparin Protocol Heparin Sodium (Porcine) (Heparin Sodium,Porcine 5,000 Unit/Ml Vial) 8,100 unit 80 unit/kg (8100 unit) IVPUSH PROTOCOL BOLUS PRN; Protocol PRN Reason: 80 unit/kg - Heparin Protocol Heparin Sodium/Sodium Chloride (Heparin Sodium,Porcine/1/2ns) 25,000 unit in 250 mls @ 0 mls/hr IVCONT .Q0M [facility]; Protocol Last Admin: 01/20/25 21:29 Dose: 14 units/kg/hr, 14.14 mls/hr Magnesium Hydroxide (Milk Of Magnesia 30 Ml Oral.Susp) 30 ml PO DAILY PRN PRN Reason: Constipation Melatonin (Melatonin 3 Mg Tablet) 6 mg PO BEDTIME PRN PRN Reason: Insomnia Sodium Chloride (0.9 % Sodium Chloride Flush 3 Ml Syringe) [address] [facility] Home Medications ?Medication ?Instructions ?Recorded ?Confirmed ?Last Taken ?Type tadalafil 20 mg tablet 20 mg PO DAILY PRN erectile 09/03/24 01/20/25 Unknown History disfunction acetaminophen 325 mg tablet 650 mg PO Q6H PRN Pain 01/20/25 01/20/25 Unknown History (Tylenol) amoxicillin-potassium clavulanate 1 tab PO BID 01/20/25 01/20/25 01/20/25 History 1,000 mg-62.5 mg tablet,ext.rel 12hr ibuprofen 200 mg tablet 600 mg PO Q6H PRN Pain 01/20/25 01/20/25 01/20/25 History oxycodone 5 mg capsule 5 mg PO DAILY PRN Pain 01/20/25 01/20/25 01/20/25 History prednisone 20 mg tablet 40 mg PO DAILY PRN Side effects 01/20/25 01/20/25 Unknown History from Chemo Physical Exam Vital Signs and Narrative: Vital Signs: Last Vital Signs Temp 97.4 F 01/20/25 18:45 Pulse 78 01/20/25 22:32 Resp 16 01/20/25 22:32 BP 136/92 H 01/20/25 19:31 Pulse Ox 98 01/20/25 19:31 O2 Del Method Room Air 01/20/25 19:31 BMI result Body Mass Index 32.9 Gen: Appears be in no acute distress HEENT: NCAT, Moist mucosa. Pulmonary: Vesicular breath sounds, fair air entry CVS: Normal S1-S2 Abdomen: BS+, Soft, Nontender Extremities: Warm well perfused Neuro: Alert and awake. Results Labs 01/20/25 19:08 01/20/25 19:08 Labs: Laboratory Results - last 24 hr 01/20/25 01/20/25 19:08 20:45 MCV 93.8 MCH 30.3 MCHC 32.3 RDW 12.9 Plt Count 467 H MPV 8.7 L Immature Gran % (Auto) 0.4 Neut % (Auto) 63.7 Lymph % (Auto) 17.7 L [place] % (Auto) 8.3 Eos % (Auto) 8.9 H Baso % (Auto) 1.0 Lymph # (Auto) 1.4 [place] # (Auto) 0.7 Eos # (Auto) 0.7 H Baso # (Auto) 0.1 Abs Immat Gran (auto) 0.03 Absolute Neuts (auto) 5.0 Absolute Nucleated RBC 0.000 Nucleated RBC % (auto) 0.0 PT 11.5 INR 1.0 APTT 33.1 Anion Gap 14 Estim Creat Clear Calc 105.1 Estimated GFR > 60 Random Glucose 112 Calcium 9.6 Total Bilirubin 0.1 AST 31 ALT 16 Alkaline Phosphatase 89 Troponin I High Sens < 2.7 NT-Pro-B Natriuret Pep 60.0 Total Protein 7.3 Albumin 4.2 Assessment and Plan (1) Pulmonary embolism: Qualifiers: Acute cor pulmonale presence: unspecified Chronicity: acute Pulmonary embolism type: unspecified Qualified Code(s): I26.99 - Other pulmonary embolism without acute cor pulmonale Status: Acute Plan 54-year-old male with a past medical history of lung cancer status post chemotherapy/lobectomy in December 2024; ex-smoker; presented to the hospital today with a chief complaint of shortness of breath. Shortness of breath: Pulmonary embolism: Residual pneumothorax: CT scan showed lingular pulmonary embolism. There is severe stenosis of the right mainstem bronchus-pulmonology was notified no acute intervention suggested. Patient breathing comfortably on room air. CT chest also postoperative changes after lobectomy. Mild pleural effusion. Noted associated 6th rib resection and subacute fracture of the right 5th rib. Noted small residual pneumothorax Continue supplemental oxygen Continue heparin drip Pulmonology follow-up in [facility] Pain control Echocardiogram Telemetry DVT prophylaxis: Patient on heparin drip Code status: Full code Quality Stroke Does the patient have a stroke diagnosis?: No VTE Prior VTE?: No VTE Risk Level:: Medical - moderate - high VTE Device Contraindication: Treatment Not Indicated VTE Drug Contraindication: N/A - Med Ordered
[2025-01-20 22:44] VITALS: BP 120/86; PULSE 85; O2SAT 95
--- NOTE | 2025-01-20 23:48 | PC.NURSE ---
Assumed care from RN New, pt resting in bed on Heparin drip, pt has slight chest pain discomfort, offered pain medication, pt denies any need for pain medication.
--- NOTE | 2025-01-21 02:44 | PC.NURSE ---
#20 in L-wrist placed d/t heparin gtt running in other IV line
--- NOTE | 2025-01-21 03:28 | PC.NURSE ---
pt was medicated per pain management, pt has relief and sleeping quietly.
[2025-01-21 03:57] VITALS: BP 128/84; PULSE 82; RESP 16; TEMP 36.9; O2SAT 95
[2025-01-21 04:04] LABS: PTT Heparin Drip 72.7 SEC (53-77.9)
--- NOTE | 2025-01-21 04:18 | PC.NURSE ---
Ptt back no current rate change, verified by second RN Eva.
[2025-01-21 05:18] LABS: MANUAL DIFF FLAG NO
[2025-01-21 05:19] LABS: Hematocrit 26.6 % (42.0-52.0); Hemoglobin 9.0 g/dl (14.0-18.0); Imm Gran Abs Auto 0.02 X10*3/uL (0.00-0.03); Imm Gran Pct Auto 0.3 % (0.0-0.4); Lymphocytes Absolute Auto 1.3 X10*3/uL (1.2-4.9); Mean Corpuscular HGB Conc 33.8 g/dl (31.0-36.0); Mean Corpuscular Hemoglobin 31.0 pg (27.0-33.0); Mean Corpuscular Volume 91.7 fL (80.0-98.0); NRBC Abs Auto 0.000 X10*3/uL (0.0-0.012); NRBC Pct Auto 0.0 /100WBC (0.0-0.2); Platelet Count 380 X10*3/uL (160-400); Red Blood Count 2.90 X10*6/uL (4.60-5.80); White Blood Count 6.1 X10*3/uL (4.8-10.8)
[2025-01-21 05:33] LABS: Alanine Aminotransferase 12 U/L (0-40); Albumin Level 3.7 g/dL (3.5-5.0); Alkaline Phosphatase 78 U/L (39-117); Anion Gap 13 (12-20); Aspartate Amino Transferase 24 U/L (5-37); Blood Urea Nitrogen 13 mg/dL (9-16); Calcium 9.1 mg/dL (8.4-10.2); Carbon Dioxide 26 mmol/L (22-29); Chloride 107 mmol/L (96-108); Creatinine Clr Calc Pharmacy 117.7; Estimated Glomerular Filt Rate > 60; Potassium 4.2 mmol/L (3.3-5.1); Sodium 142 mmol/L (135-145); Total Protein 6.4 g/dL (6.5-8.0)
--- NOTE | 2025-01-21 07:00 | CA_ITS ---
Transthoracic Echocardiogram Patient (Last, First, Middle): Brett Boo A Gender: M Date of : 1970 Age: 54 Procedure Date: 01/21/2025 Procedure Type: Transthoracic Echocardiogram Location: ER Height: 175. cm Weight: 100.7 kg BSA: 2.16 m2 Heart Rate: 84 bpm BP: 109 / 73 mmHg Therapeutic Riding Instructor: SB Referring MD: Denis Ruiz MD Symptoms: Pulmonary embolism Study Quality: Adequate w contrast ECG Rhythm: Sinus Findings Procedure Information Contrast agent, definity, is being given per protocol without apparent complications. Prior Study Comparison No prior study available for comparison. Measurements 2D Linear Measurements IVSd: 0.92 0.6-0.9/0.6-1.0 cm LVIDd: 3.37 3.9-5.3/4.2-5.9 cm LVIDd Index: 1.56 2.4-3.2/2.2-3.1 cm/m2 LVIDs: 2.12 2.0-3.6 cm LVPWd: 1.13 0.7-1.1 cm LA Diam: 3.50 2.7-3.8/3.0-4.0 cm LAIDs Index: 1.62 1.5-2.3 cm/m2 LV Mass: 126.15 67-162/88-224 g LV Mass Index: 58.40 43-95/49-115 g/m2 LVOT Diam: 2.00 3.0+(-)1.3 cm 2D Systolic Function EF 4C: 59.40 >55% EF 2C: 66.40 >55% EF BiP: 63.60 >55% Mitral Valve MV Pk E: 0.98 MV PK A: 0.81 MV Decel Time: 178.00 E/A: 1.20 E'Lateral: 12.20 E'Medial: 6.85 E/E' Med: 14.30 E/E' Lat: 8.00 PHT: 52.00 MVA PHT: 4.23 Decel Oliver: 5.50 Aortic Valve AoV Pk Rajiv: 1.66 AoV Mn Rajiv: 1.13 AoV VTI: 0.30 AoV Pk Grad: 11.00 Aov Mn Grad: 6.00 ERROL Cont.VTI: 2.18 LVOT LVOT Pk Rajiv: 1.14 LVOT Mn Rajiv: 0.78 LVOT VTI: 0.21 LVOT Pk Grad: 5.00 LVOT Mn Grad: 3.00 LVOT Diam: 2.00 LVOT Area: 3.14 Diastolic Function MV Pk E: 0.98 MV Pk A: 0.81 E/A: 1.20 E'Medial: 6.85 E/E' Med: 14.30 E' Laterial: 12.20 E/E' Lat: 8.00 Right Ventricle TAPSE (mm): 26.40 TVS' Rajiv: 14.30 Tricuspid Valve TR Pk Rajiv: 2.41 TR Pk Grad: 23.00 RA Press: 8.00 RVSP: 31.00 Great Vessels Aorta Sinus of Valsalva: 3.60 2.0-3.5 cm Ao Asc: 3.40 2.1-3.4 cm Ao Arch: 2.70 Pulmonary Veins Pulm Vein S/D 1.30 Pulmonary Valve PV Pk Rajiv: 0.92 Peak PV Grad: 3.00 Updated in Other Vendor System with Status of Preliminary
--- NOTE | 2025-01-21 07:34 | PC.NURSE ---
Pt sitting up at the edge of the bed, eating breakfast, heparin infusing. urinal to void.
[2025-01-21 08:55] VITALS: BP 109/73; PULSE 83; RESP 21; TEMP 37.2; O2SAT 97
[2025-01-21] MEDS: oxyCODONE HCl Immed Release 5 MG TABLET PO (09:01)
--- NOTE | 2025-01-21 10:16 | MHC.CM.PN ---
PT REPORTS HE LIVES WITH HIS AND IS INDEPENDENT WITH CARE HE HAS NO DME OR SERVICES HCP ON FILE AND VERIFIED [place] [facility] [place] VIA PRIVATE TRANSPORT
[2025-01-21 11:26] LABS: PTT Heparin Drip 56.1 SEC (53-77.9)
--- NOTE | 2025-01-21 11:57 | PC.NURSE ---
Two PTT levels within normal range, heparin rate unchanged, next PTT level ordered for tomorrow morning per protocol. Angelica Mauricio made aware via [email or web address].
[2025-01-21 14:11] VITALS: BP 122/79; PULSE 84; RESP 22; O2SAT 95
--- NOTE | 2025-01-21 14:36 | P.CONPL_ITS ---
History of Present Illness History of Present Illness Consult date: 01/21/25 Chief complaint: Dyspnea Narrative: 54-year-old gentleman with recent right upper lobectomy for lung adenocarcinoma at [facility] on 12/30/2024 admitted on 01/20/2025 with gradually worsening dyspnea. On ER evaluation patient with CT angio chest positive for left-sided pulmonary emboli and right-sided postoperative changes. Patient started on anticoagulation with some improvement in his symptoms. Review of Systems 2 Constitutional: Constitutional: Denies daytime sleepiness, Denies excessive sweating, Denies fatigue, Denies fever(s), Denies lethargy, Denies malaise, Denies night sweats, Denies snoring and Denies weight loss Eyes: Eyes: Denies blurry vision and Denies itchy eyes ENT: Denies nasal congestion, Denies post nasal drip, Denies sinus pain, Denies sinus pressure and Denies other ( Thrush) Cardiovascular: Cardiovascular: Denies chest pain, Denies pedal edema, Denies dyspnea, Reports dyspnea on exertion, Denies orthopnea and Denies paroxysmal nocturnal dyspnea Respiratory: Respiratory: Denies cough, Denies hemoptysis, Denies excessive phlegm production, Denies dyspnea, Reports dyspnea on exertion, Denies snoring and Denies wheezing Gastrointestinal: Gastrointestinal: Denies abdominal pain and Denies heartburn Musculoskeletal: Musculoskeletal: Denies myalgias, Denies arthralgias and Denies joint swelling Integumentary/Breasts: Skin/Breast: Denies rash Neurologic: Denies memory loss and Denies seizure-like activity Psychiatric: Psychiatric: Denies abnormal sleep pattern, Denies anxiety and Denies memory loss Endocrine: Endocrine: Denies excessive sweating, Denies fatigue and Denies heat intolerance Hematologic/Lymphatic: Hematologic/Lymphatic: Denies easy bruising Allergic/Immunologic: Allergic/Immunologic: Denies itchy eyes, Denies seasonal rhinorrhea and Denies wheezing PMFSH Past Medical History Medical History (Updated 01/20/25 @ 21:13 by Lian Oliveira DO) Dyspnea Lung cancer Hilar mass HTN (hypertension) Social History Social History Household Members: Spouse Housing: House Are you a primary critical care nurse specialist to a significant other at home: No Do you presently have visiting nurse or other home services: No Alcohol intake: current Alcohol intake frequency: a few times a week Alcohol type: beer Patient Tobacco Use Status: Former Tobacco user Tobacco use type: Cigarette Smoked in Last 30 Days: No Second Hand Smoke Exposure: No Have you been hit, kicked, punched, or otherwise hurt by someone within the past year? If so, by whom?: No Do you feel safe in your current relationship?: Yes Is there a partner from a previous relationship who is making you feel unsafe now?: No Are you made to feel afraid or neglected: No Advance Directives: No Advance Directives Information Provided: Yes Do you have a plan to hurt others: No Plan Recently lost weight without trying: Yes How much weight loss: 2-13 pounds Eating poorly because of decreased appetite: Yes Nutrition screen score: 4 Nutrition Risks: No Nutritional Risk Poor oral hygiene: No service: No Current occupational status: employed Meds Allergies Allergy/AdvReac Type Severity Reaction Status Date / Time No Known Allergies Allergy Verified 01/20/25 18:47 Active Medications: Current Medications Acetaminophen (Acetaminophen 325 Mg Tablet) 650 mg PO Q6H PRN PRN Reason: Pain, Mild 1-3,fever,headache Albuterol/Ipratropium (Albuterol/Iprat 2.5/0.5mg 3 Ml Ampul.Neb) 3 ml INHALE Q4H PRN PRN Reason: Shortness of Breath/Wheezing Last Admin: 01/20/25 22:32 Dose: 3 ml Calcium Carbonate (Calcium Carbonate 750 Mg Tab.Chew) 750 mg PO Q4H PRN PRN Reason: Heartburn Folic Acid (Folic Acid 1 Mg Tablet) 1 mg PO DAILY [facility] Last Admin: 01/21/25 09:01 Dose: 1 mg Heparin Sodium (Porcine) (Heparin Sodium,Porcine 5,000 Unit/Ml Vial) 4,000 unit 40 unit/kg (4000 unit) IVPUSH PROTOCOL BOLUS PRN; Protocol PRN Reason: 40 unit/kg - Heparin Protocol Heparin Sodium (Porcine) (Heparin Sodium,Porcine 5,000 Unit/Ml Vial) 8,100 unit 80 unit/kg (8100 unit) IVPUSH PROTOCOL BOLUS PRN; Protocol PRN Reason: 80 unit/kg - Heparin Protocol Heparin Sodium/Sodium Chloride (Heparin Sodium,Porcine/1/2ns) 25,000 unit in 250 mls @ 0 mls/hr IVCONT .Q0M [facility]; Protocol Last Titration: 01/21/25 11:38 Dose: 14 units/kg/hr, 14.14 mls/hr Magnesium Hydroxide (Milk Of Magnesia 30 Ml Oral.Susp) 30 ml PO DAILY PRN PRN Reason: Constipation Melatonin (Melatonin 3 Mg Tablet) 6 mg PO BEDTIME PRN PRN Reason: Insomnia Oxycodone HCl (Oxycodone Hcl Immed Release 5 Mg Tablet) 5 mg PO DAILY PRN PRN Reason: Pain, Moderate(Pain Scale 4-6) Last Admin: 01/21/25 09:01 Dose: 5 mg Sodium Chloride (0.9 % Sodium Chloride Flush 3 Ml Syringe) 3 ml IVFLUSH [facility] Last Admin: 01/21/25 07:12 Dose: Not Given Home Medications ?Medication ?Instructions ?Recorded ?Confirmed ?Last Taken ?Type tadalafil 20 mg tablet 20 mg PO DAILY PRN erectile 09/03/24 01/20/25 Unknown History disfunction acetaminophen 325 mg tablet 650 mg PO Q6H PRN Pain 01/20/25 Unknown History (Tylenol) amoxicillin-potassium clavulanate 1 tab PO BID 5 01/20/25 01/20/25 History 1,000 mg-62.5 mg tablet,ext.rel 12hr ibuprofen 200 mg tablet 600 mg PO Q6H PRN Pain 01/2001/20/25 01/20/25 History oxycodone 5 mg capsule 5 mg PO DAILY PRN Pain 01/2001/20/25 01/20/25 History prednisone 20 mg tablet 40 mg PO DAILY PRN Side effe cts 01/20/25 01/20/25 Unknown History from Chemo Physical Exam 2 Vital Signs: Vital Signs: Last Vital Signs Temp 98.9 F 01/21/25 08:55 Pulse 84 01/21/25 14:11 Resp 22 H 01/21/25 14:11 BP 122/79 01/21/25 14:11 Pulse Ox 95 01/21/25 14:11 O2 Del Method Room Air 01/21/25 14:11 BMI result Body Mass Index 32.9 Const: General: no acute distress and alert Nutritional Appearance: not obese Orientation/consciousness: Other orientation findings ( oriented) HEENT: Head: Yes atraumatic Eyes: General: appearance normal, both eyes and all related structures S clerae: sclerae normal EOM: EOMs intact bilaterally Neck: Neck: Yes supple Lymphatic: no lymphadenopathy noted Resp: Effort & Inspection: normal respiratory effort and no use of accessory muscles Auscultation: clear to auscultation bilaterally Cardio: Rate: regular rate Rhythm: regular rhythm Heart sounds: no gallops, no murmurs and no rubs Skin: General skin exam: other ( warm) Extrem: General: No clubbing, No cyanosis and No edema Results Laboratory Findings 01/21/25 05:13 01/21/25 05:13 ABG, PT/INR, D-dimer: PT/INR, D-dimer PT 11.5 SEC (10.9-12.4) 01/20/25 19:08 INR 1.0 (0.9-1.1) 01/20/25 19:08 Abnormal lab findings: Abnormal Labs 01/20/25 01/21/25 19:08 05:13 RBC 3.20 L 2.90 L Hgb 9.7 L 9.0 L Hct 30.0 L 26.6 L Plt Count 467 H MPV 8.7 L 8.3 L Lymph % (Auto) 17.7 L Eos % (Auto) 8.9 H 10.7 H Eos # (Auto) 0.7 H 0.7 H Total Protein 6.4 L Assessment and Plan (1) Status post lobectomy of lung: Status: Acute (2) Pulmonary embolism: Qualifiers: Acute cor pulmonale presence: unspecified Chronicity: acute Pulmonary embolism type: unspecified Qualified Code(s): I26.99 - Other pulmonary embolism without acute cor pulmonale Status: Acute Plan Impression: 54-year-old gentleman 3 weeks status post right upper lobectomy for lung adenocarcinoma admitted on 01/20/2025 with worsening dyspnea secondary to newly not pulmonary embolus, now on anticoagulation with some improvement. Likely provoked postoperative pulmonary embolus. Recommendation: Agree with full-dose anticoagulation. Patient continues to follow-up with [facility] thoracic surgery for postoperative checks. At this time patient with normoxemia on room air and appears to be essentially at his postoperative baseline. Procedures Date of Service Date of Service: 01/21/25
[2025-01-21 14:59] VITALS: BP 122/72; PULSE 81; RESP 18; TEMP 37; O2SAT 97
[2025-01-21] MEDS: Heparin Sodium,Porcine/1/2NS 25,000 UNIT/250 ML IV.SOLN 14.14 UNIT IVCONT (15:01)
--- NOTE | 2025-01-21 15:42 | P.PNIM_ITS ---
Subjective Subjective Date of Service: 01/21/25 Interval History: seen and examined this morning follow up for PE pt with VICKERS, no sob at rest; still with some pain postoperatively; s/p lobectomy two weeks ago Review of Systems Review of Systems: Yes all other systems are reviewed and are negative Constitutional Constitutional: Denies chills and Denies fever(s) Cardiovascular Cardiovascular: Denies chest pain, Denies palpitations and Reports dyspnea on exertion Respiratory Respiratory: Reports dyspnea on exertion Gastrointestinal Gastrointestinal: Denies abdominal pain Endocrine Endocrine: Denies palpitations Physical Exam 2 Vital Signs: Vital Signs: Last Vital Signs Temp 98.6 F 01/21/25 14:59 Pulse 81 01/21/25 14:59 Resp 18 01/21/25 14:59 BP 122/72 01/21/25 14:59 Pulse Ox 97 01/21/25 14:59 O2 Del Method Room Air 01/21/25 14:59 BMI result Body Mass Index 32.9 Const: General: cooperative, comfortable, alert and awake Nutritional Appearance: average body habitus Orientation/consciousness: patient oriented x3 Resp: Other: clear to auscultation Effort & Inspection: normal respiratory effort and able to speak in complete sentences Cardio: Rate: not tachycardic GI: Palpation (GI): Soft to palpation Neuro: General: patient oriented x3, moves all extremities and CN's II-XI intact bilaterally Extrem: General: No pedal edema Objective Data Active Medications Acetaminophen (Acetaminophen 325 Mg Tablet) 650 mg PO Q6H PRN PRN Reason: Pain, Mild 1-3,fever,headache Albuterol/Ipratropium (Albuterol/Iprat 2.5/0.5mg 3 Ml Ampul.Neb) 3 ml INHALE Q4H PRN PRN Reason: Shortness of Breath/Wheezing Last Admin: 01/20/25 22:32 Dose: 3 ml Documented By: KAREN Calcium Carbonate (Calcium Carbonate 750 Mg Tab.Chew) 750 mg PO Q4H PRN PRN Reason: Heartburn Folic Acid (Folic Acid 1 Mg Tablet) 1 mg PO DAILY JEB Last Admin: 01/21/25 09:01 Dose: 1 mg Documented By: CRISTAL Heparin Sodium (Porcine) (Heparin Sodium,Porcine 5,000 Unit/Ml Vial) 4,000 unit 40 unit/kg (4000 unit) IVPUSH PROTOCOL BOLUS PRN; Protocol PRN Reason: 40 unit/kg - Heparin Protocol Heparin Sodium (Porcine) (Heparin Sodium,Porcine 5,000 Unit/Ml Vial) 8,100 unit 80 unit/kg (8100 unit) IVPUSH PROTOCOL BOLUS PRN; Protocol PRN Reason: 80 unit/kg - Heparin Protocol Heparin Sodium/Sodium Chloride (Heparin Sodium,Porcine/1/2ns) 25,000 unit in 250 mls @ 0 mls/hr IVCONT .Q0M [facility]; Protocol Last Admin: 01/21/25 15:01 Dose: 14 units/kg/hr, 14.14 mls/hr Documented By: PARUL Co-signed By: JOSE Magnesium Hydroxide (Milk Of Magnesia 30 Ml Oral.Susp) 30 ml PO DAILY PRN PRN Reason: Constipation Melatonin (Melatonin 3 Mg Tablet) 6 mg PO BEDTIME PRN PRN Reason: Insomnia Oxycodone HCl (Oxycodone Hcl Immed Release 5 Mg Tablet) 5 mg PO DAILY PRN PRN Reason: Pain, Moderate(Pain Scale 4-6) Last Admin: 01/21/25 09:01 Dose: 5 mg Documented By: CRISTAL Sodium Chloride (0.9 % Sodium Chloride Flush 3 Ml Syringe) 3 ml IVFLUSH [facility] Last Admin: 01/21/25 07:12 Dose: Not Given Documented By: CRISTAL Non-Admin Reason: IV Running Labs 01/21/25 05:13 01/21/25 05:13 Labs: Laboratory Results - last 24 hr 01/20/25 01/20/25 01/21/25 19:08 20:45 03:50 MCV 93.8 MCH 30.3 MCHC 32.3 RDW 12.9 Plt Count 467 H MPV 8.7 L Immature Gran % (Auto) 0.4 Neut % (Auto) 63.7 Lymph % (Auto) 17.7 L [place] % (Auto) 8.3 Eos % (Auto) 8.9 H Baso % (Auto) 1.0 Lymph # (Auto) 1.4 [place] # (Auto) 0.7 Eos # (Auto) 0.7 H Baso # (Auto) 0.1 Abs Immat Gran (auto) 0.03 Absolute Neuts (auto) 5.0 Absolute Nucleated RBC 0.000 Nucleated RBC % (auto) 0.0 PT 11.5 INR 1.0 APTT 33.1 aPTT Heparin Protocol 72.7 Anion Gap 14 Estim Creat Clear Calc 105.1 Estimated GFR > 60 Random Glucose 112 Calcium 9.6 Total Bilirubin 0.1 AST 31 ALT 16 Alkaline Phosphatase 89 Troponin I High Sens < 2.7 NT-Pro-B Natriuret Pep 60.0 Total Protein 7.3 Albumin 4.2 01/21/25 01/21/25 05:13 10:16 MCV 91.7 MCH 31.0 MCHC 33.8 RDW 13.0 Plt Count 380 MPV 8.3 L Immature Gran % (Auto) 0.3 Neut % (Auto) 56.6 Lymph % (Auto) 21.3 [place] % (Auto) 10.1 Eos % (Auto) 10.7 H Baso % (Auto) 1.0 Lymph # (Auto) 1.3 [place] # (Auto) 0.6 Eos # (Auto) 0.7 H Baso # (Auto) 0.1 Abs Immat Gran (auto) 0.02 Absolute Neuts (auto) 3.4 Absolute Nucleated RBC 0.000 Nucleated RBC % (auto) 0.0 PT INR APTT aPTT Heparin Protocol 56.1 D Anion Gap 13 Estim Creat Clear Calc 117.7 Estimated GFR > 60 Random Glucose 104 Calcium 9.1 Total Bilirubin 0.2 AST 24 ALT 12 Alkaline Phosphatase 78 Troponin I High Sens NT-Pro-B Natriuret Pep Total Protein 6.4 L Albumin 3.7 Assessment and Plan (1) Pulmonary embolism: Status: Acute (2) Non-small cell lung cancer: Status: Chronic (3) Status post lobectomy of lung: Status: Acute Plan This is 54-year-old male with a past medical history of lung cancer status post chemotherapy/lobectomy in December 2024; ex-smoker; presented to the hospital today with a chief complaint of shortness of breath. Acute Pulmonary embolism: Provoked due to recent surgery with underlying lung cancer CTA scan showed lingular pulmonary embolism. There is severe stenosis of the right mainstem bronchus-pulmonology was notified no acute intervention suggested. Patient breathing comfortably on room air. Troponin, BNP negative Echocardiogram pending Continue heparin, likely transitioned to oral Eliquis in a.m. CT chest also postoperative changes after lobectomy. Mild pleural effusion. Noted associated 6th rib resection and subacute fracture of the right 5th rib. Noted small residual pneumothorax Seen by Pulmonary. No specific intervention required at this time. Recommend outpatient follow-up with thoracic surgeon Lung cancer s/p right lobectomy outpatient follow up at [facility] with thoracic surgery and [facility] oncology DVT prophylaxis: Patient on heparin drip Code status: Full code Quality Stroke Does the patient have a stroke diagnosis?: No VTE Prior VTE?: No VTE Risk Level:: Medical - moderate - high VTE Device Contraindication: Treatment Not Indicated VTE Drug Contraindication: N/A - Med Ordered
[2025-01-21 19:22] VITALS: BP 131/87; PULSE 88; RESP 18; TEMP 36.3; O2SAT 96
[2025-01-21 23:41] VITALS: BP 123/74; PULSE 89; RESP 16; TEMP 36.2; O2SAT 94
[2025-01-22] MEDS: oxyCODONE HCl Immed Release 5 MG TABLET PO (02:57)
[2025-01-22 04:00] VITALS: BP 138/87; PULSE 90; RESP 16; TEMP 36.8; O2SAT 94
[2025-01-22 06:19] LABS: Hematocrit 28.2 % (42.0-52.0); Hemoglobin 9.4 g/dl (14.0-18.0); Mean Corpuscular HGB Conc 33.3 g/dl (31.0-36.0); Mean Corpuscular Hemoglobin 30.7 pg (27.0-33.0); Mean Corpuscular Volume 92.2 fL (80.0-98.0); NRBC Abs Auto 0.000 X10*3/uL (0.0-0.012); NRBC Pct Auto 0.0 /100WBC (0.0-0.2); Platelet Count 394 X10*3/uL (160-400); Red Blood Count 3.06 X10*6/uL (4.60-5.80); White Blood Count 7.3 X10*3/uL (4.8-10.8)
[2025-01-22 06:31] LABS: PTT Heparin Drip 66.8 SEC (53-77.9)
[2025-01-22 07:06] VITALS: BP 122/80; PULSE 83; RESP 18; TEMP 36.2; O2SAT 95
[2025-01-22] MEDS: 0.9 % Sodium Chloride Flush 3 ML SYRINGE IVFLUSH (09:11)
[2025-01-22] MEDS: Heparin Sodium,Porcine/1/2NS 25,000 UNIT/250 ML IV.SOLN 14.14 UNIT IVCONT (10:45)
--- NOTE | 2025-01-22 10:58 | MHC.CM.PN ---
ANTIC PT WILL BE MEDICALLY CLEARED HOME SELF-CARE PENDING DOPPLER US, PT WILL ARRANGE TRANSPORT.
[2025-01-22 11:05] VITALS: BP 136/84; PULSE 88; RESP 17; TEMP 36.8; O2SAT 98
--- NOTE | 2025-01-22 12:01 | PM.DS ---
DS: Providers Provider Date of Service: 01/22/25 Date of admission: 01/20/25 21:44 Date of discharge: 01/22/25 Primary care physician: Milagros Mejia NP Consults: 01/20/25 22:45 Consult to Pulmonology Routine Consulting Provider: [facility] Pulmonology Services Reason for consultation: Pulmonary embolism; residual pneumothorax; status post lobectomy; DS: Diagnosis Discharge Diagnosis (1) Pulmonary embolism: Status: Acute (2) Non-small cell lung cancer: Status: Chronic (3) Status post lobectomy of lung: Status: Acute DS: Summary Hospital Course Hospital Course: from initial hpi: 54-year-old male with a past medical history of lung cancer status post chemotherapy/lobectomy in December 2024; ex-smoker; presented to the hospital today with a chief complaint of shortness of breath. Patient mentioned that for the past few days he has been having shortness of breath which has been gradually worsening; spoke to his blow molding machine operator Dr. Rm who suggested him to go to the ER for further evaluation. Mentioned that he had lobectomy done in December and since then he has been taking pain medications and has been doing well. Has had CAT scans did not show any evidence of pulmonary embolism last week. Noted mild pleural effusion. Denies any chest pain or palpitations. Denies any recent travel or sick contacts. Denies any fever chills cough or sputum production. Denies any weight gain. Patient denied any signs of bleeding. Review of all other systems is negative except mentioned above ER course: Per ER team, patient has slightly diminished breath sounds; no significant pedal edema; EKG nonischemic and; troponin negative; CT showed mild pleural effusion as well as pulmonary embolism. Notified patient's blow molding machine operator who switched him to admit to the hospital. Patient was started on heparin drip. hospital course: Patient was admitted for acute pulmonary embolism provoked by recent surgery and underlying lung cancer. Was treated with IV heparin, severe stenosis of the right mainstem bronchus was reviewed by pulmonology who felt no intervention required at this time. Patient's breathing improved. Will be discharged home on apixaban. For lung cancer status post right lobectomy [facility]. Time Attestation Discharge Coordination Time (in mins): 33 Quality: Safe Use of Opioids Does Pt have an Active Cancer Diagnosis on the Problem List?: Yes Opioid Measure Date for [facility] Report: 12/23/24 Opioid Measure Time for [facility] Report: 15:42 Quality: Stroke Does the patient have a stroke diagnosis?: No Physical Exam Vital Signs: Vital Signs: Last Vital Signs Temp 98.3 F 01/22/25 11:05 Pulse 88 01/22/25 11:05 Resp 17 01/22/25 11:05 BP 136/84 01/22/25 11:05 Pulse Ox 98 01/22/25 11:05 O2 Del Method Room Air 01/22/25 11:05 BMI result Body Mass Index 32.9 Const: General: cooperative, comfortable, alert and awake Nutritional Appearance: average body habitus Orientation/consciousness: patient oriented x3 Resp: Other: clear to auscultation Effort & Inspection: normal respiratory effort and able to speak in complete sentences Cardio: Rate: not tachycardic GI: Palpation (GI): Soft to palpation Neuro: General: patient oriented x3, moves all extremities and CN's II-XI intact bilaterally Extrem: General: No pedal edema DS: Data Data Completed and Pending Labs on day of discharge: Laboratory Results - last 24 hr 01/22/25 06:04 WBC 7.3 RBC 3.06 L Hgb 9.4 L Hct 28.2 L MCV 92.2 MCH 30.7 MCHC 33.3 RDW 12.8 Plt Count 394 MPV 8.7 L Absolute Nucleated RBC 0.000 Nucleated RBC % (auto) 0.0 aPTT Heparin Protocol 66.8 Discharge Plan Discharge Anticipated Discharge Date/Time: 01/22/25 12:00 Patient Disposition: Home, Self-Care Discharge Diagnosis: PE Referrals: Milagros Mejia NP [Primary Care Provider, Family Practice] - 1 Week Discharge Medications: New apixaban 5 mg (74 tabs) tablets,dose pack 5 mg PO BID Qty: 74 0RF Continued tadalafil 20 mg tablet 20 mg PO DAILY PRN (Reason: erectile disfunction) acetaminophen [Tylenol] 325 mg Tablet 650 mg PO Q6H PRN (Reason: Pain) ibuprofen 200 mg Tablet 600 mg PO Q6H PRN (Reason: Pain) amoxicillin-pot clavulanate 1,000-62.5 mg tablet extended release 12 hr 1 tab PO BID prednisone 20 mg tablet 40 mg PO DAILY PRN (Reason: Side effects from Chemo) folic acid 1 mg Tablet 1 mg PO DAILY Qty: 90 3RF oxycodone 5 mg Capsule 5 mg PO DAILY PRN (Reason: Pain) Discharge Orders: Discharge Order (Routine); Ordered 01/22/25 Ordered By: John Silverman Diet: Advance to usual diet Activity on Discharge: As tolerated Stand Alone Forms: Patient Portal Discharge page Print Language: Belizean Care Plan Goals: recovery Health Concerns: pe Plan of Treatment: eliquis 10mg bid for 7 days, then 5mg bid Assessment: see above
[2025-01-22 15:08] VITALS: BP 165/88; PULSE 100; RESP 20; TEMP 36.8; O2SAT 94
[2025-01-22 16:01] VITALS: BP 133/86
== END 2025-01-22 16:28 | disposition home or self-care (01) | DRG 134 ==
LOC: HO.ED 22:03 → HO.EDOVER 22:07 → HO.IMC 01-21 13:32
PROVIDERS: Physician Assistant Medical; Registered Nurse Emergency; Admitting Provider Hospitalist; Emergency Provider Student in an Organized Health Care Education/Training Program; PCP Nurse Practitioner Primary Care; Visit Provider Internal Medicine
DX: I26.99 Other pulmonary embolism without acute cor pulmonale (principal); J93.9 Pneumothorax, unspecified; C34.11 Malignant neoplasm of upper lobe, right bronchus or lung; Z90.2 Acquired absence of lung [part of]; Z87.891 Personal history of nicotine dependence; Z79.899 Other long term (current) drug therapy
CPT/HCPCS: 36415; 80053; 83880; 84484; 85025; 85027; 85610; 85730; 93005; 93306; 93970; 94640; 99285; J1644; J2270; Q9957

== ENCOUNTER → 2025-01-20 18:49 | Outpatient (BNV) | payer OTHER, SELFPAY | PROVIDERS: Admitting Provider Hospitalist; Emergency Provider Student in an Organized Health Care Education/Training Program; PCP Nurse Practitioner Primary Care; Visit Provider Internal Medicine Cardiovascular Disease | DX: R06.00 Dyspnea, unspecified (principal) | CPT/HCPCS: 93010 ==

== ENCOUNTER 2025-01-20 21:44 | Outpatient (BNV) | payer OTHER, SELFPAY | END 2025-01-22 15:20 | PROVIDERS: Admitting Provider Hospitalist; Emergency Provider Student in an Organized Health Care Education/Training Program; PCP Nurse Practitioner Primary Care; Visit Provider Radiology Diagnostic Radiology | DX: I26.99 Other pulmonary embolism without acute cor pulmonale (principal) | CPT/HCPCS: 93970 ==

== ENCOUNTER 2025-01-20 21:44 | Outpatient (BNV) | payer OTHER, SELFPAY | END 2025-01-21 07:00 | PROVIDERS: Admitting Provider Hospitalist; Emergency Provider Student in an Organized Health Care Education/Training Program; PCP Nurse Practitioner Primary Care; Visit Provider Internal Medicine Cardiovascular Disease | DX: I26.99 Other pulmonary embolism without acute cor pulmonale (principal) | CPT/HCPCS: 93306 ==

== ENCOUNTER → 2025-01-20 21:44 | Outpatient (BNV) | payer OTHER, SELFPAY | PROVIDERS: Admitting Provider Hospitalist; Emergency Provider Student in an Organized Health Care Education/Training Program; PCP Nurse Practitioner Primary Care; Visit Provider Internal Medicine Pulmonary Disease | DX: I26.99 Other pulmonary embolism without acute cor pulmonale (principal); Z90.2 Acquired absence of lung [part of] | CPT/HCPCS: 99222 ==

== ENCOUNTER → 2025-01-20 21:44 | Outpatient (BNV) | payer OTHER, SELFPAY | PROVIDERS: Admitting Provider Hospitalist; Emergency Provider Student in an Organized Health Care Education/Training Program; PCP Nurse Practitioner Primary Care; Visit Provider Physician Assistant Medical | DX: I26.99 Other pulmonary embolism without acute cor pulmonale (principal); C34.90 Malignant neoplasm of unspecified part of unspecified bronchus or lung; Z90.2 Acquired absence of lung [part of] | CPT/HCPCS: 99223; 99233; 99239 ==

== ENCOUNTER 2025-02-18 13:07 | Outpatient (AMB) | payer OTHER, SELFPAY ==
[2025-02-18 13:21] VITALS: BP 138/86; PULSE 114; O2SAT 94
--- NOTE | 2025-02-18 13:21 | A.OFFVIS_ITS ---
Vital Signs 02/18/25 13:21 Height 5 ft 9 in BP 138/86 Blood Pressure Location Lt brachial Position Sitting Pulse 114 H Pulse Source Pulse Oximeter Pulse Oximetry (%) 94 Oxygen Delivery Method Room Air Intake Visit Reasons: Shortness of breath/6MW Post Partum Nurse Required: No Accompanied by: Self / Same As Patient Allergies No Known Allergies Allergy (Verified 02/18/25 13:22) HPI Comments Details: The patient is a 54-year-old gentleman found to have an abnormal hilar masslike density CAT scan. Apparently the patient was in his usual state health until back around [facility] when he started developing sudden onset chest discomfort. It was severe in nature. He has never had anything like this before. He was taken to the [facility] ED for further evaluation. He had blood work. He had a slight elevation in the white count. Viral testing was negative. He did undergo a CTA to rule out blood clots. No evidence of any thromboembolic disease. Although he appeared to have a masslike density. Based on the Hounsfield units seems to be more like fluid filled although is not 100% it looks irregular hilar and is pressing on the right upper airway airway causing some narrowing and also of the bronchus intermedius. The areas large which is involved. No other involvement in the lungs. We did personally review the images together. The patient does not have any previous imaging to compare. We did talk about the options. One option would be to do an endobronchial ultrasound with transbronchial needle aspirations which I believe will be the best option to see what this density is all about. CAT scans are not so good at looking at fluid densities was hard to know if is necrotic mass or if is actually fluid filled. In addition to that a PET scan would be reasonable. Although would not differentiate so much from an infectious versus malignant process. The patient is agreeable to undergoing the endobronchial ultrasound bronchoscopy. In view of the size in the concerns will go ahead and plan for the procedure next week. The patient is aware he is going to be NPO after midnight and he does not take any blood thinners or any GLP inhibitors. 01/20/2025 the patient is here for a pulmonary sick visit. He has been having worsening shortness of breath after his lobectomy. The patient did tolerate the chemo and radiation in the ultimately responded very well and tolerated the right upper lobe lobectomy. Unfortunately because of the nature of the disease he had to have an open procedure. He recovered well and he was doing well. But the last several days he has been having worsening shortness of breath. He did have a CTA I believe at [facility] and also a chest x-ray. They did an ultrasound demonstrating some amount of fluid but not enough to consider thoracentesis. He has been short of breath even with minimal activity moderate severity. We did go for a walking oximetry in the office and he did desaturate down to about 91% briefly the most part did not qualify for oxygen. The patient has heart rate was indeed elevated 115 beats per minute. Chest x-ray demonstrated a moderate- size pleural effusion. Appears to be larger than his previous x-ray last week. This could be resulting in worsening shortness of breath. However, more concerning is the blood work demonstrated a D-dimer of 3411 which is significantly elevated and concerning. The patient is high risk for thromboembolic disease. Will go ahead and request a urgent stat CT scan at this time to rule out PE. 02/18/2025 the patient is here for sick visit. He is having hard time with shortness of breath. He was admitted briefly to the hospital with a PE. He was placed on Eliquis. His echocardiogram was reassuring. He was subsequently discharged. Still complain of significant shortness of breath even with minimal activity. Denies any chest pain. He has been coughing more in the cough tends to be more hacky and persistent. We did review his CT scan of the chest that he had recently at [place]. We did talk about the slight collapse of the proximal right mainstem bronchus which I believe is dynamic. In addition to that the patient was noted to have the blood clot in the lingula branch artery. In addition to that just postop changes and a small effusion on the right side. In the visit we did go for brief walking oximetry. The patient did become tachycardic up to about 125 and he did desaturate down to 80%. He was visibly dyspneic with a dyspnea score of 7/10. He was able to rest. It was placed on 2 L pulse POC maintaining a pulse ox of 95% with activity feeling better the heart rate only went up to 115 this time. Therefore, will go ahead and start him on oxygen. He is also waiting for pulmonary rehab. He should be starting soon. The patient will have an x-ray today. He will be provide her with a nebulizer along with an Acapella valve for chest PT and mucus clearance since his right lung she is not opening up as much as it should be by now. He will need additional imaging studies to assess the blood clot which will plan to do in the next 3-4 weeks. If the patient continues to struggle in his lungs on opening up then a bronchoscopy may be warranted to assess the right mainstem bronchus make sure that is not kinked. For now the patient is to stay out of work. Will follow-up in a month after his repeat CT scan. [facility] Medical History (Updated 02/18/25 @ 22:01 by Dutch Rm MD) COPD (chronic obstructive pulmonary disease) Dyspnea Lung cancer Hilar mass HTN (hypertension) Social History Household Members: Spouse Housing: House Are you a primary reproductive healthcare assistant to a significant other at home: No Do you presently have visiting nurse or other home services: No Alcohol intake: current Alcohol intake frequency: a few times a week Alcohol type: beer Patient Tobacco Use Status: Former Tobacco user Tobacco use type: Cigarette Second Hand Smoke Exposure: No service: No Current occupational status: employed Review of Systems Const Denies chills, Denies daytime sleepiness, Denies fatigue, Denies fever(s), Denies poor appetite, Denies snoring, Denies stops breathing during sleep, Denies weakness and Reports weight loss Eyes Denies loss of vision ENT Denies dizziness and Denies hearing loss Card Denies chest pain, Denies irregular heart rhythm, Denies claudication, Denies leg edema, Denies lightheadedness, Reports palpitations, Reports dyspnea, Reports dyspnea on exertion and Denies orthopnea Resp Denies cough, Denies excessive phlegm production, Reports dyspnea, Reports dyspnea on exertion, Denies snoring and Denies wheezing GI Denies abdominal pain, Denies hematochezia, Denies change in bowel habits, Denies nausea and Denies vomiting Denies dysuria and Denies urinary frequency Musc Denies arthralgias, Denies muscle weakness, Denies numbness and Denies other Skin/Breast Denies nail changes and Denies rash Neuro Denies Abnormal speech present, Denies dizziness, Denies loss of vision, Denies memory loss, Denies numbness and Denies weakness Psych Denies depression and Denies memory loss Endo Denies fatigue and Reports palpitations Lester/Lymph Denies easy bruising Aller/Immun Denies wheezing Physical Exam Vital Signs: Last Vital Signs Pulse 114 H 02/18/25 13:21 BP 138/86 02/18/25 13:21 Pulse Ox 94 02/18/25 13:21 Oxygen Delivery Method Room Air 02/18/25 13:21 Const General: comfortable HEENT Head: Yes normocephalic Neck Neck: Yes no lymphadenopathy and Yes supple Chest Chest palpation & inspection: normal inspection of the chest Breast/axilla inspection: normal inspection of the axillae Resp Effort & Inspection: normal respiratory effort Auscultation: diminished lung sounds on the right Cardio Rate: regular rate Heart sounds: S1 normal heart sound present and S2 normal heart sound present GI Palpation (GI): Soft to palpation Skin General skin exam: no rashes or lesions noted Neuro Speech: No Abnormal speech present Extrem General: Yes no clubbing, cyanosis or edema Office Procedures 6 Minute Walk Time:: 15:37 SPO2 % at rest: 96 Pulse at rest: 90 SPO2 % during excercise: 88 Pulse during excercise: 125 Distance in yards walked: 200 Jewels Score: 7 Supplemental Oxygen: The patient desaturated with activity to 88%. The patient was placed on 2 L pulse maintaining a pulse ox of 95% with activity 23790 - 6 Minute Walk Assessment & Plan Assessment & Plan (1) Dyspnea: Code(s): R06.00 - Dyspnea, unspecified Category: Medical Qualifiers: Dyspnea type: shortness of breath Qualified Code(s): R06.02 - Shortness of breath (2) Lung cancer: Code(s): C34.90 - Malignant neoplasm of unspecified part of unspecified bronchus or lung Category: Medical Qualifiers: Laterality: right Lung location: upper lobe of lung Qualified Code(s): C34.11 - Malignant neoplasm of upper lobe, right bronchus or lung (3) Pulmonary embolism: Code(s): I26.99 - Other pulmonary embolism without acute cor pulmonale Category: Medical Qualifiers: Acute cor pulmonale presence: unspecified Chronicity: acute Pulmonary embolism type: unspecified Qualified Code(s): I26.99 - Other pulmonary embolism without acute cor pulmonale (4) COPD (chronic obstructive pulmonary disease): Code(s): J44.9 - Chronic obstructive pulmonary disease, unspecified Category: Medical Qualifiers: COPD type: chronic bronchitis Chronic bronchitis type: simple Qualified Code(s): J41.0 - Simple chronic bronchitis (5) Status post lobectomy of lung: Code(s): Z90.2 - Acquired absence of lung [part of] Category: Surgical Plan continue Eliquis Start Nebulizer BID followed by acapella for CPT Start Pulmonary Rehab Start Oxygen 2L/Pulse with activity Repeat CTA 3-4 weeks to reassess clot and also to reassess LIANE bronchus obstruction F/U 4-6 weeks Orders: Orders AMB 6 minute walk Today J44.9 - Chronic obstructive pulmonary disease, unspecified XR chest 2V Today R06.02 - Shortness of breath Basic Metabolic Panel Today C34.11 - Malignant neoplasm of upper lobe, right bronchus or lung, I26.99 - Other pulmonary embolism without acute cor pulmonale CT angio chest PE protocol 3 Weeks C34.11 - Malignant neoplasm of upper lobe, right bronchus or lung, I26.99 - Other pulmonary embolism without acute cor pulmonale Medications: New albuterol sulfate 2.5 mg (3 mL) inhalation Q4H PRN 180 mL 11RF shortness of breath or wheezing 30 days Coding Level of Care Code Est Pt Level 5 (91894) Diagnoses Shortness of breath R06.02 Dyspnea type: shortness of breath Malignant neoplasm of upper lobe of right lung C34.11 Laterality: right Lung location: upper lobe of lung Pulmonary embolism I26.99 Acute cor pulmonale presence: unspecified Chronicity: acute Pulmonary embolism type: unspecified Simple chronic bronchitis J41.0 COPD type: chronic bronchitis Chronic bronchitis type: simple Status post lobectomy of lung Z90.2 CPT Codes Coding ([id number]) Time Spent (min) 60
[2025-02-18 15:37] VITALS: PULSE 90; O2SAT 96
--- OUTSIDE RECORDS SUMMARY | 2025-02-18 16:30 | XMS_ITS | Clinical Summary ---
Author Organization [facility] Address [address] [place] [id number] Phone Care Team Providers Care Telephone Lineman Name Role Phone Milgaros Mejia NP Primary Care Provider Self-Referred, Patient Unavailable Unavailab le Encounters Date Type Department Care Team Description 02/10/[address] [facility] [address] [place] [id number] Emmy Nieves NP from Last 3 Months Social History Tobacco [...] file Medical Devices Not on file Insurance O O O Care Teams Telephone Lineman Relationship Specialty Start Date End Date Milagros Mejia NP [address] [place] [address] PCP - General Nurse Practitioner 11/03/24 Self-Referred, Patient 11/03/24 Additional Source Comments The information contained in this document represents components of the legal health record. It is not the complete legal health record.[facility]
--- OUTSIDE RECORDS SUMMARY | 2025-02-18 16:30 | XMS_ITS | Clinical Summary ---
Author Organization [facility] [address] [facility] Address [address] [place] [address] Phone Care Team Providers Care Bail Attacher Name Role Phone EmytaylormarielaMilagros Primary Care Provider [phone] Allergies No known active allergies Medications folic acid (FOLVITE) 1 mg tablet Take 1 tablet (1 mg total) by mouth 1 (one) time each day. 5 Active ondansetron ODT (ZOFRAN-ODT) 8 mg disintegrating tablet 1 tablet (8 mg total) every 8 (eight) hours if needed. 5 Active tadalafiL (CIALIS) 20 mg tablet Take 1 tablet (20 mg total) by mouth 1 (one) time each day if needed for erectile dysfunction. 5 Active amoxicillin-clavul anate XR (Augmentin XR) 1,000-62.5 mg per 12 hr tablet Take 1 tablet by mouth 2 (two) times a day for 7 days. 14 each 5 01/21/20 25 oxyCODONE (OXY-IR) 5 mg immediate release capsule Take 1 capsule (5 mg total) by mouth every 6 (six) hours if needed for moderate pain for up to 7 days. Take 2 tablets every 6 hrs as needed for severe pain Max Daily Amount: 20 mg 28 capsule 5 01/27/20 25 Active Problems Problem Noted Date Diagnosed Date [...] continue following up with Dr. Gamez from [place]. His next chest CT surveillance screening will [...] PM EDT Office Visit Thoracic Surgery - [address] [phone] Kennedy Cunningham PA Infected incision (Primary Dx) 01/12/2025 2:17 PM EDT - 01/12/2025 11:59 PM EDT Hospital Encounter [facility] CT Scan [address] [place] [phone] Primary cancer of right upper lobe of lung (CMS/HCC V24, CMS/HCC V28) Discharge Disposition: Home or Self Care 01/12/2025 1:30 PM EDT Consult Pulmonology - [address] [phone] Amina Cuevas MD Shortness of breath (Primary Dx); Abnormal chest x-ray; Primary adenocarcinoma of right lung (CMS/HCC V24, CMS/HCC V28) 01/12/2025 1:00 PM EDT Office Visit Thoracic Surgery - [address] [phone] Brianna Barrett, [place] Primary cancer of right upper lobe of lung (CMS/HCC V24, CMS/HCC V28) 01/12/2025 12:26 PM EDT - 01/12/2025 11:59 PM EDT Hospital Encounter [facility] Xray [address] [place] [phone] Primary cancer of right upper lobe of lung (CMS/HCC V24, CMS/HCC V28) Discharge Disposition: Home or Self Care 01/12/2025 Telephone Thoracic Surgery - [address] [phone] Ynes Armendariz RN 12/30/2024 8:34 AM EDT Anesthesia Event [facility] Main OR [address] [place] [phone] Chapito Woodward MD Walsh, Michael, DO 12/30/2024 8:30 AM EDT - 12/30/2024 1:[address] [facility] Main OR [address] [place] [phone] Bertha Garza MD Davvanii XI converted to thoracotomy right upper lobectomy, Davinci XI mediastinal lymphadenectomy, cryo nerve block [13151 (CPT ) +3 more] 12/30/2024 7:02 AM EDT - 01/04/2025 11:53 AM EDT Hospital Encounter [facility]mediate Care Unit [address] [place] [phone] Bertha Garza MD Surendran, Anupama, MD Mohani, Priya, MD Bell, Alistair A, MD Primary cancer of right upper lobe of lung ([facility]/HCC V24, [facility] V28) Discharge Disposition: Home or Self Care 12/15/2024 Telephone Thoracic Surgery - [address] [phone] Daniela Rodriguez [place] 12/14/2024 11:30 AM EDT Office Visit Thoracic Surgery - [address] [phone] Bertha Garza MD Primary cancer of right upper lobe of lung ([facility]/HCC V24, CMS/HCC V28) (Primary Dx) 12/10/2024 Telephone Thoracic Surgery [address] [phone] Shantel Costelol MA from Last 3 Months Surgical History Surgery Date Site/Laterality Comments BRONCHOSCOPY LUNG LOBECTOMY 12/30/2024 Right RUL Medical History Medical History Date Comments Lung cancer (CMS/HCC V24, CMS/HCC V28) 09/03/202 5 RUL Family History Medical History Relation Name [...] Safety Answer Date Record ed Physical Abuse Unrecognized value 12/31/2024 Verbal Abuse Unrecognized value 12/31/2024 Sex and Gender Information Value Date [...] Health Maintenance Due Date Last Done Comments Colorectal Cancer Screening: Colonoscopy 1969 Hepatitis B Vaccines (1 of 3 - 19+ 3-dose series) 1988 Pneumococcal Vaccine: 50+ Years (1 of 2 - PCV) 1988 Zoster Vaccines (1 of 2) 1988 Depression Screening 04/29/2024 Cholesterol Screening (Lipid Panel) 09/30/2024 HIV Screening 09/30/2024 Hepatitis C Screening [...] this topic Medical Devices Implanted Type Area Spine Surgeon Device Identifier Shelf Expiration Date Model / Serial / Lot Central/Perip heral Catheters And Ports Central/Peripher al Catheters and Ports Left: Chest Wall Hemostat Absorb Surgicel Nu-Knit 3x4in - Sn/A - [id number] Implanted:Qty : 1 on 12/30/2024 by Bertha Garza MD at [facility] Hemostasis Right: Chest [facility] [employer] [id number] 04/28/2029 [id number] / N/A / [id number] Sealant Fibrin Vistaseal 10ml - [id number] - [id number] Implanted:Qty : 1 on 12/30/2024 by Bertha Garza MD at [facility] Hemostasis Right: Chest [facility] [employer] [id number] 06/09/2026 [id number] Sealant Progel Air Pleural 4ml - Sn/A - [id number] Implanted:Qty : 1 on 12/30/2024 by Bertha Garza MD at [facility] [employer] Right: Chest CR - [employer] [id number] 01/27/2026 [id number] / N/A / [id number] Procedures Procedure Name Priority Date/Time Associated [...] GAS, [place] Routine 12/30/2024 3:59 PM EDT PD-L1 LUNG IHC Routine 12/30/2024 3:34 PM EDT Primary cancer of right upper lobe of lung (CMS/HCC V24, CMS/HCC V28) KRAS MUTATION ANALYSIS Routine 12/30/2024 3:34 PM EDT Primary cancer of right upper lobe of lung (CMS/HCC V24, CMS/HCC V28) BRAF MUTATION DNA SEQUENCING ANALYSIS Routine 12/30/2024 3:34 PM EDT Primary cancer of right upper lobe of lung (CMS/HCC V24, CMS/HCC V28) LUNG CANCER, ROS1, 6Q22 REARRANGEMENT, FISH Routine 12/30/2024 3:34 PM EDT Primary cancer of right upper lobe of lung (CMS/HCC V24, CMS/HCC V28) ALK, FISH Routine 12/30/2024 3:34 PM EDT Primary cancer of right upper lobe of lung (CMS/HCC V24, CMS/HCC V28) EPIDERMAL GROWTH FACTOR RECEPTOR MUTATION ANALYSIS Routine 12/30/2024 3:34 PM EDT Primary cancer of right upper lobe of lung (CMS/HCC V24, CMS/HCC V28) TISSUE EXAM Routine 12/30/2024 9:38 AM EDT Primary cancer of right upper lobe of lung (CMS/HCC V24, CMS/HCC V28) ANESTHESIA PERIPHERAL IV PLACEMENT Routine 12/30/2024 9:24 AM EDT TH AN ENDOTRACHEAL(NO CHARGE) Routine 12/30/2024 9:23 AM EDT TH AN ARTERIAL LINE (CHARGE) Routine 12/30/2024 9:03 AM EDT SC THORACOSCOPY SURGICAL WITH REMOVAL OF LUNG 12/30/2024 8:33 AM EDT Primary cancer of right upper lobe of lung (CMS/HCC V24, CMS/HCC V28) Case Notes [employer],INPT SC REM LUNG OTH THAN PNEUMONECTOMY W CIRC RESEC SEGM BRONCHUS F/B ANAST 12/30/2024 8:33 AM EDT Primary cancer of right upper lobe of lung (CMS/HCC V24, CMS/HCC V28) Case Notes [employer],INPT SC REMOVAL OF LUNG OTHER THAN PNEUMONECTOMY SINGLE LOBE 12/30/2024 8:33 AM EDT Primary cancer of right upper lobe of lung (CMS/HCC V24, CMS/HCC V28) Case Notes [employer],INPT SC THORACOSCOPY SURGICAL WITH LOBECTOMY 12/30/2024 8:33 AM [...] Signed Date: 01/12/2025 15:45 ET Workstation ID: [id number] Transcribed By: Self Edit Transcribed Date: 01/12/2025 [...] Signed Date: 01/12/2025 15:45 ET Workstation ID: [id number] Transcribed By: Self Edit Transcribed Date: 01/12/2025 15:39 ET Brianna Barrett BEHAVIOUR SUPPORT TEACHER IMG CT PROCEDURES Final Res ult * XR Chest 2 Views (01/12/2025 12:33 PM EDT) Anatomical Region Laterality Modality Body Radiographic Maria ging 01/13/2025 4:24 PM EDT Impressions 01/13/2025 4:27 PM EDT Impression: 1. Small right apical loculated hydropneumothorax status post right chest tube removal. 2. At least small right pleural effusion of the right base. 3. Port-A-Cath well-positioned. Telerad PA ([id number]) -------- FINAL REPORT -------- Dictated By: Mona Son Dictated Date: 01/13/2025 16:24 ET Assigned Physician: Mona Son Reviewed and Electronically Signed By: Mona Son Signed Date: 01/13/2025 16:27 ET Workstation ID: [id number] Transcribed By: Self Edit Transcribed Date: 01/13/2025 [...] silhouette remains normal in size. A left Saum-M-Egmijyulaxtvuw at the level of the SVC, unchanged. IMPRESSION: Impression: 1. Small right apical loculated hydropneumothorax status post right chesttube removal. 2. At least small right pleural effusion of the right base. 3. Port-A-Cath well-positioned. Telestephen FAYE ([id number]) -------- FINAL REPORT -------- Dictated By: Mona Son Dictated Date: 01/13/2025 16:24 ET Assigned Physician: Mona Son Reviewed and Electronically Signed By: Mona Son Signed Date: 01/13/2025 16:27 ET Workstation ID: [id number] Transcribed By: Self Edit Transcribed Date: 01/13/2025 16:24 ET us Kennedy FAYE IMG XR PROCEDURES Final Result [...] Signed Date: 01/04/2025 08:41 ET Workstation ID: [id number] Transcribed By: Self Edit Transcribed Date: 01/04/2025 08:34 ET Narrative 01/04/2025 8:41 AM EDT XR CHEST 1 VIEW INDICATION: Pain TECHNIQUE: XR CHEST 1 VIEW COMPARISON: 01/03/2025 Procedure Note Jeancarlos Mercedes MD - 01/04/2025 XR CHEST 1 VIEW INDICATION: Pain TECHNIQUE: XR CHEST 1 VIEW COMPARISON: 01/03/2025 IMPRESSION: FINDINGS/IMPRESSION: Right chest tube remains in place. Left Sntb-E-Nfihux unchanged. Volume loss in the right lung with small right apicalpneumothorax, similar compared to prior. Left lung is clear. Cardiacsilhouette and bones are stable. -------- FINAL REPORT -------- Dictated By: JEANCARLOS MERCEDES Dictated Date: 01/04/2025 08:34 ET Assigned Physician: JEANCARLOS MERCEDES Reviewed and Electronically Signed By: JEANCARLOS MERCEDES Signed Date: 01/04/2025 08:41 ET Workstation ID: [id number] Transcribed By: Self Edit Transcribed Date: 01/04/2025 08:34 ET Taylor FAYE IM XR PROCEDURES Final Resul t * (ABNORMAL) CBC - Every 3 Days (01/04/2025 5:41 AM EDT) Only the most recent of4 resultswithin the time period is included. WBC 17.1(H) 4.8 - 10.8 K/[facility] LAB HEMETOLOGY METHOD 01/04/2025 6:48 AM EDT [facility] RBC 2.70(L) 4.50 - 5.50 M/[facility] LAB HEMETOLOGY METHOD 01/04/2025 6:48 AM EDT [facility] Hemoglobin 8.1(L) 13.5 - 17.5 g/dL LAB HEMETOLOGY METHOD 01/04/2025 6:48 AM EDT [facility] Hematocrit 24.9(L) 42.0 - 54.0 % LAB HEMETOLOGY METHOD 01/04/2025 6:48 AM EDT [facility] MCV 92.9 79.0 - 98.0 FL LAB HEMETOLOGY METHOD 01/04/2025 6:48 AM EDT [facility] MCH 30.2 27.0 - 32.0 pcg LAB HEMETOLOGY METHOD 01/04/2025 6:48 AM EDT [facility] MCHC 32.5 32.0 - 37.0 g/dL LAB HEMETOLOGY METHOD 01/04/2025 6:48 AM [facility] RDW 13.7 11.0 - 15.0 % LAB HEMETOLOGY METHOD 01/04/2025 6:48 AM EDT [facility] Platelets 295 130 - 400 K/mcL LAB HEMETOLOGY METHOD 01/04/2025 6:48 AM EDT [facility] MPV 9.9 7.0 - 11.0 FL LAB HEMETOLOGY METHOD 01/04/2025 6:48 AM [facility] NRBC 0.0 <1.0 % LAB HEMETOLOGY METHOD 01/04/2025 6:48 AM EDT [facility] NRBC Absolute 0.00 <0.10 K/mcL LAB HEMETOLOGY METHOD 01/04/2025 6:48 AM [facility] Blood Blood sample taken from central line / Unknown Venipuncture / Unknown 01/04/2025 5:41 AM EDT 01/04/2025 6:22 AM EDT us Kennedy FAYE LAB BLOOD ORDERABLES Fin al Result [facility] [address] [place] [address], * (ABNORMAL) Basic metabolic panel (01/01/2025 6:45 AM EDT) Only the most recent of4 resultswithin the time period is included. Sodium 136 133 - 145 mmol/L LAB CHEMISTRY METHOD 01/01/2025 7:42 AM EDT [facility] Potassium 4.3 3.5 - 5.5 mmol/L LAB CHEMISTRY METHOD 01/01/2025 7:42 AM [facility] Chloride 102 96 - 110 mmol/L LAB CHEMISTRY METHOD 01/01/2025 7:42 AM [facility] CO2 29 21 - 32 mmol/L LAB CHEMISTRY METHOD 01/01/2025 7:42 AM [facility] Anion Gap 5 3 - 11 LAB CHEMISTRY METHOD 01/01/2025 7:42 AM [facility] Glucose 126(H) 70 - 100 mg/dL LAB CHEMISTRY METHOD 01/01/2025 7:42 AM [facility] BUN 28(H) 5 - 25 mg/dL LAB CHEMISTRY METHOD 01/01/2025 7:42 AM [facility] Creatinine 1.03 0.70 - 1.30 mg/dL LAB CHEMISTRY METHOD [facility] e[facility] 86 >=60 mL/min/1. 73m2 LAB CHEMISTRY METHOD 01/01/2025 7:42 AM [facility] Comment:Calculation based on the Chronic Kidney Disease Epidemiology Collaboration (CKD-EPI) equation refit without adjustment for race. BUN/Creatinine Ratio 27.2 LAB CHEMISTRY METHOD 01/01/2025 7:42 AM [facility] Calcium 9.2 8.5 - 10.5 mg/dL LAB CHEMISTRY METHOD 01/01/2025 7:[facility] Blood Venous blood specimen / Unknown Venipuncture / Unknown 01/01/2025 6:45 AM EDT 01/01/2025 7:22 AM EDT Michelle Parker MD LAB BLOOD ORDERABLES Final Result Performing Organization Address City/[facility]/ZIP Co de Phone Number [facility] [address] [place] [address], [place] [phone] * Phosphorus (12/31/2024 5:47 AM EDT) Only the most recent of2 resultswithin the time period is included. Phosphorus 3.9 2.5 - 4.5 mg/dL LAB CHEMISTRY METHOD 12/31/2024 7:17 AM EDT [facility] Blood Venous blood specimen / Unknown Venipuncture / Unknown 12/31/2024 5:47 AM EDT 12/31/2024 6:10 AM EDT us Brianna Barrett NP LAB BLOOD ORDERABLES Final Result Performing Organization Address [facility] Co de Phone Number [facility] [address] [place] [address], [place] [phone] * Magnesium (12/31/2024 5:47 AM EDT) Only the most recent of2 resultswithin the time period is included. Magnesium 1.9 1.9 - 2.6 mg/dL LAB CHEMISTRY METHOD 12/31/2024 7:17 AM EDT [facility] Comment:Hemolysis present Blood Venous blood specimen / Unknown Venipuncture / Unknown 12/31/2024 5:47 AM EDT 12/31/2024 6:10 AM EDT us Brianna Barrett NP LAB BLOOD ORDERABLES Final Result Performing Organization Address City/[facility]/ZIP Co de Phone Number [facility] [address] [place] [address], [place] [phone] * (ABNORMAL) POCT Arterial blood gas, [place] (12/30/2024 3:59 PM EDT) [facility] pH Arterial POCT 7.36 7.35 - 7.45 12/31/2024 6:55 AM EDT [facility] pO2 Arterial POCT 126(H) 80 - 100 mmHg 12/31/2024 6:55 AM EDT [facility] pCO2 Arterial POCT 40.1 35 - 45 mmHg 12/31/2024 6:55 AM EDT [facility] SO2 Arterial POCT 99(H) 95 - 98 % 12/31/2024 6:55 AM EDT [facility] TCO2 Arterial POCT 24 21 - 32 mmol/L 12/31/2024 6:55 AM EDT [facility] HCO3 Arterial POCT 22.8 22.0 - 26.0 mmol/L 12/31/2024 6:55 AM EDT [facility] Base Excess Arterial POCT -2 -2 - 2 mmol/L 12/31/2024 6:55 AM T [facility] Lactate Arterial POCT 1.96 0.9 - 2 mmol/L 12/31/2024 6:55 AM EDT [facility] Blood Arterial blood specimen / Unknown 12/30/2024 3:59 PM EDT 12/31/2024 6:56 AM EDT us Michelle Parker MD LAB POINT OF CARE T EST DOCKED DEVICE UNSOLICITED RESULTS Final Result [facility] [address] [place] [address], [place] [phone] * Epidermal growth factor receptor mutation analysis (12/30/2024 3:34 PM EDT) Scan Result See Scanned Result 02/02/2025 4:44 PM EDT EXTERNAL LAB (NON-INTERFAC ED) Tissue Structure of upper lobe of right lung / Unknown 12/30/2024 3:34 PM EDT 01/25/2025 8:14 AM EDT Bertha Garza MD LAB MOLECULAR DIAGNOSTICS ORDERA BLES Final Result EXTERNAL LAB (NON-INTERFACED) * BRAF mutation DNA sequencing analysis (12/30/2024 3:34 PM EDT) Scan Result See Scanned Result 02/02/2025 4:44 PM EDT EXTERNAL LAB (NON-INTERFAC ED) Tissue Structure of upper lobe of right lung / Unknown 12/30/2024 3:34 PM EDT 01/25/2025 8:14 AM EDT Bertha Garza MD LAB MOLECULAR DIAGNOSTICS ORDERA BLES Final Result Performing Organization Address City/[facility]/ZIP Co de Phone Number EXTERNAL LAB (NON-INTERFACED) * PD-L1 lung IHC (12/30/2024 3:34 PM EDT) Scan Result See Scanned Result 02/01/2025 9:22 AM EDT EXTERNAL LAB (NON-INTERFAC ED) Tissue Structure of upper lobe of right lung / Unknown 12/30/2024 3:34 PM EDT 01/25/2025 8:14 AM EDT Bertha Garza MD LAB PATHOLOGY ORDERABLES Final R esult EXTERNAL LAB (NON-INTERFACED) * Lung cancer, ROS1, 6Q22 rearrangement, FISH (12/30/2024 3:34 PM EDT) Scan Result See Scanned Result 02/01/2025 3:26 PM EDT EXTERNAL LAB (NON-INTERFAC ED) Tissue Structure of upper lobe of right lung / Unknown 12/30/2024 3:34 PM EDT 01/25/2025 8:14 AM EDT Bertha Garza MD LAB CYTOGENETICS ORDERABLES Vani l Result Performing Organization Address City/[facility]/ZIP Co de Phone Number EXTERNAL LAB (NON-INTERFACED) * KRAS mutation analysis (12/30/2024 3:34 PM EDT) Scan Result See Scanned Result 02/04/2025 9:04 AM EDT EXTERNAL LAB (NON-INTERFAC ED) Tissue Structure of upper lobe of right lung / Unknown 12/30/2024 3:34 PM EDT 01/25/2025 8:14 AM EDT Bertha Garza MD LAB MOLECULAR DIAGNOSTICS ORDERA BLES Final Result Performing Organization Address [facility] Co de Phone Number EXTERNAL LAB (NON-INTERFACED) * ALK, FISH (12/30/2024 3:34 PM EDT) Scan Result See Scanned Result 02/01/2025 3:27 PM EDT EXTERNAL LAB (NON-INTERFAC ED) Tissue Structure of upper lobe of right lung / Unknown 12/30/2024 3:34 PM EDT 01/25/2025 8:14 AM EDT Bertha Garza MD LAB CYTOGENETICS ORDERABLES Vani l Result Performing Organization Address City/[facility] Co de Phone Number EXTERNAL LAB (NON-INTERFACED) * Tissue exam (12/30/2024 9:38 AM EDT) Addendum 3 This case was sent t o [employer], [address], [place], [place], (CLIA #[id number]) for KRAS Mutation Analysis by PCR studies. Their diagnosis is as follows: Molecular Genetics KRAS Mutation Analysis by PCR Results: Test Result KRAS Mutation KRAS Exon 2 G12C Not Detected KRAS Exon 2 (G12A/D/R/V/S or G13D, not G12C) Not Detected KRAS Exon 3 (Q61H/L/R or A59E/G/T) Not Detected KRAS Exon 4 (K117N/R/E) Not Detected KRAS Exon 4 (A146T/P/V) Not Detected Electronic Signature Ovi Lazaro, Ph.D., [facility] Report Date: 02/03/2025 12:46:20 PM ET (Full report on file) 8:58 AM EDT [facility] Addendum electronically signed by Rex Livingston MD on 02/04/2025 at 0858 EDT Addendum 2 This case was sent t o [employer], [address], [place], (CLIA #[id number]) for BRAF Mutation Analysis by PCR studies. Their diagnosis is as follows: Molecular Genetics BRAF Mutation Analysis by PCR Results: Test Result BRAF Mutation BRAF V600E Not Detected BRAF V600K Not Detected BRAF V600D Not Detected BRAF V600R Not Detected BRAF V600G Not Detected Electronic Signature Shiraz Dangelo, Ph.D., [facility] Report Date: 02/01/2025 01:57:30 PM ET (Full report on file) __ This case was sent to [employer], [address], [place], (CLIA #[id number]) for EGFR Mutation Analysis by PCR studies. Their diagnosis is as follows: Molecular Genetics EGFR Mutation Analysis by PCR Results: Test Result EGFR Mutation EGFR Exon 18 G719X Not Detected EGFR Exon 19 Deletion Not Detected EGFR Exon 20 T790M c.2369C>T (p. T790M) Not Detected EGFR Exon 20 C797S Not Detected EGFR Exon 20 Insertion Not Detected EGFR Exon 20 S768I c.2303G>T (p. S768I) Not Detected EGFR Exon 21 L858R c.2573T>G (p. L858R) Not Detected EGFR Exon 21 L861Q c.2582T>A (p. L861Q) Not Detected Electronic Signature Shiraz Dangelo, Ph.D., [facility] Report Date: 02/01/2025 05:25:15 PM ET (Full report on file) 8:58 AM EDT [facility] Addendum electronically signed by Rex Livingston MD on 02/02/2025 at 1234 EDT Addendum This case was sent t o [employer], [address], [place], (CLIA #[id number]) for PD-L1 22C3 FDA for NSCLC studies. Their diagnosis is as follows: Histology Analysis PD-L1 22C3 FDA for NSCLC Results: PD-L1 22C3 FDA for NSCLC: HIGH PD-L1 EXPRESSION Tumor Proportion Score: 100% Intensity: 2+ Electronic Signature Dylan Luna M.D., Pathologist Report Date: 01/30/2025 03:10:07 PM ET (Full report on file) This case was sent to [employer], [address], [place], (CLIA #[id number]) for ROS1 studies. Their diagnosis is as follows: FISH Analysis ROS1 Results: Negative Interpretation: INT. SIGNAL PATTERN ABNORMALITY IDENTIFIED % CUTOFF ROS1 (6q22.1) Negative 0R,0G>=1F None - N/A Rearrangement There is no evidence of abnormalities. NOTE: The presence of other abnormalities, not detectable by this FISH probe set, cannot be ruled out. RECOMMENDATION: These results should be interpreted in conjunction with clinical and other laboratory findings. Electronic Signature Almaz Velez Report Date: 01/30/2025 09:03:34 PM ET (Full report on file) ___ This case was sent to [employer], [address], [place], (CLIA #[id number]) for ALK Lung studies. Their diagnosis is as follows: FISH Analysis ALK Lung Results: Negative Interpretation: INT. SIGNAL PATTERN ABNORMALITY IDENTIFIED % CUTOFF ALK Lung (2p23) Negative 0R,0G>=1F None - N/A Rearrangement There is no evidence of abnormalities. NOTE: The presence of other abnormalities, not detectable by this FISH probe set, cannot be ruled out. RECOMMENDATION: These results should be interpreted in conjunction with clinical and other laboratory findings. Electronic Signature Almaz Velez Report Date: 01/30/2025 09:07:38 PM ET (Full report on file) 8:58 AM EDT [facility] Addendum electronically signed by Rex Livingston MD on 02/01/2025 at 1454 EDT Final Diagnosis A. Mediastinum, righ t level [...] residual neoplasm (status post chemotherapy and immunotherapy) 8:58 AM EDT [facility] at 1623 EDT Comment Keratin (NELSY) immunohistology shows no residual viable neoplasm in the tumor bed. 8:58 AM EDT [facility] Synoptic Checklist LUNG LUNG [...] Segments of benign rib (part F) 5 8:58 AM EDT [facility] ([facility]) [facility] Gross Description A. Mediastinum, right [...] and grossly unremarkable trabeculated cut surface. A textiles sales representative section of each are submitted in [...] is inked green. Digital photographs are taken. Wood Coater sections are submitted in sixteen cassettes, including [...] whole hilar lymph node, one piece KR 8:58 AM EDT [facility] Intraoperative Consultation G. Lung, Right Upper Lobe, for vascular margin: Bronchial and vascular margins negative JS 8:58 AM T [facility] Disclaimer The immunohistochemistry stains were medically necessary and performed because the additional information was needed by the pathologist to determine presence of residual neoplasm. The immunohistochemical tests and in situ hybridization tests were developed and their performance characteristics were determined by [facility]. They have not been cleared [...] 10% NB formalin fixed and paraffin embedded. 8:58 AM T [facility] Lymph Node Mediastinal structure [...] PM EDT 12/30/2024 3:47 PM EDT us Bertha Garza MD LAB PATHOLOGY ORDERABLES Edited Result - Final [facility] ([facility]) [facility] [address] [place] [address], * Peripheral IV (12/30/2024 9:24 AM EDT) Narrative Alison Strange CRNA - 12/30/2024 9:24 AM EDT Alison Strange CRNA 12/30/2024 9:24 AM Peripheral IV Placement Needle size: 16 G Laterality: left Location: hand Local anesthetic: none Site prep: chlorhexidine Technique: anatomical landmarks Attempts: 1 us Darryl Sarkar MD ANESTHESIA ORDERABLES Final Re sult * TH AN ENDOTRACHEAL(NO CHARGE) (12/30/2024 9:23 AM EDT) Narrative Alison Strange CRNA - 12/30/2024 9:23 AM EDT Alison [...] to verify the correct patient, procedure, equipment, support services coordinator and site/side marked as required. Preparation: Patient [...] Leukoreduced (12/30/2024 7:43 AM EDT) Product Code [id number] 12/30/2024 6:16 PM EDT [facility] Unit Number [id number] 12/[facility] Comp[facility] 12/30/2024 8:39 AM EDT [facility] Dispense Status Released From Crossmatch 12/30[facility]2024 [facility] ABO Rh APOS 12/30/2024 6:[facility] Unit Expiration Date Time [id number] 12/30/2024 6:16 PM [facility] Unit Blood Type 6200 12/30/2024 6:16 [facility] Product Code [id number] 12/30/2024 6:15 PM EDT [facility] Unit Number [id number] 12/31/19 25 6:15 [facility] Cross[facility] 12/30/2024 8:39 AM [facility] Dispense Status Released From Crossmatch 12/30/2024 6:15 PM EDT [facility] Unit ABO Rh APOS 12/30/2024 6:15 PM EDT [facility]) [facility] Unit Expiration Date Time [id number] 12/30/2024 6:15 PM EDT [facility] Unit Blood Type 6200 12/30/2024 6:15 PM EDT [facility] Blood Venous blood specimen / Unknown 12/30/2024 7:43 AM EDT 12/24/2024 11:40 AM EDT Bertha Garza MD BLOOD BANK PRODUCT ORDERABLES Fi nal Result [facility]) [facility] [address] [place] [address], [place] [phone] * ECG 12 lead - Procedural (No Charge) (12/24/2024 11:03 AM EDT) Ventricular Rate ECG 69 BPM GEMUSE Atrial Rate 69 BPM GEMUSE P-R Interval 132 ms GEMUSE QRS Duration 70 ms GEMUSE Q-T Interval 382 ms GEMUSE QTc 409 ms GEMUSE P Wave [place] 40 degrees GEMUSE R [place] -8 degrees GEMUSE T [place] 8 degrees GEMUSE ECG Interpretation Normal sinus rhythm Normal ECG When compared with ECG of 17-AUG-2021 19:32, No significant change was found Confirmed by Marcial BEAVER YUFENG ([id number]) on 12/24/2024 6:39:16 PM GEMUSE 12/24/2024 11:0 3 AM EDT 12/24/2024 6:39 PM EDT Bertha Gazra MD ECG ORDERABLES Final Result GEMUSE * (ABNORMAL) CBC auto differential (12/24/2024 10:54 AM EDT) WBC 9.9 4.8 - 10.8 K/[facility] HEMETOLOGY METHOD 12/24/2024 11:50 AM [facility] RBC 3.80(L) 4.50 - 5.50 M/mcL LAB HEMETOLOGY METHOD 12/24/2024 11:50 AM [facility] Hemoglobin 11.6(L) 13.5 - 17.5 g/dL LAB HEMETOLOGY METHOD 12/24/2024 11:50 AM [facility] Hematocrit 34.8(L) 42.0 - 54.0 % LAB HEMETOLOGY METHOD 12/24/2024 11:50 AM [facility] MCV 91.6 79.0 - 98.0 FL LAB HEMETOLOGY METHOD 12/24/2024 11:50 AM [facility] MCH 30.5 27.0 - 32.0 pcg LAB HEMETOLOGY METHOD 12/24/2024 11:50 AM [facility] MCHC 33.3 32.0 - 37.0 g/dL LAB HEMETOLOGY METHOD 12/24/2024 11:50 AM [facility] RDW 14.1 11.0 - 15.0 % LAB HEMETOLOGY METHOD 12/24/2024 11:50 AM [facility] Platelets 298 130 - 400 K/mcL LAB HEMETOLOGY METHOD 12/24/2024 11:50 AM [facility] MPV 9.3 7.0 - 11.0 FL LAB HEMETOLOGY METHOD 12/24/2024 11:50 AM [facility] NRBC 0.0 <1.0 % LAB HEMETOLOGY METHOD 12/24/2024 11:50 AM [facility] NRBC Absolute 0.00 <0.10 K/mcL LAB HEMETOLOGY METHOD 12/24/2024 11:50 AM [facility] Neutrophils Relative 91.8 % LAB HEMETOLOGY METHOD 12/24/2024 11:50 AM [facility] Lymphocytes Relative 5.1 % LAB HEMETOLOGY METHOD 12/24/2024 11:50 AM [facility] Monocytes Relative 1.0 % LAB HEMETOLOGY METHOD 12/24/2024 11:50 AM [facility] Eosinophils Relative 0.1 % LAB HEMETOLOGY METHOD 12/24/2024 11:50 AM [facility] Basophils Relative 0.3 % LAB HEMETOLOGY METHOD 12/24/2024 11:50 AM [facility] Immature Granulocytes Relative 1.7 % LAB HEMETOLOGY METHOD 12/24/2024 11:50 AM [facility] Neutrophils Absolute 9.08(H) 1.50 - 7.00 K/mcL LAB HEMETOLOGY METHOD 12/24/2024 11:50 AM [facility] Lymphocytes Absolute 0.50(L) 1.00 - 5.00 K/mcL LAB HEMETOLOGY METHOD 12/24/2024 11:50 AM [facility] Monocytes Absolute 0.10(L) 0.20 - 1.00 K/mcL LAB HEMETOLOGY METHOD 12/24/2024 11:50 AM [facility] Eosinophils Absolute 0.01 0.00 - 0.50 K/mcL LAB HEMETOLOGY METHOD 12/24/2024 11:50 AM [facility] Basophils Absolute 0.03 0.00 - 0.20 K/mcL LAB HEMETOLOGY METHOD 12/24/2024 11:50 AM [facility] Immature Granulocytes Absolute 0.17(H) 0.00 - 0.03 K/mcL LAB HEMETOLOGY METHOD 12/24/2024 11:50 AM [facility] Blood Venous blood specimen / Unknown Venipuncture / Unknown 12/24/2024 10:54 AM EDT 12/24/2024 11:39 AM EDT us Bertha Garza MD LAB BLOOD ORDERABLES Final Resul t Performing Organization Address [facility]/ZIP Co de Phone Number [facility] [address] [place] [address], [place] [phone] * Activated partial thromboplastin time (12/24/2024 10:54 AM EDT) aPTT 30.9 24.1 - 39.3 sec LAB COAGULATION METHOD 12/24/2024 11:56 AM EDT [facility] Blood Venous blood specimen / Unknown Venipuncture / Unknown 12/24/2024 10:54 AM EDT 12/24/2024 11:39 AM EDT us Bertha Garza MD LAB BLOOD ORDERABLES Final Resul t Performing Organization Address [facility] Co de Phone Number [facility] [address] [place] [address], [place] [phone] * (ABNORMAL) Prothrombin time with INR (12/24/2024 10:54 AM EDT) [facility] Protime 9.8(L) 10.6 - 13.9 sec LAB COAGULATION METHOD 12/24/2024 11:56 AM EDT [facility] INR 0.8 LAB COAGULATION METHOD 12/24/2024 11:56 AM EDT [facility] Blood Venous blood specimen / Unknown Venipuncture / Unknown 12/24/2024 10:54 AM EDT 12/24/2024 11:39 AM EDT us Bertha Garza MD LAB BLOOD ORDERABLES Final Resul t Performing Organization Address City/[facility]/ZIP Co de Phone Number [facility] [address] [place] [address], [place] [phone] * Type and screen (12/24/2024 10:54 AM EDT) ABO Group A 12/24/2024 12:39 PM EDT [facility] Rh Type Positive 12/24/2024 12:39 PM EDT [facility] Antibody Screen Negative 12/24/2024 12:39 PM EDT [facility] Blood Venous blood specimen / Unknown Venipuncture / Unknown 12/24/2024 10:54 AM EDT 12/24/2024 11:40 AM EDT us Bertha Garza MD LAB BLOOD BANK TEST ORDERABLES F inal Result [facility] [address] [place] [address], from Last 3 Months Insurance [facility] Advance Directives * Full Code - Default [...] currently active code status orders. Care Teams Bail Attacher Relationship Specialty Start Date End Date Milagros Mejia [address] [place] [address] [address] [place] [id number] PCP - General Family Medicine 12/14/24
--- OUTSIDE RECORDS SUMMARY | 2025-02-18 16:30 | XMS_ITS | Encounter Summary ---
Author Organization [facility] Address [address] [place] [phone] Phone Care Team Providers Care Supervisor Purification Name Role Phone Anusha Aparicio ORDER TRACER Primary Care Provider [phone] Milagros Mejia ORDER TRACER Primary Care Provider Self-Referred, Patient Unavailable Unavailab le Encounter Details Date Type Department Care Team (Late st Contact Info) Description 02/03/2021 Procedure Pass [facility] Endoscopy Admitting Dept Virtual Department [address] [place] [id number] Social History Tobacco Use Types Packs/Day Years [...] on filedocumented in this encounter Care Teams Supervisor Purification Relationship Specialty Start Date End Date Anusha Aparicio, ORDER TRACER [address] [place] [address] PCP - General Nurse Practitioner 12/02/20 11/02/24 Milagros Mejia NP [address] [place] [address] PCP - General Nurse Practitioner 11/03/24 Self-Referred, Patient 11/03/24 documented as of this encounter Additional Source Comments The information contained in this document represents components of the legal health record. It is not the complete legal health record.[facility]
== END 2025-02-18 14:03 | disposition home or self-care (01) ==
LOC: HO.HPS 13:08
PROVIDERS: PCP Nurse Practitioner Primary Care; Visit Provider Hospitalist
DX: R06.02 Shortness of breath (principal); C34.11 Malignant neoplasm of upper lobe, right bronchus or lung; I26.99 Other pulmonary embolism without acute cor pulmonale; J41.0 Simple chronic bronchitis; Z90.2 Acquired absence of lung [part of]
CPT/HCPCS: 94618; 99215

== ENCOUNTER 2025-02-18 13:07 | Outpatient (REF) | payer OTHER, SELFPAY ==
--- NOTE | ~2025-02-18 | XR_ITS ---
EXAMINATION: XR CHEST CLINICAL INFORMATION: R06.02 - Shortness of breath COMPARISON: January 20 2025 TECHNIQUE: 2 views of the chest were obtained. FINDINGS: Again seen is a port in the left upper chest with catheter terminating in superior cavoatrial junction in the left internal jugular vein. The left lung is clear and well aerated. There is chronic elevation of the right hemidiaphragm with tenting laterally and mildly increased perihilar markings are similar to the prior. XR/XR chest 2V IMPRESSION: Stable chest x-ray. Electronically signed by: Caleb Stout MD 02/18/2025 02:22 PM EDT
== END 2025-02-18 13:08 | disposition home or self-care (01) ==
LOC: HO.XRAY 13:07
PROVIDERS: PCP Nurse Practitioner Primary Care; Visit Provider Hospitalist
DX: J44.9 Chronic obstructive pulmonary disease, unspecified (principal); R06.02 Shortness of breath; C34.11 Malignant neoplasm of upper lobe, right bronchus or lung; I26.99 Other pulmonary embolism without acute cor pulmonale; J41.0 Simple chronic bronchitis; Z90.2 Acquired absence of lung [part of]
CPT/HCPCS: 71046; 94618

== ENCOUNTER → 2025-02-18 14:10 | Outpatient (BNV) | payer OTHER, SELFPAY | PROVIDERS: PCP Nurse Practitioner Primary Care; Visit Provider Radiology Diagnostic Radiology | DX: R06.02 Shortness of breath (principal) | CPT/HCPCS: 71046 ==

== ENCOUNTER 2025-04-05 09:34 | Outpatient (REF) | payer OTHER, SELFPAY ==
[2025-04-05 11:16] LABS: Anion Gap 13 (12-20); Blood Urea Nitrogen 15 mg/dL (9-16); Calcium 9.8 mg/dL (8.4-10.2); Carbon Dioxide 28 mmol/L (22-29); Chloride 103 mmol/L (96-108); Estimated Glomerular Filt Rate > 60; Potassium 4.2 mmol/L (3.3-5.1); Sodium 140 mmol/L (135-145)
== END 2025-04-05 09:35 | disposition home or self-care (01) ==
LOC: HO.LAB 09:34
PROVIDERS: PCP Nurse Practitioner Primary Care; Visit Provider Hospitalist
DX: I26.99 Other pulmonary embolism without acute cor pulmonale (principal); C34.11 Malignant neoplasm of upper lobe, right bronchus or lung
CPT/HCPCS: 36415; 80048

== ENCOUNTER 2025-04-07 10:12 | Outpatient (REF) | payer OTHER, SELFPAY ==
--- NOTE | ~2025-04-07 | CT_ITS ---
EXAMINATION: CT ANGIOGRAM CHEST CLINICAL INFORMATION: I26.99 - Other pulmonary embolism without acute cor pulmonale COMPARISON: 01/20/2025 TECHNIQUE: Multiple axial images were obtained through the chest after the administration of 85 mL of Omnipaque 350 intravenous contrast. Extensive vascular post-processing including two-dimensional and three-dimensional reformatted images were created and reviewed on an independent workstation. This CT examination was performed using dose optimization techniques as appropriate, variously including the following: *Automated exposure control *Adjustment of mA and/or kV according to patient size (this includes techniques or standardized protocols for targeted exams where dose is matched to indication/reason for exam; i.e. extremities or head) *Use of iterative reconstruction technique FINDINGS: QUALITY OF STUDY/CONTRAST BOLUS: Suboptimal with incomplete opacification of tertiary branches. PULMONARY ARTERIES: No central pulmonary emboli. Emboli of peripheral vessels cannot be conclusively excluded. THORACIC AORTA: There is no aneurysm, dissection, or vascular calcifications. LUNGS AND PLEURA: Again seen are postoperative changes with resection of portion of the right lung. There are postoperative changes in the right hilum. There is opacity in the anterior medial lung consistent with atelectasis and scarring. Again seen is a small pneumatocele in the central right lung. Small right pleural effusion has decreased in size. There has been interval resolution of a focal 15 mm opacity in the lateral right lung base. MEDIASTINUM: Again seen are postoperative changes in the right mediastinum and hilum with persistent severe focal narrowing/near occlusion of the right mainstem bronchus. There is no adenopathy. There is no right heart strain. Heart size is within normal limits. CORONARY ARTERY CALCIFICATION: Minimal CHEST WALL/AXILLA: No axillary or internal mammary lymphadenopathy. UPPER ABDOMEN: Unremarkable BONES: There is maturing callus with minimal bridging bone related to a fracture lateral right fifth rib. Again seen is resection of the lateral right sixth rib. Bridging osteophytes are visible in the mid to lower thoracic spine with mild disc space narrowing. CT/CT angio chest PE protocol IMPRESSION: There are no filling defects to suggest a pulmonary artery embolus. There is suboptimal filling of some secondary and tertiary branches. Again seen are postoperative changes following resection of a portion of the right lung. There are also right hilar postoperative changes. There is stable severe stenosis or near occlusion of the right mainstem bronchus. Small right pleural effusion has decreased in size. Fleischner guidelines were followed. Electronically signed by: Caleb Stout MD 04/07/2025 11:25 AM [facility]
[2025-04-07] MEDS: iohexoL 350 MG/ML 100 ML INFUS..BTL 65 ML IV (10:58)
== END 2025-04-07 10:13 | disposition home or self-care (01) ==
LOC: HO.CT 10:12
PROVIDERS: PCP Nurse Practitioner Primary Care; Visit Provider Hospitalist
DX: C34.11 Malignant neoplasm of upper lobe, right bronchus or lung (principal); I26.99 Other pulmonary embolism without acute cor pulmonale
CPT/HCPCS: 71275; Q9967

== ENCOUNTER → 2025-04-07 10:13 | Outpatient (BNV) | payer OTHER, SELFPAY | PROVIDERS: PCP Nurse Practitioner Primary Care; Visit Provider Radiology Diagnostic Radiology | DX: I26.99 Other pulmonary embolism without acute cor pulmonale (principal); J90 Pleural effusion, not elsewhere classified | CPT/HCPCS: 71275 ==

== ENCOUNTER 2025-04-13 12:15 | Day surgery (SDC) | payer OTHER, SELFPAY ==
[2025-04-09 09:58] VITALS: BMI 32.9
[2025-04-13] VITALS (7 sets, daily range): BP systolic 134–164; BP diastolic 74–101; PULSE 89–121; RESP 16–28; TEMP 36.1–36.4; O2SAT 94–98; BMI 33.1
[2025-04-13] MEDS: Lactated Ringers 1,000 ML 100 ML IVCONT (12:49)
--- NOTE | 2025-04-13 12:54 | P.HPSUR_ITS ---
Pre-Procedural Eval Section A - 24 Hr Update-Section A only Date of Service: 04/13/25 The patient is an INPATIENT: No Changes since office visit: No Cold of Flu in the past 2 weeks, No New Medical Problems, No Changes in Medication and No Patient answered all questions The patient has been examined within 24 hours of the surgical procedure. The History & Physical has been completed within 30 days and I have reviewed it.: No Section B - Complete if H&P > 30 days Chief Complaint: Malignant neoplasm of unspecified main bronchus Details of Present Illness: The patient is status post neoadjuvant chemora diation followed by right-sided lung resection for lung cancer. Has a question right mainstem stenosis on CT scan of the chest. Relevant Family History (Specify if Yes): No Relevant Social History: Tobacco Use Present Medications: see Short Stay Collaborative assessment Medical History: Significant History History of Previous Operations: Relevant previous surgery/procedure and date(s) Allergies: Allergies Allergy/AdvReac Type Severity Reaction Status Date / Time No Known Allergies Allergy Verified 02/18/25 13:22 Review of Systems Sugical H&P ROS: Negative: Constitution, Cardiovascular, Psychiatric, Hem-Onc (Pulmonary emboli), Genitourinary, Musculoskeletal, Integumentary and Endocrine and Yes, Specify: Respiratory (Dyspnea), Neurological, Allergic/Immunologic and Gastrointestinal (Swelling) Exam Surgical H&P Exam: Normal: HEENT, Normal: Heart, Normal: Extremities, Normal: Abdomen, Normal: Skin and Normal: Neurological and Significant Findings: Lungs (Diminished) Plan Diagnosis/Plan: Change (Question right mainstem bronchus stenotic area. Plan for bronchoscopy for direct visualization) I have reviewed the history and physical and performed a pertinent physical examination on my patient. No changes have occurred unless specified. Time Spent With Patient Time: Total time managing care of this patient today ____ minutes.
--- NOTE | 2025-04-13 13:27 | HO.ANESPROP2 ---
Documented by User: Daniela Muniz NP 04/09/25 09:08 HPI - Anesthesia Eval Consult details Narrative: 54yo M for Bronchoscopy Fiberoptic R Lung CA s/p ?thoracotomy right upper lobectomy, mediastinal lymphadenectomy 12/2024 Follows [facility] oncology for chemo/immunotherapy (prn prednisone for side effects/rash) PE post op, on eliquis PMFSH Active Problems Active Problems: All Active Problems COPD (chronic obstructive pulmonary disease) (Acute) Status post lobectomy of lung (Acute) Pulmonary embolism (Acute) Blood D-dimer assay positive (Acute) Dyspnea (Acute) Non-small cell lung cancer (Chronic) Lung cancer (Acute) Hilar mass (Acute) Past Medical History Medical History (Updated 04/09/25 @ 09:58 by Marlin Love RN) On home oxygen therapy Port-A-Cath in place Non-small cell lung cancer (NSCLC) Pulmonary embolism COPD (chronic obstructive pulmonary disease) Dyspnea Hilar mass HTN (hypertension) Surgical History Surgical History (Updated 04/09/25 @ 09:53 by Marlin Love RN) Hx of surgical procedure History of lobectomy of lung History of Problems with Anesthesia: No Social History Social History Household Members: Spouse Housing: House Are you a primary healthcare administration internship to a significant other at home: No Do you presently have visiting nurse or other home services: No Alcohol intake: current Alcohol intake frequency: a few times a week Alcohol type: beer Patient Tobacco Use Status: Former Tobacco user Tobacco use type: Cigarette Second Hand Smoke Exposure: No Use of substances other than those prescribed or required for medical reasons: No Advance Directives: No Advance Directives Information Provided: Yes service: No Current occupational status: employed Meds Allergies Allergy/AdvReac Type Severity Reaction Status Date / Time No Known Allergies Allergy Verified 02/18/25 13:22 Home Medications ?Medication ?Instructions ?Recorded ?Confirmed ?Last Taken ?Type tadalafil 20 mg tablet 20 mg PO DAILY PRN erectile 09/03/24 04/09/25 Unknown History disfunction acetaminophen 325 mg tablet 650 mg PO Q6H PRN Pain 01/20/25 04/09/25 Unknown History (Tylenol) ibuprofen 200 mg tablet 600 mg PO Q6H PRN Pain 01/20/25 04/13/25 04/05/25 History prednisone 20 mg tablet 40 mg PO DAILY PRN Side effects 01/20/25 04/09/25 Unknown History from Chemo Exam Pertinent Lab Results Pertinent Lab Results: Laboratory Tests 03/18/25 04/05/25 08:48 09:47 WBC 7.3 Hgb 12.8 L Hct 39.6 L Plt Count 253 Sodium 140 Potassium 4.2 Chloride 103 Carbon Dioxide 28 BUN 15 Creatinine 0.78 Narrative Narrative: EKG 12/2024 Vent. Rate : 83 BPM Atrial Rate : 83 BPM P-R Int : 120 ms QRS Dur : 70 ms QT Int : 356 ms P-R-T Axes : 43 -13 26 degrees QTcB Int : 418 ms Normal sinus rhythm Normal ECG When compared with ECG of 17-Aug-2024 16:29, No significant change was found ECHO 12/2024 Conclusions: - Normal left ventricular size, thickness, systolic function, and wall motion. The visually estimated ejection fraction is between 60-65%. Diastolic function is normal for age. - Normal right ventricular cavity size and systolic function. Assessment and Plan Assessment Anesthesia Assessment: Chart Reviewed Final Anesthetic Review History of Problems with Anesthesia: No Documented by User: Sheryl Davila DO 04/13/25 13:32 HPI - Anesthesia Eval Consult details Narrative: 54yo M for Bronchoscopy Fiberoptic. Uses supplemental oxygen with activity (2LNC) R Lung CA s/p ?thoracotomy right upper lobectomy, mediastinal lymphadenectomy 12/2024 Follows [facility] oncology for chemo/immunotherapy (prn prednisone for side effects/rash) PE post op, on eliquis PMFSH Past Medical History Medical History (Updated 04/09/25 @ 09:58 by Marlin Love RN) On home oxygen therapy Port-A-Cath in place Non-small cell lung cancer (NSCLC) Pulmonary embolism COPD (chronic obstructive pulmonary disease) Dyspnea Hilar mass HTN (hypertension) Family History Family history of problems with anesthesia: No Surgical History Surgical History (Updated 04/09/25 @ 09:53 by Marlin Love RN) Hx of surgical procedure History of lobectomy of lung History of Problems with Anesthesia: No Social History Social History Household Members: Spouse Housing: House Are you a primary healthcare administration internship to a significant other at home: No Do you presently have visiting nurse or other home services: No Alcohol intake: current Alcohol intake frequency: a few times a week Alcohol type: beer Patient Tobacco Use Status: Former Tobacco user Tobacco use type: Cigarette Second Hand Smoke Exposure: No Use of substances other than those prescribed or required for medical reasons: No Advance Directives: No Advance Directives Information Provided: Yes service: No Current occupational status: employed Meds Allergies Allergy/AdvReac Type Severity Reaction Status Date / Time No Known Allergies Allergy Verified 02/18/25 13:22 Home Medications ?Medication ?Instructions ?Recorded ?Confirmed ?Last Taken ?Type tadalafil 20 mg tablet 20 mg PO DAILY PRN erectile 09/03/24 04/09/25 Unknown History disfunction acetaminophen 325 mg tablet 650 mg PO Q6H PRN Pain 01/20/25 04/09/25 Unknown History (Tylenol) ibuprofen 200 mg tablet 600 mg PO Q6H PRN Pain 01/20/25 04/13/25 04/05/25 History prednisone 20 mg tablet 40 mg PO DAILY PRN Side effects 01/20/25 04/09/25 Unknown History from Chemo Exam Exam Date and Time: 04/13/25 1325 Height,Weight and Vital Signs: Height 5 ft 9 in Weight 101.7 kg Vital Signs Temperature 97.5 F 04/13/25 12:49 Pulse Rate 89 04/13/25 12:49 Respiratory Rate 16 04/13/25 12:49 Blood Pressure 156/100 H 04/13/25 12:49 Pulse Oximetry 97 04/13/25 12:49 Oxygen Delivery Method Room Air 04/13/25 12:49 Temperature 97.5 F 04/13/25 12:49 Pulse Rate 89 04/13/25 12:49 Respiratory Rate 16 04/13/25 12:49 Blood Pressure 156/100 H 04/13/25 12:49 Pulse Oximetry 97 04/13/25 12:49 Oxygen Delivery Method Room Air 04/13/25 12:49 Airway Mallampati Class: II TM Dist: >3cm Neck ROM: Full Loose/Missing/Broken Teeth: No (patient denies any loose or broken teeth) Heart: S1S2 Lungs: Diminished bilaterally Assessment and Plan Assessment Anesthesia Assessment: Anesthesia Plan Discussed and Chart Reviewed Final Anesthetic Review Family History of Problems with Anesthesia: No History of Problems with Anesthesia: No NPO: Yes ASA Class: III Final Preanesthetic Review: No Changes in Pt Med Stat, Meds/Allgs Chart Reviewed, Consent Obtained/Reviewed and Anes Risks/Benef Reviewed Patient Risk: Intermediate Procedure Risk: Low Anesthetic Plan Anesthetic Plan: GA (vs MAC - will discuss with surgeon) and Agree w/ Assess. and Plan Disposition: Standard PACU
--- NOTE | 2025-04-13 15:49 | P.BOP_ITS ---
Brief Operative Note Date of Service: 04/13/25 Pre-op diagnosis: LIANE obstruction Post-op diagnosis: same Procedure: Bronchoscopy with biopsies, brushings, washings Implants: Surgeon: Dutch Rm MD Anesthesia: GLMA Was an Putty And Patch Worker used for this Procedure?: No Estimated blood loss (mL): 1 Pathology: other (LIANE bronchus mass) Condition: stable Disposition: same day
--- NOTE | 2025-04-14 01:42 | OP_ITS ---
DATE OF SERVICE: 04/13/2025 SURGEON: Dutch Rm MD PREOPERATIVE DIAGNOSIS: Right mainstem obstruction. POSTOPERATIVE DIAGNOSIS: Right mainstem obstruction. PROCEDURE PERFORMED: Bronchoscopy with biopsies, washings, and brushings. ESTIMATED BLOOD LOSS: COMPLICATIONS: ANESTHESIA: LMA. ASSISTANTS: SPECIMENS: ASA CLASSIFICATION: III. DESCRIPTION OF PROCEDURE: After the patient was adequately sedated, LMA in place, the flexible digital bronchoscope was inserted via the LMA to the level of the larynx. The vocal cords appeared to be normal. The patient did have some inflammation of arytenoids. After instilling lidocaine, the bronchoscope was then passed through the vocal cords to the level of the tracheal. The tracheal mucosa appeared normal, and it was completely patent. Additional lidocaine was administered, and then the bronchoscope was navigated into the entire tracheobronchial tree. The patient did have a significant, about 99%, obstruction of the right mainstem bronchus proximally. The area has been affected by hypervascular area. It is hard to know if it is related to recurrence of his cancer or if it is related to the radiation changes. I was able to pass the bronchoscope past the obstruction and then the bronchus intermedius was clear. The area of the right middle lobe, where he had the surgery, appears to also be abnormal in appearance, raised, and hypervascular. The patient also has a polypoid lesion in the right middle lobe area. The right lower lobe appears to be okay. Rest of the airways are okay. The left-sided airways are perfectly fine. The bronchoscope was navigated again to the proximal area of the right middle lobe, where both cytologic and microscopic brushings were performed. Bronchial washings were also collected. Endobronchial forceps biopsies were also performed at this mass-like density in the right mainstem bronchus. Some bleeding was noted. The patient did receive 1 ampule of epinephrine with good hemostasis. Ice saline was also useful with good effect. Otherwise, the patient tolerated the procedure well. No complications. He was given Decadron after the procedure to decrease swelling of the area, especially because of the high-grade obstruction. The total endoscopic time was approximately half an hour. The patient tolerated the procedure well. Vital signs were stable. STRADDLE TRUCK DRIVER: None. MD HEIDI Denis/MARY / [id number]
== END 2025-04-13 15:33 | disposition home or self-care (01) ==
PROVIDERS: PCP Nurse Practitioner Primary Care; Visit Provider Hospitalist
PROC: 0BJ08ZZ Inspection of Tracheobronchial Tree, Via Natural or Artificial Opening Endoscopic (ICD-10-PCS; CPT 31622; principal; 2025-04-13 14:00)
DX: C34.01 Malignant neoplasm of right main bronchus (principal); R91.8 Other nonspecific abnormal finding of lung field; R06.02 Shortness of breath; I26.99 Other pulmonary embolism without acute cor pulmonale; Z85.118 Personal history of other malignant neoplasm of bronchus and lung; Z90.2 Acquired absence of lung [part of]; J41.0 Simple chronic bronchitis; J44.9 Chronic obstructive pulmonary disease, unspecified; I10 Essential (primary) hypertension; Z79.01 Long term (current) use of anticoagulants; Z79.899 Other long term (current) drug therapy; Z87.891 Personal history of nicotine dependence
CPT/HCPCS: 31625; 31623; 87070; 87205; 88112; 88305; J0165; J1100; J2003; J2405; J2704; J3010

== ENCOUNTER → 2025-04-13 12:15 | Outpatient (BNV) | payer OTHER, SELFPAY | PROVIDERS: PCP Nurse Practitioner Primary Care; Visit Provider Hospitalist | DX: R91.8 Other nonspecific abnormal finding of lung field (principal) | CPT/HCPCS: 31623; 31625 ==